=== PATIENT | female | born 1955 | race Caucasian/White ===

== ENCOUNTER 2020-06-27 09:33 | Outpatient (REF) | payer OTHER, SELFPAY ==
--- NOTE | ~2020-06-27 | MM_ITS ---
EXAMINATION: MM SCREENING DIGITAL BREAST TOMOSYNTHESIS, BILATERAL CLINICAL INFORMATION: Screening. Asymptomatic. The lifetime risk of breast cancer based on the Tyrer-Cuzick Model is 5%. COMPARISON: Mammography: 11/14/2018, 10/14/2017, 09/14/2016 TECHNIQUE: Digital breast tomosynthesis is performed in both the craniocaudal and mediolateral oblique views along with computer-aided detection (CAD). Synthesized 2D images are generated from the tomosynthesis. FINDINGS: There are scattered areas of fibroglandular density (ACR BI-RADS breast composition Category b). There are no significant masses, abnormal calcifications, or other abnormalities. Parenchymal pattern is similar to prior studies. No developing density. Again, there are scattered bilateral benign predominantly round and coarse calcifications. No significant changes. MM/MM tomosynthesis screening BI IMPRESSION: No mammographic evidence of malignancy. ASSESSMENT: BI-RADS 2: Benign RECOMMENDATION: Routine annual mammography screening. This patient's information was entered into a reminder system with a target due date for their next mammogram.
== END 2020-06-27 09:34 | disposition home or self-care (01) ==
LOC: HO.MAMMO 09:33
PROVIDERS: PCP Internal Medicine; Visit Provider Internal Medicine
DX: Z12.31 Encounter for screening mammogram for malignant neoplasm of breast (principal)
CPT/HCPCS: 77063; 77067

== ENCOUNTER 2020-09-22 15:12 | Outpatient (REF) | payer OTHER, SELFPAY ==
[2020-09-22 16:34] LABS: Thyroid Stimulating Hormone 2.59 uIU/mL (0.32-4.0)
== END 2020-09-22 15:13 | disposition home or self-care (01) ==
LOC: HO.LAB 15:12
PROVIDERS: PCP Internal Medicine; Visit Provider Internal Medicine
DX: E03.9 Hypothyroidism, unspecified (principal)
CPT/HCPCS: 36415; 84443

== ENCOUNTER 2021-07-24 09:56 | Outpatient (REF) | payer OTHER, SELFPAY ==
--- NOTE | ~2021-07-24 | MM_ITS ---
EXAMINATION: MM SCREENING DIGITAL BREAST TOMOSYNTHESIS, BILATERAL CLINICAL INFORMATION: Screening. Asymptomatic. The lifetime risk of breast cancer based on the Tyrer-Cuzick Model is 4.1%. COMPARISON: Mammography: June 27, 2020 and studies dating back to May 09, 2012 TECHNIQUE: Digital breast tomosynthesis is performed in both the craniocaudal and mediolateral oblique views along with computer-aided detection (CAD). Synthesized 2D images are generated from the tomosynthesis. FINDINGS: There are scattered areas of fibroglandular density (ACR BI-RADS breast composition Category b). There are no significant masses, abnormal calcifications, or other abnormalities. MM/MM tomosynthesis screening BI IMPRESSION: There are no significant changes from prior study. ASSESSMENT: BI-RADS 1: Negative RECOMMENDATION: Routine annual mammography screening. This patient's information was entered into a reminder system with a target due date for their next mammogram.
== END 2021-07-24 09:57 | disposition home or self-care (01) ==
LOC: HO.MAMMO 09:56
PROVIDERS: PCP Internal Medicine; Visit Provider Internal Medicine
DX: Z12.31 Encounter for screening mammogram for malignant neoplasm of breast (principal)
CPT/HCPCS: 77063; 77067

== ENCOUNTER 2021-09-18 08:01 | Outpatient (REF) | payer OTHER, SELFPAY ==
[2021-09-18 08:15] LABS: MANUAL DIFF FLAG NO
[2021-09-18 08:49] LABS: Basophils Percent Auto 0.8 % (0-2); Eosinophils Absolute Auto 0.2 X10*3/uL (0.0-0.4); Eosinophils Percent Auto 4.7 % (0-4); Hematocrit 38.9 % (37.0-47.0); Hemoglobin 13.7 g/dl (12.0-16.0); Imm Gran Abs Auto 0.03 X10*3/uL (0.00-0.03); Imm Gran Pct Auto 0.6 % (0.0-0.4); Lymphocytes Absolute Auto 1.8 X10*3/uL (1.2-4.9); Lymphocytes Percent Auto 34.5 % (20-40); Mean Corpuscular HGB Conc 35.2 g/dl (31.0-35.0); Mean Corpuscular Hemoglobin 32.5 pg (27.0-33.0); Mean Corpuscular Volume 92.4 fL (80.0-98.0); Monocytes Absolute Auto 0.6 X10*3/uL (0.1-1.2); Neutrophils Absolute Auto 2.5 x10*3/uL (2.0-8.3); Neutrophils Percent Auto 48.4 % (45-73); Platelet Count 289 X10*3/uL (160-400); Red Blood Count 4.21 X10*6/uL (4.20-5.50); Red Cell Distribution Width 12.6 % (11.0-16.0); White Blood Count 5.2 X10*3/uL (4.8-10.8)
[2021-09-18 09:34] LABS: Alanine Aminotransferase 20 U/L (0-31); Alkaline Phosphatase 56 U/L (39-117); Anion Gap 11 (12-20); Aspartate Amino Transferase 20 U/L (5-31); Bilirubin Total 0.8 mg/dL (0.0-1.0); Blood Urea Nitrogen 20 mg/dL (9-16); Calcium 9.3 mg/dL (8.4-10.2); Carbon Dioxide 32 mmol/L (22-29); Chloride 103 mmol/L (96-108); Cholesterol 236 mg/dL; Estimated Glomerular Filt Rate > 60; Glucose Fasting 101 mg/dL (60-99); HDL Cholesterol 43 mg/dL; LDL Cholesterol Calculated 127 mg/dl; Potassium 3.3 mmol/L (3.3-5.1); Sodium 143 mmol/L (135-145); Total Protein 6.5 g/dL (6.5-8.0); Triglycerides 331 mg/dL
[2021-09-18 09:44] LABS: Thyroid Stimulating Hormone 3.07 uIU/mL (0.32-4.0)
== END 2021-09-18 08:02 | disposition home or self-care (01) ==
LOC: HO.LAB 08:01
PROVIDERS: PCP Internal Medicine; Visit Provider Internal Medicine
DX: Z00.00 Encounter for general adult medical examination without abnormal findings (principal)
CPT/HCPCS: 36415; 80053; 80061; 84443; 85025

== ENCOUNTER 2022-07-30 09:48 | Outpatient (REF) | payer OTHER, SELFPAY ==
--- NOTE | ~2022-07-30 | MM_ITS ---
EXAMINATION: MM SCREENING DIGITAL BREAST TOMOSYNTHESIS, BILATERAL CLINICAL INFORMATION: Screening. Asymptomatic. The lifetime risk of breast cancer based on the Tyrer-Cuzick Model is 4%. COMPARISON: Mammography: 07/24/2021, 06/27/2020, 11/14/2018, 10/14/2017 TECHNIQUE: Digital breast tomosynthesis is performed in both the craniocaudal and mediolateral oblique views along with computer-aided detection (CAD). Synthesized 2D images are generated from the tomosynthesis. FINDINGS: There are scattered areas of fibroglandular density (ACR BI-RADS breast composition Category b). There are no significant masses, abnormal calcifications, or other abnormalities. Parenchymal pattern is similar to prior studies. There is no developing density or architectural abnormality. The axilla and skin contours are unremarkable. No significant changes. MM/MM tomosynthesis screening BI IMPRESSION: No mammographic evidence of malignancy. ASSESSMENT: BI-RADS 1: Negative RECOMMENDATION: Routine annual mammography screening. This patient's information was entered into a reminder system with a target due date for their next mammogram.
== END 2022-07-30 09:49 | disposition home or self-care (01) ==
LOC: HO.MAMMO 09:48
PROVIDERS: PCP Internal Medicine; Visit Provider Internal Medicine
DX: Z12.31 Encounter for screening mammogram for malignant neoplasm of breast (principal)
CPT/HCPCS: 77063; 77067

== ENCOUNTER 2022-09-24 08:25 | Outpatient (REF) | payer OTHER, SELFPAY ==
[2022-09-24 09:41] LABS: Cholesterol 231 mg/dL; HDL Cholesterol 40 mg/dL; Triglycerides 411 mg/dL
== END 2022-09-24 08:26 | disposition home or self-care (01) ==
LOC: HO.LAB 08:25
PROVIDERS: PCP Internal Medicine; Visit Provider Internal Medicine
DX: E03.9 Hypothyroidism, unspecified (principal); E78.5 Hyperlipidemia, unspecified
CPT/HCPCS: 36415; 80061; 84443

== ENCOUNTER 2023-02-06 06:13 | Day surgery (SDC) | payer OTHER, SELFPAY ==
--- NOTE | 2023-02-03 08:50 | HO.ANESPROP2 ---
Documented by User: Raisa Caruso NP 02/03/23 08:50 HPI - Anesthesia Eval Consult details Narrative: 67yo F for Colonoscopy PMFSH Active Problems Active Problems: All Active Problems (Updated 03/29/22 @ 14:07 by Michael Valadez MD) Physical exam (Acute) Hypothyroidism (Acute) Hypertension (Acute) Past Medical History Medical History Hypothyroidism Hypertension Family History Family History Father Melanoma Mother Alive and well Paternal Grandmother Uterine cancer Sister Pheochromocytoma Surgical History Surgical History Hx of colonoscopy History of carpal tunnel release History of spinal surgery Social History Social History Housing: House Alcohol intake: current Alcohol intake frequency: a few times a month Patient Tobacco Use Status: Former Tobacco user Tobacco use type: Cigarette e-Cigarette/Vaping Use: Never Used Second Hand Smoke Exposure: No Have you been hit, kicked, punched, or otherwise hurt by someone within the past year? If so, by whom?: No Are you DNR?: No Advance Directives: No Advance Directives Information Provided: Yes Recently lost weight without trying: No Eating poorly because of decreased appetite: No Nutrition Risks: No Nutritional Risk Patient : No service: No Current occupational status: employed Cognitive needs: No Hearing needs: No Vision needs: Yes Meds Allergies Allergy/AdvReac Type Severity Reaction Status Date / Time No Known Allergies Allergy Mild N/A Verified 09/28/22 14:18 Home Medications Medication Instructions Recorded Confirmed Last Taken Type aspirin 81 mg capsule,delayed 81 mg PO DAILY 02/03/23 02/03/23 Unknown History release calcium carbonate 500 mg-vitamin 1 tab PO DAILY 02/03/23 02/03/23 Unknown History D3 10 mcg (400 unit) tablet (Calcium 500 + D) [id number] 8 mg-folic 400 1 tab PO DAILY 02/03/23 02/03/23 Unknown History mcg-K 50 mcg-lutein 300 mcg tablet (Multivitamin Women 50 Plus) Exam Exam Date and Time: February 03, 2023 0850 Assessment and Plan Assessment Anesthesia Assessment: Chart Reviewed Documented by User: Brandy Fuentes MD 02/06/23 07:31 PMF Active Problems Active Problems: All Active Problems (Updated 02/06/23 @ 07:20 by Brandy Fuentes MD) Physical exam (Acute) Hypothyroidism (Acute) Hypertension (Acute) Past Medical History Medical History Hypothyroidism Hypertension Family History Family History Father Melanoma Mother Alive and well Paternal Grandmother Uterine cancer Sister Pheochromocytoma Family history of problems with anesthesia: No Surgical History Surgical History Hx of colonoscopy History of carpal tunnel release History of spinal surgery History of Problems with Anesthesia: No Social History Social History Housing: House Alcohol intake: current Alcohol intake frequency: a few times a month Patient Tobacco Use Status: Former Tobacco user Tobacco use type: Cigarette e-Cigarette/Vaping Use: Never Used Second Hand Smoke Exposure: No Have you been hit, kicked, punched, or otherwise hurt by someone within the past year? If so, by whom?: No Are you DNR?: No Advance Directives: No Advance Directives Information Provided: Yes Recently lost weight without trying: No Eating poorly because of decreased appetite: No Nutrition Risks: No Nutritional Risk Patient : No service: No Current occupational status: employed Cognitive needs: No Hearing needs: No Vision needs: Yes Meds Allergies Allergy/AdvReac Type Severity Reaction Status Date / Time No Known Allergies Allergy Mild N/A Verified 09/28/22 14:18 Home Medications Medication Instructions Recorded Confirmed Last Taken Type aspirin 81 mg capsule,delayed 81 mg PO DAILY 02/03/23 02/03/23 Unknown History release calcium carbonate 500 mg-vitamin 1 tab PO DAILY 02/03/23 02/03/23 Unknown History D3 10 mcg (400 unit) tablet (Calcium 500 + D) [id number] 8 mg-folic 400 1 tab PO DAILY 02/03/23 02/03/23 Unknown History mcg-K 50 mcg-lutein 300 mcg tablet (Multivitamin Women 50 Plus) Exam Height,Weight and Vital Signs: Height 5 ft 3 in Weight 66.678 kg Vital Signs Temp Pulse Resp BP Pulse Ox O2 Del Method 02/06/23 07:02 97.6 F 104 H 18 157/82 H 94 Room Air Airway Mallampati Class: II TM Dist: >3cm Neck ROM: Full Loose/Missing/Broken Teeth: Yes (Missing 2 teeth bottom right and left. Denies broken or loose teeth) Heart: RRR Lungs: CTAB Assessment and Plan Assessment Anesthesia Assessment: Anesthesia Plan Discussed Final Anesthetic Review Family History of Problems with Anesthesia: No History of Problems with Anesthesia: No NPO: Yes ASA Class: II Final Preanesthetic Review: No Changes in Pt Med Stat, Meds/Allgs Chart Reviewed, Consent Obtained/Reviewed and Anes Risks/Benef Reviewed Patient Risk: Low Procedure Risk: Low Assessment/Block/Sedation in SS: Assess/Block/Sedation-SS Anesthetic Plan Anesthetic Plan: MAC: Disposition: Standard PACU
[2023-02-06 07:02] VITALS: BP 157/82; PULSE 104; RESP 18; TEMP 36.4; O2SAT 94; BMI 26.0
[2023-02-06] MEDS: Lactated Ringers 1,000 ML 100 ML IVCONT (07:10)
[2023-02-06 08:31] VITALS: BP 112/64; PULSE 83; RESP 16; TEMP 36.6; O2SAT 94
--- NOTE | 2023-02-06 08:38 | PM.OP ---
Brief Operative Note Date of Service: 02/06/23 Pre-op diagnosis: Screening Post-op diagnosis: other (Mass on ICV) Procedure: Colonoscopy to the cecum with biopsies Surgeon: Tom Roberts Anesthesia: MAC Was an Union Organizer used for this Procedure?: No Estimated blood loss (mL): 2.0 Pathology: other (A. Mass on ICV) Condition: stable Disposition: PACU
[2023-02-06 08:46] VITALS: BP 111/63; PULSE 82; RESP 18; TEMP 36.1; O2SAT 96
--- NOTE | 2023-02-06 09:21 | OP_ITS ---
DATE OF SERVICE: 02/06/2023 SURGEON: Tom Roberts MD INDICATIONS: Patient presents for evaluation of colorectal cancer screening. Full consent has been obtained from her for this, including risks of bleeding and perforation. PREOPERATIVE DIAGNOSIS: Colorectal cancer screening. POSTOPERATIVE DIAGNOSIS: Colorectal cancer screening, ulcerated polypoid mass on ileocecal valve, diverticulosis, and internal hemorrhoids. PROCEDURE PERFORMED: Colonoscopy to the cecum with biopsies. ESTIMATED BLOOD LOSS: COMPLICATIONS: ANESTHESIA: Monitored anesthesia care. ASSISTANTS: SPECIMENS: DESCRIPTION OF PROCEDURE: The patient was placed in the left lateral decubitus position. The digital rectal exam revealed no abnormalities. The Olympus video pediatric colonoscope was entered into the rectum and advanced easily to the cecum. Once in the cecum, I did identify a normal-appearing cecal pouch with appendiceal orifice. The entire cecum was well visualized and appeared normal. There was transillumination of light deep in the right lower quadrant. The ileocecal valve had a definitive abnormality on the portion of the valve closest to the ascending colon. There was an ulcerated polypoid portion of the valve, which was quite friable, but relatively soft. Multiple biopsies were obtained from it. I was not able to achieve a free cannulation of the terminal ileum, but I was able to visualize portions of the ileum that did look normal. After obtaining multiple biopsies from the suspicious area of the ileocecal valve, the scope was then slowly withdrawn, assessing all mucosal surfaces carefully. Preparation was excellent. I did not visualize any sign of polyps, colitis, nor angiodysplasia. There was a mild amount of sigmoid diverticulosis. In the rectum, scope was retroflexed, visualizing internal hemorrhoids, but no other pathology. The rectal mucosa appeared normal. Scope was straightened and withdrawn from the patient. She tolerated the procedure well and was returned to recovery area in stable condition. IMPRESSION: 1. Suspicious ulcerated polypoid lesion on ileocecal valve, status post biopsy. 2. Diverticulosis. 3. Internal hemorrhoids. PLAN: The results of the biopsies will be checked and further plans to be made accordingly. Obviously, this if is a neoplasm she will need a surgical referral and CT scan. I do not think this represents isolated inflammatory bowel disease as she has no symptoms in that regard. If this is cancer, she would then need a followup colonoscopy 1 year after surgery. This has been discussed with her . She was advised not to use any aspirin and NSAIDs terminal gauger until the issue is settled with this mass and if she needs surgery. MD ABHAY Dukes/BROOKS / [phone] MTDD
== END 2023-02-06 09:14 | disposition home or self-care (01) ==
PROVIDERS: PCP Internal Medicine; Visit Provider Internal Medicine
PROC: 0DJD8ZZ Inspection of Lower Intestinal Tract, Via Natural or Artificial Opening Endoscopic (ICD-10-PCS; CPT 45378; principal; 2023-02-06 07:30)
DX: Z12.11 Encounter for screening for malignant neoplasm of colon (principal); C7A.021 Malignant carcinoid tumor of the cecum; K57.30 Diverticulosis of large intestine without perforation or abscess without bleeding; K64.8 Other hemorrhoids; I10 Essential (primary) hypertension; E06.3 Autoimmune thyroiditis; Z79.82 Long term (current) use of aspirin; Z79.899 Other long term (current) drug therapy; Z98.1 Arthrodesis status; Z87.891 Personal history of nicotine dependence
CPT/HCPCS: 45380; 88305; 88341; 88342; 88360

== ENCOUNTER 2023-02-08 15:52 | Outpatient (AMB) | payer OTHER, SELFPAY ==
--- NOTE | 2023-02-08 15:53 | A.OFFVIS_ITS ---
Intake Vital Signs 02/08/23 15:58 Height 5 ft 3 in Weight 147 lb BMI 26.0 BP 164/85 H Blood Pressure Location Lt brachial Position Sitting Pulse 103 H Intake Visit Reasons: Suspicious ulcerated polypoid lesion Intake Note: This patient presents for an assessment for suspicious ulcerated polypoid lesion. Patient c/o; reports no problems with bowel movements or rectal bleeding. Patient Placement Coordinator Required: No Accompanied by: Other Relationship Allergies No Known Allergies Allergy (Mild, Verified 02/08/23 15:57) N/A Medication List - Last Reconciled 02/08/23 by Mg Ahmadi MD aspirin 81 mg PO DAILY calcium carbonate-vitamin D3 500 mg-10 mcg (400 unit) (Calcium 500 + D) 1 tab PO DAILY hydrochlorothiazide 25 mg PO DAILY levothyroxine 75 mcg PO DAILY jlnuqevw-ail-iujr-FA-vit K-lut 8 mg iron-400 mcg-50 mcg (Multivitamin Women 50 Plus) 1 tab PO DAILY HPI Suspicious ulcerated polypoid lesion HPI Details 67-year-old female referred for a lesion in the ileocecal valve. She had undergone a screening colonoscopy with Dr. Roberts last 02/06/2023. She was noted to have an ulcerated polypoid mass adjacent to the ileocecal valve towards the cecum side and this was biopsied. Path report had shown a neuroendocrine tumor. She was therefore referred to me. She otherwise denies any GI complaints. She states that she has been up-to-date with her colonoscopies. She denies any history of flushing, diarrhea, bronchospasms or tachycardia. [facility] Medical History (Updated 02/08/23 @ 15:59 by Mg Ahmadi MD) Neuroendocrine neoplasm of gastrointestinal tract Hypothyroidism Hypertension Surgical History Hx of colonoscopy History of carpal tunnel release History of spinal surgery Family History Father Melanoma Mother Alive and well Paternal Grandmother Uterine cancer Sister Pheochromocytoma Social History Housing: House Alcohol intake: current Alcohol intake frequency: a few times a month Patient Tobacco Use Status: Former Tobacco user Tobacco use type: Cigarette e-Cigarette/Vaping Use: Never Used Second Hand Smoke Exposure: No service: No Current occupational status: employed Cognitive needs: No Hearing needs: No Vision needs: Yes Review of Systems Const Denies chills and Denies fever(s) Card Denies chest pain, Denies dyspnea and Denies dyspnea on exertion Resp Denies cough, Denies dyspnea and Denies dyspnea on exertion GI Denies hematochezia and Denies change in bowel habits Denies hematuria Musc Denies back pain and Denies limited range of motion Neuro Denies focal weakness and Denies convulsions Psych Denies depression and Denies mood swings Physical Exam Vital Signs: Last Vital Signs Pulse 103 H 02/08/23 15:58 BP 164/85 H 02/08/23 15:58 BMI result Body Mass Index 26.0 Const General: comfortable and no acute distress Orientation/consciousness: patient oriented x3 Neck Neck: Yes no lymphadenopathy Resp Auscultation: clear to auscultation bilaterally Cardio Rhythm: regular rhythm GI Palpation (GI): Soft to palpation, nontender and no guarding Neuro General: patient oriented x3 Assessment & Plan Assessment & Plan (1) Neuroendocrine neoplasm of gastrointestinal tract: Code(s): D3A.8 - Other benign neuroendocrine tumors Plan: Her colonoscopy last February 06 showed this polypoid, ulcerated lesion in the ileocecal valve. Biopsies of these had shown a well-differentiated neuroendocrine tumor, grade 1-2. As per NCCN guidelines, she will require bowel resection with evaluation of the lymph nodes. I explained the technique of hand assisted laparoscopic right colon resection. Reviewed the risks including but not limited to bleeding, infections, injury to bowel and other organs inside the abdomen, blood clots, pneumonia, staple line leak, possible need for stoma, as well as the benefits and alternatives. She wants to proceed. Part of the workup, we will order for a CAT scan of the abdomen and pelvis. We will also have her evaluated by the oncologist prior to the surgical resection. I also explained to her what to expect postoperatively. Orders: Orders Blood Urea Nitrogen 02/08/23 D3A.8 - Other benign neuroendocrine tumors Creatinine 02/08/23 D3A.8 - Other benign neuroendocrine tumors Referrals Hematology & Oncology Referral D3A.8 - Other benign neuroendocrine tumors Coding Level of Care Code New Pt Level 4 (38925) Diagnoses Neuroendocrine neoplasm of gastrointestinal tract D3A.8
[2023-02-08 15:58] VITALS: BP 164/85; PULSE 103; BMI 26.0
== END 2023-02-08 16:19 | disposition home or self-care (01) ==
PROVIDERS: PCP Internal Medicine; Referring Provider Internal Medicine; Visit Provider Surgery
DX: D3A.8 Other benign neuroendocrine tumors (principal)
CPT/HCPCS: 99204

== ENCOUNTER 2023-02-08 15:52 | Outpatient (REF) | payer OTHER, SELFPAY ==
[2023-02-08 18:30] LABS: Blood Urea Nitrogen 18 mg/dL (9-16); Estimated Glomerular Filt Rate > 60
== END 2023-02-08 15:53 | disposition home or self-care (01) ==
LOC: HO.LAB 15:52
PROVIDERS: PCP Internal Medicine; Referring Provider Internal Medicine; Visit Provider Surgery
DX: D3A.8 Other benign neuroendocrine tumors (principal)
CPT/HCPCS: 36415; 82565; 84520

== ENCOUNTER 2023-02-20 11:14 | Outpatient (REF) | payer OTHER, SELFPAY ==
--- NOTE | ~2023-02-20 | CT_ITS ---
EXAMINATION: CT ANGIOGRAM ABDOMEN AND PELVIS CLINICAL INFORMATION: Other benign neuroendocrine tumors. COMPARISON: CT abdomen and pelvis 05/31/2019. TECHNIQUE: Multiple axial images were obtained through the abdomen and pelvis following the administration of 80 mL of Omnipaque 350 intravenous contrast. 3D POSTPROCESSIN-D MIP images were processed from the initial data set by the dairy technologist on the technologist workstation under concurrent physician supervision. This CT examination was performed using dose optimization techniques as appropriate, variously including the following: *Automated exposure control *Adjustment of mA and/or kV according to patient size (this includes techniques or standardized protocols for targeted exams where dose is matched to indication/reason for exam; i.e. extremities or head) *Use of iterative reconstruction technique DLP: 229 mGy-cm FINDINGS: The lower thoracic aorta is normal in caliber. The abdominal aorta is normal in caliber. There is mild diffuse aortoiliac atherosclerosis without hemodynamically significant stenosis. The celiac artery is patent. The common hepatic and splenic arteries are patent. Hepatic arterial anatomy appears classic. The superior mesenteric artery is patent. The inferior mesenteric artery is patent. Single right renal artery with minimal ostial disease. Single left renal artery with minimal ostial disease. Nephrograms are symmetric. The liver is normal in size. Question mild hepatic steatosis. No discrete arterial enhancing liver lesion. Tiny hypodensities in segment 2 measures simple fluid density consistent with cysts. No follow-up imaging is recommended. No intrahepatic or extrahepatic biliary ductal dilatation. The gallbladder is unremarkable. The pancreatic duct measures 3 mm in diameter. No focal parenchymal atrophy. No discrete arterial enhancing lesion in the pancreas. No adrenal mass. Symmetric nephrograms. Tiny bilateral cortical hypodensities are too small to characterize but most likely cysts and no follow-up imaging is recommended. No nephrolithiasis or hydronephrosis. There are small peripelvic cysts bilaterally for which no imaging follow-up is recommended. The urinary bladder is unremarkable. The uterus and ovaries are unremarkable. No pelvic mass. 2.0 x 1.2 x 1.7 cm vague area of hyperenhancement at the ileocecal valve. Small bowel and large bowel are normal in caliber. Mildly prominent 7 mm node in the ileocolic mesentery. The appendix appears normal. Mild sigmoid diverticulosis. Small fat-containing inguinal hernia on the left, appears indirect type No lymphadenopathy. Lumbar fusion L4-L5. Degenerative disc disease at L5-S1. CT/CT angio abdomen pelvis IMPRESSION: Mild aortoiliac atherosclerosis. No aortic aneurysm. Celiac, SMA, MELITA are widely patent. Hepatic vascular anatomy appears classic. 2.0 x 1.2 x 1.7 cm vague area of hyperenhancement at the ileocecal valve may reflect the reported benign neuroendocrine tumor. There is a mildly prominent lymph node in the ileocolic mesentery measuring 7 mm. Recommend correlation with clinical history and colonoscopy. No discrete pancreatic lesion. Fleischner guidelines were followed.
[2023-02-20] MEDS: iohexoL 350 MG/ML 100 ML INFUS..BTL 80 ML IV (13:04)
== END 2023-02-20 11:15 | disposition home or self-care (01) ==
LOC: HO.CT 11:14
PROVIDERS: PCP Internal Medicine; Visit Provider Surgery
DX: D3A.8 Other benign neuroendocrine tumors (principal)
CPT/HCPCS: 74174; Q9967

== ENCOUNTER 2023-03-02 07:20 | Inpatient (IN) | payer OTHER, SELFPAY ==
--- NOTE | 2023-02-28 | ECG_ITS ---
Test Reason : pre op Blood Pressure : / mmHG Vent. Rate : 087 BPM Atrial Rate : 087 BPM P-R Int : 214 ms QRS Dur : 084 ms QT Int : 388 ms P-R-T Axes : 045 021 026 degrees QTc Int : 466 ms Sinus rhythm with 1st degree A-V block Otherwise normal ECG When compared with ECG of 05-APR-2012 11:53, [place] interval has increased Referred By: Raisa Caruso Electronically Signed By:SATISH OAKLEY MD
[2023-02-28 12:23] VITALS: BP 145/83; PULSE 88; RESP 16; O2SAT 96; BMI 26.4
--- NOTE | 2023-02-28 12:32 | P.CONAN_ITS ---
Documented by User: Raisa Caruso NP 03/01/23 09:34 HPI - Anesthesia Eval Consult details Narrative: 67yo F for Right Colon Resection Laparoscopic,poss open s/p colo 02/07/23 with TIVA No recent illness No CP/SOB with > 4mets GERD. Rare. Controlled with prn TUMS Hypothyroid. TSH WNL 09/2022 PMFSH Active Problems Active Problems: All Active Problems (Updated 02/28/23 @ 12:13 by Mily Hines RN) Physical exam (Acute) Neuroendocrine neoplasm of gastrointestinal tract (Acute) Hypothyroidism (Acute) Hypertension (Acute) Past Medical History Medical History (Updated 02/28/23 @ 12:13 by Mily Hines RN) GERD (gastroesophageal reflux disease) Restless leg Leslie's disease Vitiligo Neuroendocrine neoplasm of gastrointestinal tract Hypothyroidism Hypertension Family History Family History Father Melanoma Mother Alive and well Paternal Grandmother Uterine cancer Sister Pheochromocytoma Family history of problems with anesthesia: No Surgical History Surgical History (Updated 02/17/23 @ 11:04 by Nisha Mejia MD) Hx of colonoscopy History of carpal tunnel release History of spinal surgery History of Problems with Anesthesia: No Social History Social History (Updated 02/17/23 @ 11:01 by Cheryl De Los Santos) Household Members: Spouse Housing: House Are you a primary acute care nurse practitioner to a significant other at home: No Do you presently have visiting nurse or other home services: No Alcohol intake: current Alcohol intake frequency: a few times a month Patient Tobacco Use Status: Former Tobacco user Tobacco use type: Cigarette e-Cigarette/Vaping Use: Never Used Second Hand Smoke Exposure: No service: No Current occupational status: employed Cognitive needs: No Hearing needs: No Vision needs: Yes Meds Allergies Allergy/AdvReac Type Severity Reaction Status Date / Time No Known Allergies Allergy Mild N/A Verified 02/17/23 11:01 Home Medications Medication Instructions Recorded Confirmed Last Taken Type calcium carbonate 500 mg-vitamin 1 tab PO DAILY 02/03/23 02/28/23 03/01/23 History D3 10 mcg (400 unit) tablet (Calcium 500 + D) [id number] 8 mg-folic 400 1 tab PO DAILY 02/03/23 02/28/23 03/01/23 History mcg-K 50 mcg-lutein 300 mcg tablet (Multivitamin Women 50 Plus) levothyroxine 75 mcg tablet 75 mcg PO DAILY@0600 03/02/23 03/02/23 03/02/23 History Exam Exam Date and Time: February 28, 2023 1232 Height,Weight and Vital Signs: Height 5 ft 3 in Weight 67.585 kg Last Vital Signs Pulse 88 02/28/23 12:23 Resp 16 02/28/23 12:23 BP 145/83 H 02/28/23 12:23 Pulse Ox 96 02/28/23 12:23 O2 Del Method Room Air 02/28/23 12:23 Pertinent Lab Results Pertinent Lab Results: Laboratory Tests 09/24/22 08:31 TSH 3.10 Lab Results 02/28/23 02/28/23 Range/Units 13:17 13:25 WBC 5.5 (4.8-10.8) X10*3/uL RBC 4.24 (4.20-5.50) X10*6/uL Hgb 13.8 (12.0-16.0) g/dl Hct 38.5 (37.0-47.0) % MCV 90.8 (80.0-98.0) fL MCH 32.5 (27.0-33.0) pg MCHC 35.8 H (31.0-35.0) g/dl RDW 12.4 (11.0-16.0) % Plt Count 287 (160-400) X10*3/uL MPV 9.9 (9.4-12.3) fL Absolute Nucleated RBC 0.000 (0.0-0.012) X10*3/uL Nucleated RBC % (auto) 0.0 (0.0-0.2) /100WBC Sodium 143 (135-145) mmol/L Potassium 3.0 L (3.3-5.1) mmol/L Chloride 100 (96-108) mmol/L Carbon Dioxide 31 H (22-29) mmol/L Anion Gap 15 (12-20) BUN 16 (9-16) mg/dL Creatinine 0.82 (0.5-1.4) mg/dL Estim Creat Clear Calc 62.2 Estimated GFR > 60 Random Glucose 87 (60-115) mg/dL Calcium 10.5 H D (8.4-10.2) mg/dL Blood Type O Positive Antibody Screen NEGATIVE Narrative Narrative: EKG 02/2023 Vent. Rate : 087 BPM Atrial Rate : 087 BPM P-R Int : 214 ms QRS Dur : 084 ms QT Int : 388 ms P-R-T Axes : 045 021 026 degrees QTc Int : 466 ms Sinus rhythm with 1st degree A-V block Otherwise normal ECG When compared with ECG of 05-APR-2012 11:53, WV interval has increased Airway Mallampati Class: II TM Dist: >3cm Neck ROM: Full Loose/Missing/Broken Teeth: Yes (Missing 2 teeth bottom right and left. Denies broken or loose teeth) Heart: RRR Lungs: CTAB Assessment and Plan Assessment Anesthesia Assessment: Anesthesia Plan Discussed and PAT Visit Final Anesthetic Review Family History of Problems with Anesthesia: No History of Problems with Anesthesia: No Documented by User: Kyle Rosas MD 03/02/23 08:26 [facility] Past Medical History Medical History (Updated 02/28/23 @ 12:13 by Mily Hines RN) GERD (gastroesophageal reflux disease) Restless leg Leslie's disease Vitiligo Neuroendocrine neoplasm of gastrointestinal tract Hypothyroidism Hypertension Family History Family History Father Melanoma Mother Alive and well Paternal Grandmother Uterine cancer Sister Pheochromocytoma Surgical History Surgical History (Updated 02/17/23 @ 11:04 by Nisha Mejia MD) Hx of colonoscopy History of carpal tunnel release History of spinal surgery Social History Social History (Updated 02/17/23 @ 11:01 by Cheryl De Los Santos) Household Members: Spouse Housing: House Are you a primary acute care nurse practitioner to a significant other at home: No Do you presently have visiting nurse or other home services: No Alcohol intake: current Alcohol intake frequency: a few times a month Patient Tobacco Use Status: Former Tobacco user Tobacco use type: Cigarette e-Cigarette/Vaping Use: Never Used Second Hand Smoke Exposure: No service: No Current occupational status: employed Cognitive needs: No Hearing needs: No Vision needs: Yes Meds Allergies Allergy/AdvReac Type Severity Reaction Status Date / Time No Known Allergies Allergy Mild N/A Verified 02/17/23 11:01 Home Medications Medication Instructions Recorded Confirmed Last Taken Type calcium carbonate 500 mg-vitamin 1 tab PO DAILY 02/03/23 02/28/23 03/01/23 History D3 10 mcg (400 unit) tablet (Calcium 500 + D) wcgrtcnv-bdpf-kodh 8 mg-folic 400 1 tab PO DAILY 02/03/23 02/28/23 03/01/23 History mcg-K 50 mcg-lutein 300 mcg tablet (Multivitamin Women 50 Plus) levothyroxine 75 mcg tablet 75 mcg PO DAILY@0600 03/02/23 03/02/23 03/02/23 History Assessment and Plan Assessment Anesthesia Assessment: Chart Reviewed Final Anesthetic Review NPO: Yes ASA Class: III Final Preanesthetic Review: No Changes in Pt Med Stat, Meds/Allgs Chart Reviewed, Consent Obtained/Reviewed and Anes Risks/Benef Reviewed Patient Risk: Intermediate Procedure Risk: Intermediate Anesthetic Plan Anesthetic Plan: GA (will give potassium intraop.) and Agree w/ Assess. and Plan Disposition: Standard PACU
[2023-02-28 13:59] LABS: Hematocrit 38.5 % (37.0-47.0); Hemoglobin 13.8 g/dl (12.0-16.0); Mean Corpuscular HGB Conc 35.8 g/dl (31.0-35.0); Mean Corpuscular Hemoglobin 32.5 pg (27.0-33.0); Mean Corpuscular Volume 90.8 fL (80.0-98.0); Mean Platelet Volume 9.9 fL (9.4-12.3); Platelet Count 287 X10*3/uL (160-400); Red Blood Count 4.24 X10*6/uL (4.20-5.50); Red Cell Distribution Width 12.4 % (11.0-16.0); White Blood Count 5.5 X10*3/uL (4.8-10.8)
[2023-02-28 14:52] LABS: Anion Gap 15 (12-20); Blood Urea Nitrogen 16 mg/dL (9-16); Calcium 10.5 mg/dL (8.4-10.2); Carbon Dioxide 31 mmol/L (22-29); Chloride 100 mmol/L (96-108); Creatinine Clr Calc Pharmacy 62.2; Estimated Glomerular Filt Rate > 60; Glucose Random 87 mg/dL (60-115); Sodium 143 mmol/L (135-145)
[2023-03-02] VITALS (18 sets, daily range): BP systolic 104–151; BP diastolic 57–83; PULSE 84–108; RESP 6–18; TEMP 36.2–37.1; O2SAT 93–99; BMI 28.1
[2023-03-02 06:32] LABS: Potassium 3.2 mmol/L (3.3-5.1)
--- NOTE | 2023-03-02 07:22 | MHC.SHP ---
Pre-Procedural Eval Section A Date of Service: 03/02/23 The patient is an INPATIENT: No Changes since office visit: Yes Cold of Flu in the past 2 weeks, Yes New Medical Problems, Yes Changes in Medication and Yes Patient answered all questions The History & Physical has been completed within 30 days and I have reviewed it.: Yes Section B Chief Complaint: Other benign neuroendocrine tumors Allergies: Allergies Allergy/AdvReac Type Severity Reaction Status Date / Time No Known Allergies Allergy Mild N/A Verified 02/17/23 11:01 Plan I have reviewed the history and physical and performed a pertinent physical examination on my patient. No changes have occurred unless specified. Time Spent With Patient Time: Total time managing care of this patient today ____ minutes.
--- OUTSIDE RECORDS SUMMARY | 2023-03-02 07:28 | XMS_ITS | Patient Health Record ---
Author Name Unknown Organization [facility] Address [address] [place] [address] Care Team Providers Care Aerial Applicator Pilot Name Role Phone Michael Valadez MD Primary Care Provider Tom Llamas [phone] ALLERGIES No Known Allergies RESULTS Component Value Reference Range Notes Pathology (Not yet reviewed by provider) Interpretation: Performing Lab:[facility], [address] [place] [id number] Notes/Report: REASON FOR REFERRAL No Information MEDICATIONS Medication SIG (Take, Route, Frequency, Duration) Notes Start Date End Date Status One A Day Women 50 Plus - as directed Orally Active Calcium + D 500-1000-40 MG-UNT-MCG as directed Orally Active Aspirin 81 81 MG 1 tablet Orally Once a day for 30 day(s) Active hydroCHLOROthiazide 25 MG 1 tablet in th e morning Orally Once a day for 30 day(s) Active Levothyroxine Sodium 75 MCG 1 tablet in the morning on an empty stomach Orally Once a day for 30 day(s) Active IMMUNIZATIONS Vaccine Route Administration Date Status Comme nts Influenza Unknown 02/22/2022 Administered SOCIAL HISTORY Tobacco Use: Social History Observation Description Date Details (start date - stop date) Never Smoker NA - NA Sex Assigned At : Social History Observation Description Sex Assigned At Unknown Tobacco Use/Smoking Question Answer Notes Patient is a nonsmoker Alcohol Screen Question Answer Notes Did you have a drink contain ing alcohol in the past year? Yes How often did you have a dri nk containing alcohol in the past year? 2 to 4 times a month (2 points) How many drinks did you have on a typical day when you were drinking in the past year? 1 or 2 drinks (0 point) How often did you have 6 or more drinks on one occasion in the past year? Never (0 point) Points 2 Interpretation Negative PROBLEMS Problem Type ICD Code Onset Dates Problem Status W/U Status Risk SNOMED Code Notes Problem Colon cancer screening (Z12.11) Active confirmed 042822098 Problem Preprocedural examination (Z01.818) Active confirmed 546070094009740 Problem Diverticulosis of large intestine without perforation or abscess without bleeding (K57.30) Active confirmed Diverticul ar disease of colon (065541596) Encounters Encounter Location Date Provider Diagnosis [facility] Outpatient [address] [place] [id number] 11/28/2022 Tom Roberts [facility] Outpatient [address] [place] [phone] 02/06/2023 Tom Roberts Encounter for screen ing colonoscopy Z12.11 ; Other specified diseases of intestine K63.89 ; Diverticulosis of large intestine without perforation or abscess without bleeding K57.30 and Other hemorrhoids K64.8 [facility] [address] [place] [phone] 08/24/2022 Tom Roberts [facility] [address] [place] [phone] 09/07/2022 Tom Roberts Colon cancer screeni ng Z12.11 and Preprocedural examination Z01.818 [facility] [address] [place] [phone] 09/07/2022 Tom Roberts [facility] [address] [place] [phone] 02/01/2023 Tom Roberts [facility] [address] [phone] 02/07/2023 Tom Roberts ASSESSMENTS Encounter Date Diagnosis Assessment Notes Treatment Notes Treatment Clinical Notes 02/06/2023 Encounter for screening colonoscopy (ICD-10 - Z12.11) 02/06/2023 Other specified diseases of intestine (ICD-10 - K63.89) 09/07/2022 Colon cancer screening (ICD-10 - Z12.11) Stop aspirin for 1 week before the colonoscopy Do not take the Hydrochlorothiaizde the day before nor on the day of the colonoscopy 09/07/2022 Preprocedural examination (ICD-10 - Z01.818) 02/06/2023 Diverticulosis of large intestine without perforation or abscess without bleeding (ICD-10 - K57.30) 02/06/2023 Other hemorrhoids (ICD-10 - K64.8) PLAN OF TREATMENT Pending Test Test Name Order Date Pathology 02/06/2023 Future Test Test Name Order Date COLONOSCOPY 09/07/2022 Insurance Providers Payer Name Payer Address Payer Phone Subscriber Number Group Number Insured Name Patient Relationship to Insured Coverage Start Date Coverage End Date [facility] [address] [place] [address] [phone] [id number] GIOVANNI SILVEIRA Self - patient is the insured MEDICAL (GENERAL) HISTORY Medical History History ICD Code HTN Leslie's Negative colonoscopy with Dr. Galdino goodman her early 50's Denies CT,DM,CVA,Lung disease,renal dise ase Surgical History Surgery Date(Month/Year) L4-L5 fusion 2011 Right carpal tunnel 2006
--- NOTE | 2023-03-02 07:32 | PHA.MEDREC ---
Pharmacy Consult ? Medication Reconciliation Pharmacy has completed the medication reconciliation. Reviewed med rec done by nursing
--- NOTE | 2023-03-02 09:22 | P.OP_ITS ---
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 Biopsies had shown and neuroendocrine tumor. She understood the technique of hand assisted laparoscopic right colon resection and was aware of the risks, benefits, and alternatives She was brought to the operating room. He was placed supine under general anesthesia via endotracheal tube. A Amaral catheter had been inserted. The abdomen was prepped and draped in the usual sterile fashion. A surgical time- out was done. The patient received Cefotan 2 g IV preoperatively I made a short incision in the midline at the level of the umbilicus using blade 15. This was carried down through the full-thickness of the skin subcutaneous fat down to the fascia. The fascia was incised. The peritoneum was entered. We positioned the Manpreet wound protractor and we attached the GelPort along with an insufflating port. We insufflated to a pressure of 15 minutes hg. With laparoscopic visualization using a 10 mm 30 degree scope through the GelPort, we inserted a 5/12 minutes port epigastric area and a 5 mm port in the left upper quadrant. I moved the camera towards the epigastric port. The patient was placed in [id number] position. I inserted my left hand through the GelPort. I reflected bowel loops away from the right side. This allowed me to realize the cecum easily. I followed the cecum was colon. I reflected the right colon was the left side to expose the white line of Toldt. I divided the white line and told using the LigaSure starting from the cecum all the way to the hepatic flexure. I proceeded to continue to divide the hepatocolic ligaments using the LigaSure the way to the midtransverse colon. I continue to separate the right colon from the retroperitoneum with the LigaSure as well as with blunt dissection and carefully divided the rest of the thin fibrous adhesions in the retroperitoneum. Continued to mobilize the colon along with the mesentery until I was able to clearly visualize the duodenum. This marked the medial limit of our dissection. I proceeded to continue to divide more of the hepatocolic ligaments and some gastrocolic ligaments to allow good mobilization of the entire right colon. I then proceeded divide some peritoneal attachments along the under the terminal ileum. It appeared that we had good mobilization at this point of the entire right colon to allow our resection as well as anastomosis. I desufflated. I brought out the entire right colon starting from the distal ileum all the way to the transverse colon through the small incision. I chose my point of dissection in the terminal ileum about 15 cm from the ileocecal valve. Created a mesenteric window and transected this using a JASON 60 mm sta pler. I then divided the mesentery of the right colon using the LigaSure, making sure that we were including adequate lymphatic basin. I continue with dissection until I reached the pedicle. I carefully dissected the pedicle to define this. I applied clamp on the ileocolic pedicle in a high ligation fashion. I divided this pedicle and applied multiple 2-0 ties. I then proceeded to use my point of transection in the mid transverse colon. I created a mesenteric window and divided this with a JASON 60 mm stapler. I created division of the rest of the attached mesentery, making sure that we had included the relevant basin. We sent the specimen for immediate gross exam with the pathologist I observed for hemostasis. I then proceeded to align the ileal stump and the transverse colon stump in preparation for a [id number] anastomosis. I opened up the apices base staple line to enter the lumen. I positioned each arm of the a 60 mm stapler in the anti mesenteric side of each lumen. I made sure that there was no bowel loops or mesentery caught between the carl. I then fired the stapler to create our [id number] anastomosis. I completed the anastomosis by closing the enterotomy with a TA 60 mm stapler. I examined all staple lines in this appeared to be intact. The anastomosis was patent when felt between the thumb and index finger. I placed Polysorb 3-0 stitch in a seromuscular fashion at the crotch of the staple line. There was no tension along the somewhat excited. The anastomosis appeared intact and well vascularized. I then positioned the anastomosed bowel back into the peritoneal cavity. I lateralized this. I reinserted the GelPort. We with laparoscopic visualization, I proceeded to position the omentum to overlie the area of the mass most this. I examined the entire peritoneal cavity laparoscopically. There was no evidence of any bowel injury or any other pathology. There was note of good hemostasis. There was no sign of any bleeding. Once hemostasis was confirmed, I proceeded to then desufflated the port sites and removed the GelPort as well as the Manpreet wound retractor. I left the PEG gastric port in place. I closed the fascia of the midline incision with a running Maxon 1 stitch. I examined the a closure laparoscopically and this appeared to be intact out any bowel or omentum caught by the sutures. I therefore removed the remaining port. I closed all skin incisions with subcuticular running Polysorb 4-0 sutures. All incisions were infiltrated with Marcaine 0.5% for postop analgesia. Dressings were applied. The procedure was completed. The patient tolerated the procedure well. There were no immediate complications. Initial and final counts of sponges and instruments were correct. Estimated blood loss about 25 cc . The patient was extubated without difficulty and transferred to the recovery room with stable vital signs. The pathologist had called towards the end and stated that the lesion was seen in the ileocecal valve and the margins were negative. Colon Resection Tumor location: Right colon and Hepatic flexure Extent of lymphovascular resection Right colon (cecum and ascending colon): from terminal ileum to hepatic flexure Hepatic flexure: from terminal ileum to hepatic flexure General Surg. - Synoptic Notes Colon Resection Tumor location: Right colon and Hepatic flexure Extent of Lymphovascular Resection: Right colon (cecum and ascending colon): from terminal ileum to hepatic flexure Hepatic flexure: from terminal ileum to hepatic flexure
[2023-03-02] MEDS: Lactated Ringers 1,000 ML 100 ML IVCONT ×2 (13:07→22:43)
[2023-03-02] MEDS: Acetaminophen 1,000 MG/100 ML PIGGYBACK 400 MG IV ×3 (13:07→22:43)
--- NOTE | 2023-03-02 15:33 | PM.EVENT ---
Event Note Date of Service: 03/02/23 Event Note: Seen postop in the room Underwent right colon resection earlier today Seems to have adequate pain control Stable vital signs Abdomen soft Dressings dry Amaral in place Good urine output, clear Continue pain management Incentive spirometry Await return of GI function in the room as well Time Spent With Patient Time: Total time managing care of this patient today ____ minutes.
[2023-03-02] MEDS: Morphine Sulfate 2 MG/ML CARTRIDGE 4 MG IVPUSH (17:29)
[2023-03-03] MEDS: Morphine Sulfate 2 MG/ML CARTRIDGE 4 MG IVPUSH (01:13)
[2023-03-03 03:40] VITALS: BP 135/66; PULSE 86; RESP 14; TEMP 36.1; O2SAT 96
[2023-03-03] MEDS: oxyCODONE HCl Immed Release 5 MG TABLET PO (05:19)
[2023-03-03] MEDS: Levothyroxine Sodium 75 MCG TABLET PO (05:19)
[2023-03-03] MEDS: Acetaminophen 1,000 MG/100 ML PIGGYBACK 400 MG IV ×2 (05:20→13:47)
[2023-03-03 05:52] LABS: MANUAL DIFF FLAG NO
[2023-03-03 06:01] LABS: Basophils Percent Auto 0.3 % (0-2); Eosinophils Absolute Auto 0.2 X10*3/uL (0.0-0.4); Eosinophils Percent Auto 2.7 % (0-4); Hematocrit 30.7 % (37.0-47.0); Hemoglobin 10.7 g/dl (12.0-16.0); Imm Gran Abs Auto 0.03 X10*3/uL (0.00-0.03); Imm Gran Pct Auto 0.5 % (0.0-0.4); Lymphocytes Absolute Auto 1.3 X10*3/uL (1.2-4.9); Lymphocytes Percent Auto 21.3 % (20-40); Mean Corpuscular HGB Conc 34.9 g/dl (31.0-35.0); Mean Corpuscular Hemoglobin 32.9 pg (27.0-33.0); Mean Corpuscular Volume 94.5 fL (80.0-98.0); Monocytes Absolute Auto 0.6 X10*3/uL (0.1-1.2); Monocytes Percent Auto 9.1 % (2-11); Neutrophils Absolute Auto 4.1 x10*3/uL (2.0-8.3); Neutrophils Percent Auto 66.1 % (45-73); Platelet Count 207 X10*3/uL (160-400); Red Blood Count 3.25 X10*6/uL (4.20-5.50); White Blood Count 6.3 X10*3/uL (4.8-10.8)
[2023-03-03 06:20] LABS: Anion Gap 12 (12-20); Blood Urea Nitrogen 12 mg/dL (9-16); Calcium 8.5 mg/dL (8.4-10.2); Carbon Dioxide 32 mmol/L (22-29); Chloride 102 mmol/L (96-108); Creatinine Clr Calc Pharmacy 65.7; Estimated Glomerular Filt Rate > 60; Glucose Random 96 mg/dL (60-115); Potassium 3.2 mmol/L (3.3-5.1); Sodium 143 mmol/L (135-145)
[2023-03-03 07:20] VITALS: BP 125/62; PULSE 84; RESP 18; TEMP 36.7; O2SAT 92
--- NOTE | 2023-03-03 08:23 | P.PNGS_ITS ---
Subjective Subjective Date of Service: 03/03/23 <Saira Nuñez PA-C - Last Filed: 03/03/23 08:29> 03/03/23 <Mg Ahmadi MD - Last Filed: 03/03/23 09:51> Interval history: Feels ok this morning, sore. Comfortable with pain meds. Tolerating clear liquids, denies flatus. Has not been OOB yet. <Saira Nuñez PA-C - Last Filed: 03/03/23 08:29> Physical Exam 2 Vital Signs: Vital Signs: Last Vital Signs Temp 98.0 F 03/03/23 07:20 Pulse 84 03/03/23 07:20 Resp 18 03/03/23 07:20 BP 125/62 03/03/23 07:20 Pulse Ox 92 03/03/23 07:20 O2 Del Method Nasal Cannula 03/03/23 07:20 O2 Flow Rate 2.5 03/03/23 07:20 BMI result Body Mass Index 28.1 <Saira Nuñez PA-C - Last Filed: 03/03/23 08:29> Const: General: comfortable, no acute distress and alert <Saira Nuñez PA-C - Last Filed: 03/03/23 08:29> Orientation/consciousness: patient oriented x3 <ALDO Cristina Last Filed: 03/03/23 08:29> Resp: Effort & Inspection: normal respiratory effort <Saira Nuñez PA-C - Last Filed: 03/03/23 08:29> GI: Inspection: No distended and Yes incision (dressings intact) <Saira Nuñez PA-C - Last Filed: 03/03/23 08:29> Palpation (GI): Soft to palpation, Tenderness to palpation present (GI) (incisional), no guarding and not rigid <ALDO Cristina Last Filed: 03/03/23 08:29> Percussion: Yes normal to percussion <ALDO Cristina Last Filed: 03/03/23 08:29> : Other: vincent in place <ALDO Cristina Last Filed: 03/03/23 08:29> Skin: General skin exam: no rashes or lesions noted <Saira Nuñez PA-C - Last Filed: 03/03/23 08:29> Neuro: General: patient oriented x3 <Saira Nuñez PA-C - Last Filed: 03/03/23 08:29> Objective Data Active Medications Al Hydroxide/Mg Hydroxide (Magnesium Hydrox/Alum Hydrox 30 Ml Oral.Susp) 30 ml PO Q4H PRN PRN Reason: Heartburn/Nausea Heparin Sodium (Porcine) (Heparin Sodium,Porcine 5,000 Unit/Ml Vial) 5,000 unit SUBCUT Q8H [facility] Hydrochlorothiazide (Hydrochlorothiazide 25 Mg Tablet) 25 mg PO DAILY [facility]; Protocol Lactated Ringer's (Lr) 1,000 mls @ 100 mls/hr IVCONT .Q10H [facility] Last Admin: 03/02/23 22:43 Dose: 100 mls/hr Documented By: SATISH Acetaminophen (Ofirmev) 1,000 mg in 100 mls @ 400 mls/hr IV Q6H [facility] Last Infusion: 03/03/23 05:39 Dose: Infused Documented By: SATISH Levothyroxine Sodium (Levothyroxine Sodium 75 Mcg Tablet) 75 mcg PO DAILY@0600 [facility] Last Admin: 03/03/23 05:19 Dose: 75 mcg Documented By: SATISH Melatonin (Melatonin 3 Mg Tablet) 6 mg PO BEDTIME PRN PRN Reason: Insomnia Morphine Sulfate (Morphine Sulfate 2 Mg/Ml Cartridge) 4 mg IVPUSH Q4H PRN; Protocol PRN Reason: Pain, Severe (Pain Scale 7-10) Last Admin: 03/03/23 01:13 Dose: 4 mg Documented By: SATISH Ondansetron HCl (Ondansetron Hcl 4 Mg/2 Ml Vial) 4 mg IVPUSH Q8H PRN PRN Reason: Nausea and Vomiting Oxycodone HCl (Oxycodone Hcl Immed Release 5 Mg Tablet) 5 mg PO Q4H PRN PRN Reason: Pain, Moderate(Pain Scale 4-6) Last Admin: 03/03/23 05:19 Dose: 5 mg Documented By: SATISH Oxycodone HCl (Oxycodone Hcl Immed Release 5 Mg Tablet) 10 mg PO Q4H PRN PRN Reason: Pain, Severe (Pain Scale 7-10) Sodium Chloride (0.9 % Sodium Chloride Flush 3 Ml Syringe) [facility] Last Admin: 03/02/23 19:59 Dose: Not Given Documented By: SATISH Non-Admin Reason: IV Running <Saira Nuñez PA-C - Last Filed: 03/03/23 08:29> Labs CBC & Chem 7: 03/03/23 05:11 03/03/23 05:11 <Saira Nuñez PA-C - Last Filed: 03/03/23 08:29> Labs: Laboratory Results - last 24 hr 03/03/23 05:11 MCV 94.5 MCH 32.9 MCHC 34.9 RDW 13.0 Plt Count 207 D MPV 10.0 Immature Gran % (Auto) 0.5 H Neut % (Auto) 66.1 Lymph % (Auto) 21.3 [place] % (Auto) 9.1 Eos % (Auto) 2.7 Baso % (Auto) 0.3 Lymph # (Auto) 1.3 [place] # (Auto) 0.6 Eos # (Auto) 0.2 Baso # (Auto) 0.0 Abs Immat Gran (auto) 0.03 Absolute Neuts (auto) 4.1 Absolute Nucleated RBC 0.000 Nucleated RBC % (auto) 0.0 Anion Gap 12 Estim Creat Clear Calc 65.7 Estimated GFR > 60 Random Glucose 96 Calcium 8.5 D <Saira Nuñez PA-C - Last Filed: 03/03/23 08:29> Procedures Date of Service Date of Service: 03/03/23 <Saira Nuñez PA-C - Last Filed: 03/03/23 08:29> 03/03/23 <Mg Ahmadi MD - Last Filed: 03/03/23 09:51> Progress Note: A&P Assessment and plan (1) 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 Doing well post op. Abd benign with intact dressings, appropriate post op tenderness. Dc vincent. Continue clear liquids for now until some evidence of return of GI function. Encourage OOB/ambulation and IS use. Await pathology. <Saira Nuñez PA-C - Last Filed: 03/03/23 08:29> Time Spent With Patient Time: Total time managing care of this patient today ____ minutes. <Saira Nuñez PA-C - Last Filed: 03/03/23 08:29> Quality Stroke Does the patient have a stroke diagnosis?: No <Saira Nuñez PA-C - Last Filed: 03/03/23 08:29> VTE Prior VTE?: No <Saira Nuñez PA-C - Last Filed: 03/03/23 08:29> VTE Risk Level:: Surgical - high <Saira Nuñez PA-C - Last Filed: 03/03/23 08:29> VTE Device Contraindication: N/A - Device Ordered <Saira Nuñez PA-C - Last Filed: 03/03/23 08:29> VTE Drug Contraindication: N/A - Med Ordered <Saira Nuñez PA-C - Last Filed: 03/03/23 08:29>
[2023-03-03] MEDS: oxyCODONE HCl Immed Release 5 MG TABLET 10 MG PO (09:12)
[2023-03-03] MEDS: Lactated Ringers 1,000 ML 100 ML IVCONT (09:13)
[2023-03-03] MEDS: Potassium Chloride Packet 20 MEQ PACKET 40 MEQ PO ×3 (09:13→18:25)
[2023-03-03] MEDS: hydroCHLOROthiazide 25 MG TABLET PO (09:13)
[2023-03-03] MEDS: Heparin Sodium,Porcine 5,000 UNIT/ML VIAL 5000 UNIT SUBCUT ×2 (09:13→18:25)
--- NOTE | 2023-03-03 13:55 | HO.POSTANES ---
Post Anesthesia Evaluation Post Anesthesia Evaluation Date of Service: 03/03/23 Vital Signs: Vital Signs Temp Pulse Resp BP Pulse Ox O2 Del Method O2 Flow Rate 03/03/23 07:20 98.0 F 84 18 125/62 92 Nasal Cannula 2.5 03/03/23 03:40 97 F 86 14 135/66 96 Nasal Cannula 2 Anesthesia: General Endotracheal-GETA Mental Status: Awake Pain Control: Satisfactory Nausea/Vomiting: None Hydration: Adequate Anesthesia-Related Issues: No Anes. Related Issues
--- NOTE | 2023-03-03 14:40 | PM.EVENT ---
Event Note Date of Service: 03/03/23 Event Note: seen on afternoon rounds says she is doing well denies flatus good pain control ambulated toleating clears abd soft incisions clean and dry await return of GI function family at bedside Time Spent With Patient Time: Total time managing care of this patient today ____ minutes.
[2023-03-03] MEDS: KCl 20 mEq in 5% Dex/0.9% Sod 20 MEQ/1,000 ML IV.SOLN 80 MEQ IVCONT (15:34)
[2023-03-03 16:00] VITALS: BP 155/70; PULSE 94; RESP 18; TEMP 36.6; O2SAT 92
--- NOTE | 2023-03-03 16:12 | PC.NURSE ---
Amaral cath removed at 0930. All DTV's complete.
--- NOTE | 2023-03-03 16:22 | MHC.CM.PN ---
PT REPORTS SHE LIVES WITH HER SHE IS INDEPENDENT WITH CARE AND WORKS SHE HAS NO DME AND NO SERVICES PT SAYS SHE HAS A HCP NAMING HER , COPY REQUESTED PCP: NICHELLE SESAY DCP: HOME NO SERVICES VIA PRIVATE TRANSPORT
--- NOTE | 2023-03-03 18:46 | PC.NURSE ---
pt lost IV access, multiple RNs attempted to place but were unsuccessful. informed, PO tylenol ordered to replace IV tylenol until IV access it obtained. informed of cont IV fluids
[2023-03-03 19:34] VITALS: BP 153/69; PULSE 90; RESP 18; TEMP 36.5; O2SAT 97
[2023-03-03] MEDS: Acetaminophen 325 MG TABLET 975 MG PO (19:57)
[2023-03-03] MEDS: 0.9 % Sodium Chloride Flush 3 ML SYRINGE IVFLUSH (22:24)
[2023-03-04] MEDS: Acetaminophen 1,000 MG/100 ML PIGGYBACK 400 MG IV ×2 (00:39→06:33)
[2023-03-04] MEDS: Heparin Sodium,Porcine 5,000 UNIT/ML VIAL 5000 UNIT SUBCUT ×3 (00:40→17:56)
[2023-03-04 03:01] VITALS: BP 129/70; PULSE 85; RESP 17; TEMP 36.4; O2SAT 93
[2023-03-04] MEDS: Levothyroxine Sodium 75 MCG TABLET PO (06:23)
[2023-03-04] MEDS: KCl 20 mEq in 5% Dex/0.9% Sod 20 MEQ/1,000 ML IV.SOLN 80 MEQ IVCONT ×2 (06:47→19:23)
[2023-03-04 08:00] VITALS: BP 145/68; PULSE 83; RESP 18; TEMP 36.1; O2SAT 96
--- NOTE | 2023-03-04 08:15 | PM.PNGS ---
Subjective Subjective Date of Service: 03/04/23 Patient reports: no new complaints, still having pain and no bowel movement Interval history: Coverage for Dr. Ahmadi Chart reviewed. Patient underwent hand assisted right hemicolectomy for neuroendocrine tumor 03/02/2023. Hemoglobin yesterday had drifted down to 10.7 from 13.8; BUYN also driftd suggesting possible dilution. Stat CBCD & BMP ordered at 0941 today are pending The patient denies any flatus or bowel movement and reports some bloating that she is not sure is worse than yesterday but she denies any nausea or vomiting. She is tolerating liquids. Physical Exam Vital Signs: Vital Signs: Last Vital Signs Temp 97.5 F 03/04/23 03:01 Pulse 85 03/04/23 03:01 Resp 17 03/04/23 03:01 BP 129/70 03/04/23 03:01 Pulse Ox 93 03/04/23 03:01 O2 Del Method Nasal Cannula 03/04/23 03:01 O2 Flow Rate 2 03/04/23 03:01 BMI result Body Mass Index 28.1 On exam she is nontoxic She is still on nasal cannula She is having no respiratory difficulty Abdomen is distended with some tympany but no peritoneal sign Objective Data Active Medications Acetaminophen (Acetaminophen 325 Mg Tablet) 975 mg PO Q6H PRN PRN Reason: Pain or Temp Last Admin: 03/03/23 19:57 Dose: 975 mg Documented By: KATELYNN Al Hydroxide/Mg Hydroxide (Magnesium Hydrox/Alum Hydrox 30 Ml Oral.Susp) 30 ml PO Q4H PRN PRN Reason: Heartburn/Nausea Heparin Sodium (Porcine) (Heparin Sodium,Porcine 5,000 Unit/Ml Vial) 5,000 unit SUBCUT Q8H [facility] Last Admin: 03/04/23 00:40 Dose: 5,000 unit Documented By: KATELYNN Hydrochlorothiazide (Hydrochlorothiazide 25 Mg Tablet) 25 mg PO DAILY [facility]; Protocol Last Admin: 03/03/23 09:13 Dose: 25 mg Documented By: AVTAR Acetaminophen (Ofirmev) 1,000 mg in 100 mls @ 400 mls/hr IV Q6H [facility] Last Infusion: 03/04/23 06:48 Dose: Infused Documented By: KATELYNN Potassium Chloride/Dextrose/Sod Cl (Kcl 20 Meq In 5% Dex/0.9% Sod) 20 meq in 1,000 mls @ 80 mls/hr IVCONT .[id number] [facility] Last Admin: 03/04/23 06:47 Dose: 80 mls/hr Documented By: KATELYNN Levothyroxine Sodium (Levothyroxine Sodium 75 Mcg Tablet) 75 mcg PO DAILY@0600 [facility] Last Admin: 03/04/23 06:23 Dose: 75 mcg Documented By: KATELYNN Melatonin (Melatonin 3 Mg Tablet) 6 mg PO BEDTIME PRN PRN Reason: Insomnia Morphine Sulfate (Morphine Sulfate 2 Mg/Ml Cartridge) 3 mg IVPUSH Q4H PRN; Protocol PRN Reason: Pain, Severe (Pain Scale 7-10) Ondansetron HCl (Ondansetron Hcl 4 Mg/2 Ml Vial) 4 mg IVPUSH Q8H PRN PRN Reason: Nausea and Vomiting Oxycodone HCl (Oxycodone Hcl Immed Release 5 Mg Tablet) 5 mg PO Q4H PRN PRN Reason: Pain, Moderate(Pain Scale 4-6) Last Admin: 03/03/23 05:19 Dose: 5 mg Documented By: SATISH Oxycodone HCl (Oxycodone Hcl Immed Release 5 Mg Tablet) 10 mg PO Q4H PRN PRN Reason: Pain, Severe (Pain Scale 7-10) Last Admin: 03/03/23 09:12 Dose: 10 mg Documented By: AVTAR Sodium Chloride (0.9 % Sodium Chloride Flush 3 Ml Syringe) 3 ml IVFLUSH [facility] Last Admin: 03/03/23 22:24 Dose: 3 ml Documented By: KATELYNN Labs 03/03/23 05:11 03/03/23 05:11 Procedures Date of Service Date of Service: 03/04/23 Progress Note: A&P Assessment and plan (1) S/P right colectomy: Status: Acute (2) Neuroendocrine neoplasm of gastrointestinal tract: Status: Acute (3) Hypertension: Status: Acute Plan Check stat CBC and BMP as ordered regarding the hemoglobin. I suspect this is dilutional but it was a significant drop. Patient denies any ongoing abdominal pain or worsening pain to suggest bleeding clinically and her pulse is running in the mid 80s. Await bowel function. Patient advised to go slowly with clears until she begins having flatus. She will contact the nurse if she becomes nauseated or vomits. Time Spent With Patient Time: Total time managing care of this patient today ____ minutes. Quality Stroke Does the patient have a stroke diagnosis?: No VTE Prior VTE?: No VTE Risk Level:: Surgical - high VTE Device Contraindication: N/A - Device Ordered VTE Drug Contraindication: N/A - Med Ordered
[2023-03-04 09:50] LABS: MANUAL DIFF FLAG NO
[2023-03-04 09:53] LABS: Basophils Percent Auto 0.5 % (0-2); Eosinophils Absolute Auto 0.3 X10*3/uL (0.0-0.4); Eosinophils Percent Auto 4.7 % (0-4); Hematocrit 31.5 % (37.0-47.0); Hemoglobin 10.8 g/dl (12.0-16.0); Imm Gran Abs Auto 0.03 X10*3/uL (0.00-0.03); Imm Gran Pct Auto 0.5 % (0.0-0.4); Lymphocytes Absolute Auto 1.2 X10*3/uL (1.2-4.9); Lymphocytes Percent Auto 17.9 % (20-40); Mean Corpuscular HGB Conc 34.3 g/dl (31.0-35.0); Mean Corpuscular Hemoglobin 32.8 pg (27.0-33.0); Mean Corpuscular Volume 95.7 fL (80.0-98.0); Mean Platelet Volume 9.3 fL (9.4-12.3); Monocytes Absolute Auto 0.5 X10*3/uL (0.1-1.2); Monocytes Percent Auto 8.1 % (2-11); Neutrophils Absolute Auto 4.5 x10*3/uL (2.0-8.3); Neutrophils Percent Auto 68.3 % (45-73); Platelet Count 218 X10*3/uL (160-400); Red Blood Count 3.29 X10*6/uL (4.20-5.50); Red Cell Distribution Width 12.9 % (11.0-16.0); White Blood Count 6.6 X10*3/uL (4.8-10.8)
[2023-03-04 10:07] LABS: Anion Gap 12 (12-20); Blood Urea Nitrogen 8 mg/dL (9-16); Calcium 8.6 mg/dL (8.4-10.2); Carbon Dioxide 29 mmol/L (22-29); Chloride 106 mmol/L (96-108); Creatinine Clr Calc Pharmacy 71.1; Estimated Glomerular Filt Rate > 60; Glucose Random 123 mg/dL (60-115); Sodium 143 mmol/L (135-145)
[2023-03-04] MEDS: hydroCHLOROthiazide 25 MG TABLET PO (10:36)
[2023-03-04 12:49] VITALS: PULSE 92; O2SAT 96
[2023-03-04 15:31] VITALS: BP 176/81; PULSE 82; RESP 18; O2SAT 95
[2023-03-04 19:22] VITALS: BP 164/76; PULSE 95; RESP 18; TEMP 36.2; O2SAT 96
[2023-03-05 00:58] VITALS: BP 156/82; PULSE 91; RESP 18; TEMP 36.5; O2SAT 94
[2023-03-05] MEDS: Acetaminophen 1,000 MG/100 ML PIGGYBACK 400 MG IV (06:08)
[2023-03-05] MEDS: Levothyroxine Sodium 75 MCG TABLET PO (06:11)
[2023-03-05] MEDS: KCl 20 mEq in 5% Dex/0.9% Sod 20 MEQ/1,000 ML IV.SOLN 80 MEQ IVCONT (06:34)
[2023-03-05 07:36] VITALS: BP 135/69; PULSE 82; RESP 16; TEMP 36.7; O2SAT 93
--- NOTE | 2023-03-05 08:07 | PM.PNGS ---
Subjective Subjective Date of Service: 03/05/23 Patient reports: no new complaints, feels better, still having pain and flatus Interval history: Coverage for Dr. Ahmadi Chart reviewed. Patient underwent hand assisted right hemicolectomy for neuroendocrine tumor 03/02/2023. Hemoglobin yesterday had drifted down to 10.7 from 13.8; BUYN also driftd suggesting possible dilution. Stat CBCD & BMP ordered at 0941 today are stable & suggestive of dilution The patient report flatus but denies bowel movement. She reports some bloating may be improving vs yesterday but she denies any nausea or vomiting. She is tolerating liquids. Physical Exam Vital Signs: Vital Signs: Last Vital Signs Temp 98.0 F 03/05/23 07:36 Pulse 82 03/05/23 07:36 Resp 16 03/05/23 07:36 BP 135/69 03/05/23 07:36 Pulse Ox 93 03/05/23 07:36 O2 Del Method Room Air 03/05/23 07:36 O2 Flow Rate 2 03/04/23 08:00 BMI result Body Mass Index 28.1 Nontoxic She is anicteric She is having no respiratory difficulty Abdominal dressings are clean, dry and intact with no significant drainage. Patient was reassured that the abdominal ecchymosis is normal and will resolve. There is no redness or evidence of cellulitis/infection Objective Data Active Medications Acetaminophen (Acetaminophen 325 Mg Tablet) 975 mg PO Q6H PRN PRN Reason: Pain or Temp Last Admin: 03/03/23 19:57 Dose: 975 mg Documented By: KATELYNN Al Hydroxide/Mg Hydroxide (Magnesium Hydrox/Alum Hydrox 30 Ml Oral.Susp) 30 ml PO Q4H PRN PRN Reason: Heartburn/Nausea Heparin Sodium (Porcine) (Heparin Sodium,Porcine 5,000 Unit/Ml Vial) 5,000 unit SUBCUT Q8H [facility] Last Admin: 03/05/23 00:44 Dose: Not Given Documented By: KATELYNN Non-Admin Reason: pt refused, pt ambulates Hydrochlorothiazide (Hydrochlorothiazide 25 Mg Tablet) 25 mg PO DAILY [facility]; Protocol Last Admin: 03/04/23 10:36 Dose: 25 mg Documented By: ARNOLD Acetaminophen (Ofirmev) 1,000 mg in 100 mls @ 400 mls/hr IV Q6H [facility] Last Infusion: 03/05/23 06:33 Dose: Infused Documented By: KATELYNN Potassium Chloride/Dextrose/Sod Cl (Kcl 20 Meq In 5% Dex/0.9% Sod) 20 meq in 1,000 mls @ 80 mls/hr IVCONT .[id number] [facility] Last Admin: 03/05/23 06:34 Dose: 80 mls/hr Documented By: KATELYNN Levothyroxine Sodium (Levothyroxine Sodium 75 Mcg Tablet) 75 mcg PO DAILY@0600 [facility] Last Admin: 03/05/23 06:11 Dose: 75 mcg Documented By: KATELYNN Melatonin (Melatonin 3 Mg Tablet) 6 mg PO BEDTIME PRN PRN Reason: Insomnia Morphine Sulfate (Morphine Sulfate 2 Mg/Ml Cartridge) 3 mg IVPUSH Q4H PRN; Protocol PRN Reason: Pain, Severe (Pain Scale 7-10) Ondansetron HCl (Ondansetron Hcl 4 Mg/2 Ml Vial) 4 mg IVPUSH Q8H PRN PRN Reason: Nausea and Vomiting Oxycodone HCl (Oxycodone Hcl Immed Release 5 Mg Tablet) 5 mg PO Q4H PRN PRN Reason: Pain, Moderate(Pain Scale 4-6) Last Admin: 03/03/23 05:19 Dose: 5 mg Documented By: SATISH Oxycodone HCl (Oxycodone Hcl Immed Release 5 Mg Tablet) 10 mg PO Q4H PRN PRN Reason: Pain, Severe (Pain Scale 7-10) Last Admin: 03/03/23 09:12 Dose: 10 mg Documented By: AVTAR Sodium Chloride (0.9 % Sodium Chloride Flush 3 Ml Syringe) 3 ml IVFLUSH QSHIFT [facility] Last Admin: 03/05/23 07:58 Dose: Not Given Documented By: RISHI Non-Admin Reason: IV Running Labs 03/04/23 09:41 03/04/23 09:41 Labs: Laboratory Results - last 24 hr 03/04/23 09:41 MCV 95.7 MCH 32.8 MCHC 34.3 RDW 12.9 Plt Count 218 MPV 9.3 L Immature Gran % (Auto) 0.5 H Neut % (Auto) 68.3 Lymph % (Auto) 17.9 L [place] % (Auto) 8.1 Eos % (Auto) 4.7 H Baso % (Auto) 0.5 Lymph # (Auto) 1.2 [place] # (Auto) 0.5 Eos # (Auto) 0.3 Baso # (Auto) 0.0 Abs Immat Gran (auto) 0.03 Absolute Neuts (auto) 4.5 Absolute Nucleated RBC 0.000 Nucleated RBC % (auto) 0.0 Anion Gap 12 Estim Creat Clear Calc 71.1 Estimated GFR > 60 Random Glucose 123 H Calcium 8.6 Procedures Date of Service Date of Service: 03/05/23 Progress Note: A&P Assessment and plan (1) S/P right colectomy: Status: Acute (2) 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 Time Spent With Patient Time: Total time managing care of this patient today ____ minutes. Quality Stroke Does the patient have a stroke diagnosis?: No VTE Prior VTE?: No VTE Risk Level:: Surgical - high VTE Device Contraindication: N/A - Device Ordered VTE Drug Contraindication: N/A - Med Ordered
[2023-03-05] MEDS: hydroCHLOROthiazide 25 MG TABLET PO (09:15)
[2023-03-05] MEDS: Heparin Sodium,Porcine 5,000 UNIT/ML VIAL 5000 UNIT SUBCUT ×2 (09:15→17:36)
[2023-03-05 15:21] VITALS: BP 148/74; PULSE 83; RESP 16; TEMP 36.3; O2SAT 96
[2023-03-05 19:37] VITALS: BP 142/87; PULSE 90; RESP 18; TEMP 36.4; O2SAT 97
[2023-03-05] MEDS: KCl 20 mEq in 5% Dex/0.9% Sod 20 MEQ/1,000 ML IV.SOLN 50 MEQ IVCONT (22:22)
[2023-03-06 04:00] VITALS: BP 156/74; PULSE 79; RESP 16; TEMP 37.5; O2SAT 92
[2023-03-06] MEDS: Levothyroxine Sodium 75 MCG TABLET PO (06:25)
[2023-03-06 07:02] VITALS: BP 148/72; PULSE 74; RESP 16; TEMP 36.8; O2SAT 93
--- NOTE | 2023-03-06 08:10 | PM.PNGS ---
Subjective Subjective Date of Service: 03/06/23 Interval history: feels well had BMs and flatus tolerating clears Physical Exam Vital Signs: Vital Signs: Last Vital Signs Temp 98.2 F 03/06/23 07:02 Pulse 74 03/06/23 07:02 Resp 16 03/06/23 07:02 BP 148/72 H 03/06/23 07:02 Pulse Ox 93 03/06/23 07:02 O2 Del Method Room Air 03/06/23 07:02 O2 Flow Rate 2 03/04/23 08:00 BMI result Body Mass Index 28.1 Const: General: comfortable and no acute distress Resp: Effort & Inspection: normal respiratory effort Cardio: Rate: regular rate GI: Other: incisions clean and dry Palpation (GI): Soft to palpation, not firm and no guarding Objective Data Active Medications Acetaminophen (Acetaminophen 325 Mg Tablet) 975 mg PO Q6H PRN PRN Reason: Pain or Temp Last Admin: 03/03/23 19:57 Dose: 975 mg Documented By: KATELYNN Al Hydroxide/Mg Hydroxide (Magnesium Hydrox/Alum Hydrox 30 Ml Oral.Susp) 30 ml PO Q4H PRN PRN Reason: Heartburn/Nausea Heparin Sodium (Porcine) (Heparin Sodium,Porcine 5,000 Unit/Ml Vial) 5,000 unit SUBCUT Q8H [facility] Last Admin: 03/06/23 02:12 Dose: Not Given Documented By: KATELYNN Non-Admin Reason: pt refused, pt ambulates frequently Hydrochlorothiazide (Hydrochlorothiazide 25 Mg Tablet) 25 mg PO DAILY [facility]; Protocol Last Admin: 03/05/23 09:15 Dose: 25 mg Documented By: RISHI Potassium Chloride/Dextrose/Sod Cl (Kcl 20 Meq In 5% Dex/0.9% Sod) 20 meq in 1,000 mls @ 50 mls/hr IVCONT .Q20H [facility] Last Admin: 03/05/23 22:22 Dose: 50 mls/hr Documented By: KATELYNN Levothyroxine Sodium (Levothyroxine Sodium 75 Mcg Tablet) 75 mcg PO DAILY@0600 [facility] Last Admin: 03/06/23 06:25 Dose: 75 mcg Documented By: KATELYNN Melatonin (Melatonin 3 Mg Tablet) 6 mg PO BEDTIME PRN PRN Reason: Insomnia Morphine Sulfate (Morphine Sulfate 2 Mg/Ml Cartridge) 3 mg IVPUSH Q4H PRN; Protocol PRN Reason: Pain, Severe (Pain Scale 7-10) Ondansetron HCl (Ondansetron Hcl 4 Mg/2 Ml Vial) 4 mg IVPUSH Q8H PRN PRN Reason: Nausea and Vomiting Oxycodone HCl (Oxycodone Hcl Immed Release 5 Mg Tablet) 5 mg PO Q4H PRN PRN Reason: Pain, Moderate(Pain Scale 4-6) Last Admin: 03/03/23 05:19 Dose: 5 mg Documented By: SATISH Oxycodone HCl (Oxycodone Hcl Immed Release 5 Mg Tablet) 10 mg PO Q4H PRN PRN Reason: Pain, Severe (Pain Scale 7-10) Last Admin: 03/03/23 09:12 Dose: 10 mg Documented By: AVTAR Sodium Chloride (0.9 % Sodium Chloride Flush 3 Ml Syringe) 3 ml IVFLUSH [facility] Last Admin: 03/06/23 00:12 Dose: Not Given Documented By: KATELYNN Non-Admin Reason: IV Running Labs 03/04/23 09:41 03/04/23 09:41 Procedures Date of Service Date of Service: 03/06/23 Progress Note: A&P Assessment and plan (1) S/P right colectomy: Status: Acute Assessment and Plan: doing well diet as tolerated abd remains soft good GI function she feels ready to be discharged will dc home today instructions reinforced path pending Time Spent With Patient Time: Total time managing care of this patient today ____ minutes. Quality Stroke Does the patient have a stroke diagnosis?: No VTE Prior VTE?: No VTE Risk Level:: Surgical - high VTE Device Contraindication: N/A - Device Ordered VTE Drug Contraindication: N/A - Med Ordered
--- NOTE | 2023-03-06 08:21 | MHC.CM.PN ---
PT WILL DC HOME TODAY WITH NO SERVICES FAMILY TO TRANSPORT
[2023-03-06] MEDS: hydroCHLOROthiazide 25 MG TABLET PO (09:43)
--- NOTE | 2023-03-07 08:35 | P.DS_ITS ---
DS: Providers Provider Date of Service: 03/06/23 Date of admission: 03/02/23 07:20 Date of discharge: 03/06/23 Primary care physician: Michael Valadez MD Attending physician on admission: Mg Ahmadi Attending physician on discharge: Mg Ahmadi DS: Diagnosis Discharge Diagnosis (1) S/P right colectomy: Status: Acute DS: Summary Hospital Course Hospital Course: HPI AT ADMISSION: The patient is a 67-year-old female who recently had a colonoscopy and was noted to have a lesion near the ileocecal valve. Biopsies had shown and neuroendocrine tumor. It was recommended to proceed with a hand assisted laparoscopic right colon resection and she now presents for the planned procedure. HOSPITAL COURSE: On 03/02/24, a hand assisted laparoscopic right colon resection was performed by Dr. Ahmadi without immediate complication. The patient tolerated the procedure well. She was admitted following for observation. Her home medications were resumed. She had an uncomplicated recovery course. On POD #1 she was doing well with good pain control and tolerating clear liquids. Her vincent was removed. She was ambulated. She began to pass flatus and she was advanced to full liquid diet. Her pain became adequately controlled on PO analgesics. Her abdomen remained benign with clean incisions. She began to move her bowels. She was advanced to a solid diet. She was reassessed and was tolerating the solid diet without nausea or vomiting and felt ready for discharge. She was discharged to home on 03/06/23 in stable condition. She is to follow up in the office in [address] Mic flores. Status at Discharge Functional status at discharge: independent ambulation Overall status at discharge: patient is progressing back to baseline Time Spent with Patient Time attestation: Total time managing care of this patient today ____ minutes. Discharge coordination time: Less than 30 minutes Quality: Safe Use of Opioids Does Pt have an Active Cancer Diagnosis on the Problem List?: Yes Opioid Measure Date for [facility] Report: 02/05/23 Opioid Measure Time for [facility] Report: 08:46 Quality: Stroke Does the patient have a stroke diagnosis?: No Physical Exam Vital Signs: Vital Signs: Last Vital Signs Temp 98.2 F 03/06/23 07:02 Pulse 74 03/06/23 07:02 Resp 16 03/06/23 07:02 BP 148/72 H 03/06/23 07:02 Pulse Ox 93 03/06/23 07:02 O2 Del Method Room Air 03/06/23 07:02 O2 Flow Rate 2 03/04/23 08:00 BMI result Body Mass Index 28.1 Const: General: comfortable, no acute distress and alert Orientation/consciousness: patient oriented x3 Resp: Effort & Inspection: normal respiratory effort Cardio: Rate: regular rate GI: Inspection: No distended and Yes incision (clean) Palpation (GI): Soft to palpation, no guarding and not rigid Neuro: General: patient oriented x3 DS: Data Data Completed and Pending Pending studies at discharge: Pending at discharge 03/02/23 08:38 Surgical [PTH] Routine Discharge Plan Discharge Anticipated Discharge Date/Time: 03/05/23 10:04 Patient Disposition: Home, Self-Care Discharge Diagnosis: s/p JOSE FRANCISCO right colectomy Referrals: Mg Ahmadi MD [Physician] - 2 Weeks Discharge Medications: New oxycodone-acetaminophen [Percocet] 5-325 mg tablet 1 tab PO Q4-6H PRN (Reason: pain) Qty: 30 0RF Rx Instructions: Partial Fill upon patient request. ibuprofen 600 mg tablet 600 mg PO Q6H PRN (Reason: pain) Qty: 30 0RF Continued hydrochlorothiazide 25 mg tablet 25 mg PO DAILY Qty: 90 8RF calcium carbonate-vitamin D3 [Calcium 500 + D] 500 mg-10 mcg (400 unit) Tablet 1 tab PO DAILY Multivitamin Women 50 Plus 8 mg iron-400 mcg-50 mcg Tablet 1 tab PO DAILY levothyroxine 75 mcg tablet 75 mcg PO DAILY@0600 Discharge Orders: Discharge Order (Routine); Ordered 03/06/23 Ordered By: Mg Ahmadi Diet: Advance to usual diet Activity on Discharge: No heavy lifting Stand Alone Forms: Patient Portal Discharge page Activity Restrictions/Additional Instructions: If the incision area is tender, you may apply an ice pack for short intervals (No more than 20 minutes on, followed by at least 20 minutes off). Do not apply heat. Do not use creams, lotions, or topical antibiotics. These can cause infection or allergic reaction. Ok to shower. You have carl closing your incision and these will be removed approximately 10-14 days after surgery. NO HEAVY LIFTING (>10lbs) or strenuous activity. Follow up in office. ([phone]) Call Your Doctor If: -Your temperature exceeds 101.5? F -You experience excessive pain or swelling -You have an unexpected reaction to medication -You have excessive bleeding -You experience continued vomiting/nausea -Your incision begins to separate -Your incision shows signs of infection such as increased redness, swelling, excessive pain, drainage (light blood or clear fluid is normal) or heat Care Plan Goals: Return to baseline health and resume normal activities following recovery period. Health Concerns: hypertension hypothyroidism neuroendocrine tumor Plan of Treatment: s/p JOSE FRANCISCO right colectomy Assessment: Doing well post op. Discharge Date/Time: 03/06/23 12:45
== END 2023-03-06 12:45 | disposition home or self-care (01) | DRG 680 ==
LOC: HO.SSSA 07:27 → HO.S3 10:43
PROVIDERS: Nurse Practitioner; Physician Assistant Surgical; Surgery; Admitting Provider Surgery; PCP Internal Medicine; Visit Provider Surgery
PROC: 0DTE0ZZ Resection of Large Intestine, Open Approach (ICD-10-PCS; principal; 2023-03-02 07:30)
DX: D3A.8 Other benign neuroendocrine tumors (principal); I10 Essential (primary) hypertension; Z87.891 Personal history of nicotine dependence; Z79.890 Hormone replacement therapy; Z79.899 Other long term (current) drug therapy
CPT/HCPCS: 36415; 80048; 84132; 85025; 85027; 86850; 86900; 86901; 88309; 88329; 88360; 93005; C1758; J0131; J1643; J2270

== ENCOUNTER → 2023-03-02 07:20 | Outpatient (BNV) | payer OTHER, SELFPAY | PROVIDERS: Admitting Provider Surgery; PCP Internal Medicine; Visit Provider Surgery | DX: D3A.021 Benign carcinoid tumor of the cecum (principal) | CPT/HCPCS: 44204; 99024; 99499 ==

== ENCOUNTER 2023-03-16 10:19 | Outpatient (AMB) | payer OTHER, SELFPAY ==
--- NOTE | 2023-03-16 10:22 | A.OFFVIS_ITS ---
Intake Vital Signs 03/16/23 10:32 Weight 142 lb Intake Visit Reasons: S/P Rt. colon resection Intake Note: This patient presents for a post-op assessment status post right colon resection. Patient c/o; reports no complaints at this time. 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 colon resection HPI Details She underwent HALS right colon resection last 03/02/2023 for a neuroendocrine tumor of the right colon. She tolerated procedure well. She was discharge on postop day 4. She says she is doing well at home. She has good oral intake. She denies significant pain. [facility] Medical History GERD (gastroesophageal reflux disease) Restless leg Leslie's disease Vitiligo Neuroendocrine neoplasm of gastrointestinal tract Hypothyroidism Hypertension Surgical History Hx of colonoscopy History of carpal tunnel release History of spinal surgery Family History Father Melanoma Mother Alive and well Paternal Grandmother Uterine cancer Sister Pheochromocytoma Social History Household Members: Spouse Housing: House Are you a primary childcare center administrator to a significant other at home: No Do you presently have visiting nurse or other home services: No Alcohol intake: current Alcohol intake frequency: a few times a month Patient Tobacco Use Status: Former Tobacco user Tobacco use type: Cigarette e-Cigarette/Vaping Use: Never Used Second Hand Smoke Exposure: No service: No Current occupational status: employed Cognitive needs: No Hearing needs: No Vision needs: Yes Review of Systems Const Denies chills and Denies fever(s) Card Denies chest pain and Denies dyspnea Resp Denies dyspnea GI Denies constipation Physical Exam Const General: comfortable and no acute distress Resp Effort & Inspection: normal respiratory effort Cardio Rate: regular rate GI Other: All incisions are healing well, no evidence of infection although there is some erythema on 1 area of the midline incision at the area of the umbilicus Palpation (GI): Soft to palpation, not firm and no guarding Assessment & Plan Assessment & Plan (1) Neuroendocrine neoplasm of gastrointestinal tract: Code(s): D3A.8 - Other benign neuroendocrine tumors Plan: Status post right colon resection. She is doing very well postoperatively. All incisions are well healed. Her path report shows a well-differentiated neuroendocrine tumor, with 3/14 lymph nodes positive. She therefore cyst T3 N1 tumor She has a follow-up with Dr. Cardona to discuss neoadjuvant treatment I advised her to avoid lifting more than 20 lb for at least 3-4 weeks. I will see her in the office next month to see how she is doing before she is cleared to return to work. Coding Level of Care Code Global (90557) Diagnoses Neuroendocrine neoplasm of gastrointestinal tract D3A.8
== END 2023-03-16 10:51 | disposition home or self-care (01) ==
PROVIDERS: PCP Internal Medicine; Visit Provider Surgery
DX: D3A.8 Other benign neuroendocrine tumors (principal)
CPT/HCPCS: 99024

== ENCOUNTER → 2023-03-16 10:19 | Outpatient (BNVA) | payer OTHER, SELFPAY | PROVIDERS: PCP Internal Medicine; Visit Provider Surgery ==

== ENCOUNTER 2023-03-22 10:49 | Outpatient (AMB) | payer OTHER, SELFPAY ==
[2023-03-22 10:52] VITALS: BP 136/76; PULSE 85; O2SAT 98; BMI 25.3
--- NOTE | 2023-03-22 10:52 | A.OFFPC_ITS ---
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 Accompanied by: Self / Same As Patient Allergies No Known Allergies Allergy (Mild, Verified 03/22/23 10:52) N/A Medication List - Last Reconciled 03/22/23 by Michael Valadez MD calcium carbonate-vitamin D3 500 mg-10 mcg (400 unit) (Calcium 500 + D) 1 tab PO DAILY hydrochlorothiazide 25 mg PO DAILY ibuprofen 600 mg PO Q6H PRN levothyroxine 75 mcg PO DAILY@0600 [id number] K-lut 8 mg iron-400 mcg-50 mcg (Multivitamin Women 50 Plus) 1 tab PO DAILY Tobacco use date assessed: 09/28/22 Fall risk assessment: 1 Fall in past year Last assessed Fall Risk: 03/22/23 Dental Screening Dental Screen Date: 03/22/23 Did you have a dental visit in the last 12 months?: Yes Did you have a dental problem in the last 6 months where you did not have access to dental care?: No Was dental information given to patient?: Patient has dentist HPI tcm f/u HPI Details s/p right colecto; htn and hypothyroidism; going to oncologymy for cancer with 3/15 positive nodes PFSH Medical History GERD (gastroesophageal reflux disease) Restless leg Leslie's disease Vitiligo Neuroendocrine neoplasm of gastrointestinal tract Hypothyroidism Hypertension Surgical History Hx of colonoscopy History of carpal tunnel release History of spinal surgery Family History Father Melanoma Mother Alive and well Paternal Grandmother Uterine cancer Sister Pheochromocytoma Social History Household Members: Spouse Housing: House Are you a primary geriatric care manager to a significant other at home: No Do you presently have visiting nurse or other home services: No Alcohol intake: current Alcohol intake frequency: a few times a month Patient Tobacco Use Status: Former Tobacco user Tobacco use type: Cigarette e-Cigarette/Vaping Use: Never Used Second Hand Smoke Exposure: No service: No Current occupational status: employed Cognitive needs: No Hearing needs: No Vision needs: Yes Questionnaire PHQ-9 Over the last 2 weeks, how often have you been bothered by any of the following problems? 1. Little interest or pleasure in doing things: not at all 2. Feeling down, depressed, or hopeless: not at all 3. Trouble falling or staying asleep, or sleeping too much: not at all 4. Feeling tired or having little energy: not at all 5. Poor appetite or overeating: not at all 6. Feeling bad about yourself - or that you are a failure or have let yourself or your family down: not at all 7. Trouble concentrating on things, such as reading the newspaper or watching television: not at all 8. Moving or speaking so slowly that other people could have noticed. Or the opposite - being so fidgety or restless that you have been moving around a lot more than usual: not at all 9. Thoughts that you would be better off or of hurting yourself in some way: not at all Total score: 0 Depression Screening Interpretation: Negative Depression Screening Done: Yes 53463 - PHQ-9 Billing: Yes Source: Developed by Drs. Tom Lehman, Archana Santos, Bhavin Payne and colleagues, with an educational clayton from [employer]. Thrive Questionnaire Date Thrive assessed: 03/03/23 AUDIT C Alcohol Use Questionnaire (AUDIT-C) 1. How often do you have a drink containing alcohol?: 2-4 times a month 2. How many drinks containing alcohol do you have on a typical day when you are drinking?: 1 or 2 Total Score: 2 Score Reviewed/Action Taken: Yes LIGIA-7 AMB Questionnaire LIGIA-7 Date LIGIA - 7 assessed: 09/28/22 Source: Developed by Drs. Tom Lehman, Archana Santos, Bhavin Payne and colleagues, with an educational clayton from [employer]. Review of Systems Const Denies chills, Denies fatigue, Denies headache(s) and Denies weight loss Eyes Denies change in vision, Denies diplopia and Denies eye pain ENT Denies vertigo, Denies dizziness, Denies headache(s) and Denies nasal discharge Card Denies chest pain, Denies rapid heart rate and Denies dyspnea on exertion Resp Denies chest congestion, Denies cough, Denies pain with cough and Denies dyspnea on exertion GI Denies abdominal pain, Denies hematochezia and Denies change in bowel habits Musc Denies myalgias, Denies arthralgias and Denies joint swelling Skin/Breast Denies lesions and Denies unusual bruising Neuro Denies vertigo, Denies dizziness, Denies headache(s) and Denies focal weakness Endo Denies fatigue Physical exam (Primary Care) Vital Signs: Last Vital Signs Pulse 85 03/22/23 10:52 BP 136/76 03/22/23 10:52 Pulse Ox 98 03/22/23 10:52 Oxygen Delivery Method Room Air 03/22/23 10:52 BMI result Body Mass Index 25.3 Tobacco/Smoking Status: Tobacco use Status Tobacco use date assessed 09/28/22 03/22/23 10:53 Patient Tobacco Use Status Former Tobacco user 03/22/23 10:53 Tobacco use type Cigarette 03/22/23 10:53 e-Cigarette/Vaping Use Never Used 03/22/23 10:53 PHQ-9: PHQ-9 Score PHQ-9: Total score 0 03/22/23 11:17 Depression Screening Interpretation: Negative Thrive Assessment: Date of Thrive Assessment Date Thrive assessed 03/03/23 03/22/23 10:53 Const General: cooperative, healthy appearing and no acute distress Orientation/consciousness: oriented to person, oriented to place and oriented to time [facility] Head: Yes normal to inspection, Yes normocephalic and Yes atraumatic Mouth: Normal oral and palatal mucosa present and tongue normal Throat: Yes posterior oropharynx normal and Yes uvula midline Eyes General: appearance normal, both eyes and all related structures Neck Neck: Yes normal visual inspection, Yes full ROM and Yes no lymphadenopathy Thyroid: Thyroid normal Carotids: normal carotid upstroke Chest Chest palpation & inspection: normal inspection of the chest Resp Effort & Inspection: normal respiratory effort and able to speak in complete sentences Auscultation: clear to auscultation bilaterally Cardio Jugular venous distension: no JVD Palpation: normal PMI Rate: regular rate Rhythm: regular rhythm Heart sounds: S1 normal heart sound present and S2 normal heart sound present GI Inspection: Yes normal to inspection Palpation (GI): Soft to palpation and No hepatosplenomegaly present Auscultation: normal bowel sounds General: Yes no CVA tenderness Back/Spine/Pelvis Back: no CVA tenderness Skin General skin exam: no rashes or lesions noted Neuro General: oriented to person, oriented to place and oriented to time Extrem General: Yes normal to inspection and Yes full ROM Office Procedures Flu Questionnaire Does the patient have a severe egg allergy?: No Does the patient have severe life threatening allergies?: No Does the patient have a fever or illness today?: No Has the patient ever had Guillain-[place] Syndrome?: No Has the patient ever had any past reaction to a flu shot?: No Immunizations flu vacc [id number] 6mos up(PF) 60 mcg(15 mcgx4)/0.5 mL IM syringe Performing Provider: Michael Valadez MD Performing Location: [facility] Administered by: ARMAND Marcial on 03/22/23 11:17 Dose Route Admin Location Dispensed Lot Number Expiration Date NDC Burrito Maker 0.5 mL IM Left Deltoid 0.5 mL [id number] 11/05/23 24531-297-44 [employer] VIS Given Date VIS Provided VIS Publication Date 03/22/23 Single Vaccine 20 Eligibility Eligibility Date Funding Source Not [facility] Eligible 03/22/23 Private Assessment and Plan Assessment & Plan (1) Hypertension: Code(s): I10 - Essential (primary) hypertension Plan: stable; same rx (2) Hypothyroidism: Code(s): E03.9 - Hypothyroidism, unspecified Plan: smae rx (3) Colon cancer: Code(s): C18.9 - Malignant neoplasm of colon, unspecified Plan: as per oncology Orders: Orders Influenza [id number] Immunization Today Z23 - Encounter for immunization Coding Level of Care Code Est Pt Level 4 (08855) Diagnoses Hypertension I10 Hypothyroidism E03.9 Colon cancer C18.9
== END 2023-03-22 11:13 | disposition home or self-care (01) ==
PROVIDERS: PCP Internal Medicine; Visit Provider Internal Medicine
DX: I10 Essential (primary) hypertension (principal); E03.9 Hypothyroidism, unspecified; C18.9 Malignant neoplasm of colon, unspecified; Z23 Encounter for immunization
CPT/HCPCS: 90471; 90686; 99214

== ENCOUNTER → 2023-03-24 15:24 | Outpatient (BNV) | payer OTHER, SELFPAY | PROVIDERS: PCP Internal Medicine; Referring Provider Internal Medicine; Visit Provider Internal Medicine | DX: D3A.8 Other benign neuroendocrine tumors (principal) | CPT/HCPCS: 99214 ==

== ENCOUNTER 2023-04-13 09:02 | Outpatient (AMB) | payer OTHER, SELFPAY ==
--- NOTE | 2023-04-13 09:10 | A.OFFVIS_ITS ---
Intake Vital Signs 04/13/23 09:11 Height 5 ft 3 in Weight 146 lb BMI 25.9 BP 140/80 H Blood Pressure Location Lt brachial Position Sitting Intake Visit Reasons: S/P Rt. colon resection, 1 month follow up Intake Note: Pt states, I'm doing fine. No problems, no pain. 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 colon resection, 1 month follow up HPI Details She is here for a postop visit after right colon resection for a neuroendocrine tumor. She continues to do well. She denies any significant complaints. She has good oral intake and good GI functions. [facility] Medical History GERD (gastroesophageal reflux disease) Restless leg Leslie's disease Vitiligo Neuroendocrine neoplasm of gastrointestinal tract Hypothyroidism Hypertension Surgical History Hx of colonoscopy History of carpal tunnel release History of spinal surgery Family History Father Melanoma Mother Alive and well Paternal Grandmother Uterine cancer Sister Pheochromocytoma Social History Household Members: Spouse Housing: House Are you a primary healthcare associate to a significant other at home: No Do you presently have visiting nurse or other home services: No Alcohol intake: current Alcohol intake frequency: a few times a month Patient Tobacco Use Status: Former Tobacco user Tobacco use type: Cigarette e-Cigarette/Vaping Use: Never Used Second Hand Smoke Exposure: No service: No Current occupational status: employed Cognitive needs: No Hearing needs: No Vision needs: Yes Review of Systems Const Denies chills and Denies fever(s) Card Denies chest pain, Denies dyspnea and Denies dyspnea on exertion Resp Denies cough, Denies dyspnea and Denies dyspnea on exertion GI Denies hematochezia and Denies change in bowel habits Denies hematuria Musc Denies back pain and Denies limited range of motion Neuro Denies focal weakness and Denies convulsions Psych Denies depression and Denies mood swings Physical Exam Vital Signs: Last Vital Signs BP 140/80 H 04/13/23 09:11 BMI result Body Mass Index 25.9 Const General: comfortable and no acute distress Resp Effort & Inspection: normal respiratory effort GI Other: Incisions well healed, no hernias Palpation (GI): Soft to palpation, not firm and nontender Assessment & Plan Assessment & Plan (1) Neuroendocrine neoplasm of gastrointestinal tract: Code(s): D3A.8 - Other benign neuroendocrine tumors Plan: Status post right colon resection. She continues to do very well. She has been following Dr. Mejia. No adjuvant treatment is being planned. She will be undergoing surveillance with triphasic CT scan every 6 months. I will see her in the office in 6 months therefore. She is cleared to return to work. Coding Level of Care Code Global (40611) Diagnoses Neuroendocrine neoplasm of gastrointestinal tract D3A.8
[2023-04-13 09:11] VITALS: BP 140/80; BMI 25.9
== END 2023-04-13 09:43 | disposition home or self-care (01) ==
PROVIDERS: PCP Internal Medicine; Visit Provider Surgery
DX: D3A.8 Other benign neuroendocrine tumors (principal)
CPT/HCPCS: 99024

== ENCOUNTER → 2023-04-13 09:02 | Outpatient (BNVA) | payer OTHER, SELFPAY | PROVIDERS: PCP Internal Medicine; Visit Provider Surgery ==

== ENCOUNTER → 2023-06-20 13:20 | Outpatient (BNV) | payer OTHER, SELFPAY | PROVIDERS: PCP Internal Medicine; Visit Provider Internal Medicine | DX: D3A.8 Other benign neuroendocrine tumors (principal) | CPT/HCPCS: 99213; 99214 ==

== ENCOUNTER 2023-06-27 13:38 | Outpatient (AMB) | payer OTHER, SELFPAY ==
[2023-06-27 13:40] VITALS: BP 140/72; PULSE 72; O2SAT 96; BMI 26.2
--- NOTE | 2023-06-27 13:40 | A.OFFPC_ITS ---
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 Shaping Machine Operator: Not Required per policy Accompanied by: Self / Same As Patient Allergies No Known Allergies Allergy (Mild, Verified 06/27/23 13:41) N/A Medication List - Last Reconciled 06/28/23 by Michael Valadez MD calcium carbonate-vitamin D3 500 mg-10 mcg (400 unit) (Calcium 500 + D) 1 tab PO DAILY hydrochlorothiazide 25 mg PO DAILY ibuprofen 600 mg PO Q6H PRN levothyroxine 75 mcg PO DAILY@0600 qcznuteg-yxi-lzlx-FA-vit K-lut 8 mg iron-400 mcg-50 mcg (Multivitamin Women 50 Plus) 1 tab PO DAILY Tobacco use date assessed: 06/27/23 Fall risk assessment: No Falls in past year Last assessed Fall Risk: 06/27/23 Dental Screening Dental Screen Date: 06/27/23 Did you have a dental visit in the last 12 months?: Yes Did you have a dental problem in the last 6 months where you did not have access to dental care?: No Was dental information given to patient?: Patient has dentist HPI Annual PE -3mth f/u HPI Details HTN hypothyroidism and colon cancer; sees oncology; feels well [facility] Medical History (Updated 06/28/23 @ 08:35 by Michael Valadez MD) Colon cancer GERD (gastroesophageal reflux disease) Restless leg Leslie's disease Vitiligo Neuroendocrine neoplasm of gastrointestinal tract Hypothyroidism Hypertension Surgical History Hx of colonoscopy History of carpal tunnel release History of spinal surgery Family History Father Melanoma Mother Alive and well Paternal Grandmother Uterine cancer Sister Pheochromocytoma Social History Household Members: Spouse Housing: House Are you a primary healthcare administrative assistant to a significant other at home: No Do you presently have visiting nurse or other home services: No Alcohol intake: current Alcohol intake frequency: a few times a month Patient Tobacco Use Status: Former Tobacco user Tobacco use type: Cigarette e-Cigarette/Vaping Use: Never Used Second Hand Smoke Exposure: No service: No Current occupational status: employed Cognitive needs: No Hearing needs: No Vision needs: Yes Questionnaire PHQ-9 Over the last 2 weeks, how often have you been bothered by any of the following problems? 1. Little interest or pleasure in doing things: not at all 2. Feeling down, depressed, or hopeless: not at all 3. Trouble falling or staying asleep, or sleeping too much: not at all 4. Feeling tired or having little energy: not at all 5. Poor appetite or overeating: not at all 6. Feeling bad about yourself - or that you are a failure or have let yourself or your family down: not at all 7. Trouble concentrating on things, such as reading the newspaper or watching television: not at all 8. Moving or speaking so slowly that other people could have noticed. Or the opposite - being so fidgety or restless that you have been moving around a lot more than usual: not at all 9. Thoughts that you would be better off or of hurting yourself in some way: not at all Total score: 0 Depression Screening Interpretation: Negative Depression Screening Done: Yes 81392 - PHQ-9 Billing: Yes Source: Developed by Drs. Tom Lehman, Archana Santos, Bhavin Payne and colleagues, with an educational clayton from [employer]. Thrive Questionnaire Date Thrive assessed: 06/27/23 I am a: Patient What is your living situation today?: I have a steady place to live Within the past 12 months, did the food you bought not last and you didn't have the money to get more?: Never true Within the past 12 months, did you worry whether your food would run out before you got money to buy more?: Never true Do you have trouble paying for medicines?: No Do you have trouble getting transportation to medical appointments?: No Do you have trouble paying your heating and electricity bill?: No Do you have trouble taking care of your child, family member or friend?: No Do you have trouble with day-to-day activities such as bathing, preparing meals, shopping, managing finances, etc.?: No Are you currently unemployed and looking for a job?: No Are you interested in more education?: No Please select the resources that you would like help with: None THRIVE Score: 0 AUDIT C Alcohol Use Questionnaire (AUDIT-C) 1. How often do you have a drink containing alcohol?: 2-4 times a month 2. How many drinks containing alcohol do you have on a typical day when you are drinking?: 1 or 2 Total Score: 2 Score Reviewed/Action Taken: Yes LIGIA-7 AMB Questionnaire LIGAI-7 Date LIGIA - 7 assessed: 06/27/23 Feeling nervous, anxious, or on edge: 0 = Not at all Not being able to stop or control worryin = Not at all Worrying too much about different things: 0 = Not at all Trouble relaxin = Not at all Being so restless that it is hard to sit still: 0 = Not at all Becoming easily annoyed or irritable: 0 = Not at all Feeling afraid as if something awful might happen: 0 = Not at all Total LIGIA-7 score (0-4 normal; 5-9 mild; 10-14 moderate; 15-21 severe): 0 Source: Developed by Drs. Tom Lehman, Archana Santos, Bhavin Payne and colleagues, with an educational clayton from [employer]. LIGIA-7 Assessment Billing LIGIA-7 Assessment Tool: LIGIA-7 Assessment 61347 Review of Systems Const Denies chills, Denies fatigue, Denies headache(s) and Denies weight loss Eyes Denies change in vision, Denies diplopia and Denies eye pain ENT Denies vertigo, Denies dizziness, Denies headache(s) and Denies nasal discharge Card Denies chest pain, Denies rapid heart rate and Denies dyspnea on exertion Resp Denies chest congestion, Denies cough, Denies pain with cough and Denies dyspnea on exertion GI Denies abdominal pain, Denies hematochezia and Denies change in bowel habits Musc Denies myalgias, Denies arthralgias and Denies joint swelling Skin/Breast Denies lesions and Denies unusual bruising Neuro Denies vertigo, Denies dizziness, Denies headache(s) and Denies focal weakness Endo Denies fatigue Physical exam (Primary Care) Vital Signs: Last Vital Signs Pulse 72 02/20/24 13:40 BP 140/72 H 06/27/23 13:40 Pulse Ox 96 06/27/23 13:40 Oxygen Delivery Method Room Air 06/27/23 13:40 BMI result Body Mass Index 26.2 Tobacco/Smoking Status: Tobacco use Status Tobacco use date assessed 06/27/23 06/27/23 13:42 Patient Tobacco Use Status Former Tobacco user 06/27/23 13:42 Tobacco use type Cigarette 06/27/23 13:42 e-Cigarette/Vaping Use Never Used 06/27/23 13:42 PHQ-9: PHQ-9 Score PHQ-9: Total score 0 06/27/23 13:42 Depression Screening Interpretation: Negative Thrive Assessment: Date of Thrive Assessment Date Thrive assessed 06/27/23 06/27/23 13:42 Const General: cooperative, healthy appearing and no acute distress Orientation/consciousness: oriented to person, oriented to place and oriented to time HENMT Head: Yes normal to inspection, Yes normocephalic and Yes atraumatic Mouth: Normal oral and palatal mucosa present and tongue normal Throat: Yes posterior oropharynx normal and Yes uvula midline Eyes General: appearance normal, both eyes and all related structures Neck Neck: Yes normal visual inspection, Yes full ROM and Yes no lymphadenopathy Thyroid: Thyroid normal Carotids: normal carotid upstroke Chest Chest palpation & inspection: normal inspection of the chest Resp Effort & Inspection: normal respiratory effort and able to speak in complete sentences Auscultation: clear to auscultation bilaterally Cardio Jugular venous distension: no JVD Palpation: normal PMI Rate: regular rate Rhythm: regular rhythm Heart sounds: S1 normal heart sound present and S2 normal heart sound present GI Inspection: Yes normal to inspection Palpation (GI): Soft to palpation and No hepatosplenomegaly present Auscultation: normal bowel sounds General: Yes no CVA tenderness Back/Spine/Pelvis Back: no CVA tenderness Skin General skin exam: no rashes or lesions noted Neuro General: oriented to person, oriented to place and oriented to time Extrem General: Yes normal to inspection and Yes full ROM Assessment and Plan Assessment & Plan (1) Physical exam: Code(s): Z00.00 - Encounter for general adult medical examination without abnormal findings Plan: stable (2) Hypothyroidism: Code(s): E03.9 - Hypothyroidism, unspecified Plan: stable; same rx (3) Hypertension: Code(s): I10 - Essential (primary) hypertension Plan: stable; same rx (4) Colon cancer: Code(s): C18.9 - Malignant neoplasm of colon, unspecified Plan: stable as per onc Orders: Orders Thyroid Stimulating Hormone 06/27/23 E03.9 - Hypothyroidism, unspecified Coding Level of Care Code Est Pt Prev Care >65y(80427) Diagnoses Physical exam Z00.00 Hypothyroidism E03.9 Hypertension I10 Colon cancer C18.9 Additional Codes LIGIA-7 Assessment Billing - LIGIA-7 Assessment Tool: LIGIA-7 Assessment 06445 ([id number])
== END 2023-06-27 14:00 | disposition home or self-care (01) ==
PROVIDERS: PCP Internal Medicine; Visit Provider Internal Medicine
DX: Z00.00 Encounter for general adult medical examination without abnormal findings (principal); E03.9 Hypothyroidism, unspecified; I10 Essential (primary) hypertension; C18.9 Malignant neoplasm of colon, unspecified
CPT/HCPCS: 99397

== ENCOUNTER 2023-06-27 14:03 | Outpatient (REF) | payer OTHER, SELFPAY ==
[2023-06-27 15:18] LABS: Thyroid Stimulating Hormone 2.44 uIU/mL (0.32-4.0)
== END 2023-06-27 14:04 | disposition home or self-care (01) ==
LOC: HO.LAB 14:03
PROVIDERS: Visit Provider Internal Medicine
DX: E03.9 Hypothyroidism, unspecified (principal)
CPT/HCPCS: 36415; 84443

== ENCOUNTER 2023-07-21 15:15 | Outpatient (REF) | payer OTHER, SELFPAY ==
[2023-07-21 18:32] LABS: Blood Urea Nitrogen 19 mg/dL (9-16); Estimated Glomerular Filt Rate > 60
== END 2023-07-21 15:16 | disposition home or self-care (01) ==
LOC: HO.LAB 15:15
PROVIDERS: Visit Provider Internal Medicine
DX: C18.9 Malignant neoplasm of colon, unspecified (principal)
CPT/HCPCS: 36415; 82565; 84520

== ENCOUNTER 2023-08-01 15:32 | Outpatient (REF) | payer OTHER, SELFPAY ==
--- NOTE | ~2023-08-01 | CT_ITS ---
EXAMINATION: CT ABDOMEN AND PELVIS WITH CONTRAST CLINICAL INFORMATION: Surveillance for neuroendocrine tumor COMPARISON: 02/20/2023 TECHNIQUE: Multidetector volumetric images were obtained from the superior aspect of the liver through the pubic symphysis following administration 85 mL of Omnipaque 350 intravenous contrast. Sagittal and coronal reformatted images were obtained on the technologist's workstation. Oral contrast: No This CT examination was performed using dose optimization techniques as appropriate, variously including the following: *Automated exposure control *Adjustment of mA and/or kV according to patient size (this includes techniques or standardized protocols for targeted exams where dose is matched to indication/reason for exam; i.e. extremities or head) *Use of iterative reconstruction technique DLP: 330 mGy-cm FINDINGS: LUNG BASES: Unremarkable. ABDOMINAL AND PELVIC WALL: Unremarkable. LIVER AND BILIARY TREE: Subcentimeter hepatic hypoattenuating lesions in the left hepatic lobe are unchanged. GALLBLADDER: Gallbladder is unremarkable. PANCREAS: Unremarkable. SPLEEN: Unremarkable. ADRENAL GLANDS: Unremarkable. KIDNEYS AND URETERS: Unremarkable. GASTROINTESTINAL TRACT: Postoperative changes related to right hemicolectomy. VASCULAR: Unremarkable. LYMPH NODES/PERITONEUM: No lymphadenopathy. FREE FLUID: None. BLADDER: Unremarkable. PELVIC VISCERA: Unremarkable. OSSEOUS STRUCTURES: Posterior spinal fusion hardware. CT/CT abdomen pelvis w IV con IMPRESSION: No CT findings of abdominopelvic metastatic disease.
[2023-08-01] MEDS: iohexoL 350 MG/ML 100 ML INFUS..BTL IV (15:53)
== END 2023-08-01 15:33 | disposition home or self-care (01) ==
LOC: HO.CT 15:32
PROVIDERS: PCP Internal Medicine; Visit Provider Internal Medicine
DX: D3A.8 Other benign neuroendocrine tumors (principal)
CPT/HCPCS: 74177; Q9967

== ENCOUNTER 2023-08-05 09:39 | Outpatient (REF) | payer OTHER, SELFPAY ==
--- NOTE | ~2023-08-05 | MM_ITS ---
EXAMINATION: MM SCREENING DIGITAL BREAST TOMOSYNTHESIS, BILATERAL CLINICAL INFORMATION: Screening. Asymptomatic. COMPARISON: Mammography: This study is compared with prior exams dating back to 2019. TECHNIQUE: Digital breast tomosynthesis is performed in both the craniocaudal and mediolateral oblique views along with computer-aided detection (CAD). Synthesized 2D images are generated from the tomosynthesis. FINDINGS: There are scattered areas of fibroglandular density (ACR BI-RADS breast composition Category b). There are no significant masses, abnormal calcifications, or other abnormalities. There are bilateral benign calcifications. MM/MM tomosynthesis screening BI IMPRESSION: No mammographic evidence of malignancy. ASSESSMENT: BI-RADS BI-RADS 2 - Benign Findings RECOMMENDATION: Routine annual mammography screening. 1 year F/U This examination should not preclude the clinical evaluation of a suspicious palpable abnormality. This patient's information was entered into a reminder system with a target due date for their next mammogram.
== END 2023-08-05 09:40 | disposition home or self-care (01) ==
LOC: HO.MAMMO 09:39
PROVIDERS: PCP Internal Medicine; Visit Provider Internal Medicine
DX: Z12.31 Encounter for screening mammogram for malignant neoplasm of breast (principal)
CPT/HCPCS: 77063; 77067

== ENCOUNTER → 2023-08-05 10:00 | Outpatient (BNV) | payer OTHER, SELFPAY | PROVIDERS: PCP Internal Medicine; Visit Provider Radiology Diagnostic Radiology | DX: Z12.31 Encounter for screening mammogram for malignant neoplasm of breast (principal) | CPT/HCPCS: 77063; 77067 ==

== ENCOUNTER 2023-10-16 15:12 | Outpatient (AMB) | payer OTHER, SELFPAY ==
[2023-10-16 15:17] VITALS: BMI 26.9
--- NOTE | 2023-10-16 15:17 | A.OFFVIS_ITS ---
Vital Signs 10/16/23 15:17 Height 5 ft 3 in Weight 152 lb BMI 26.9 Intake Visit Reasons: 6 mo f/u Intake Note: This patient presents for a six month follow-up status post colon resection. Patient c/o; reports no breast complaints at this time. 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 She had undergone right colon resection last February, She says he feels well overall. She denies any GI complaints. She denies any abdominal pain. She had a surveillance CT scan last July, and this did not reveal any suggestion of a recurrent disease or metastatic disease. [facility] Medical History Colon cancer GERD (gastroesophageal reflux disease) Restless leg Leslie's disease Vitiligo Neuroendocrine neoplasm of gastrointestinal tract Hypothyroidism Hypertension Surgical History Hx of colonoscopy History of carpal tunnel release History of spinal surgery Family History Father Melanoma Mother Alive and well Paternal Grandmother Uterine cancer Sister Pheochromocytoma Social History Household Members: Spouse Housing: House Are you a primary child care development specialist to a significant other at home: No Do you presently have visiting nurse or other home services: No Alcohol intake: current Alcohol intake frequency: a few times a month Patient Tobacco Use Status: Former Tobacco user Tobacco use type: Cigarette e-Cigarette/Vaping Use: Never Used Second Hand Smoke Exposure: No service: No Current occupational status: employed Cognitive needs: No Hearing needs: No Vision needs: Yes Review of Systems Const Denies chills and Denies fever(s) Card Denies chest pain, Denies dyspnea and Denies dyspnea on exertion Resp Denies cough, Denies dyspnea and Denies dyspnea on exertion GI Denies hematochezia and Denies change in bowel habits Denies hematuria Musc Denies back pain and Denies limited range of motion Neuro Denies focal weakness and Denies convulsions Psych Denies depression and Denies mood swings Physical Exam Vital Signs: BMI result Body Mass Index 26.9 Const General: comfortable and no acute distress Orientation/consciousness: patient oriented x3 Neck Neck: Yes no lymphadenopathy Resp Auscultation: clear to auscultation bilaterally Cardio Rhythm: regular rhythm GI Palpation (GI): Soft to palpation, nontender and no guarding Neuro General: patient oriented x3 Assessment & Plan Assessment & Plan (1) Neuroendocrine neoplasm of gastrointestinal tract: Code(s): D3A.8 - Other benign neuroendocrine tumors Category: Medical Plan: Status post right colon resection in February,. She had a T3 N1 neuroendocrine tumor. Current exam is unremarkable. She denies any significant GI complaints She is to have surveillance with imaging every 6 months for now. She she may have an MRI of the abdomen pelvis in February 2024 because she just had a CT scan last July 2022 to minimize radiation exposure. I explained the plan to her. I will see her again in the office in about 6 months. She seems to be doing well overall. She is to regularly to follow-up with Dr. Mejia of Oncology as well. Coding Level of Care Code Est Pt Level 3 (30506) Diagnoses Neuroendocrine neoplasm of gastrointestinal tract D3A.8
== END 2023-10-16 15:35 | disposition home or self-care (01) ==
PROVIDERS: PCP Internal Medicine; Visit Provider Surgery
DX: D3A.8 Other benign neuroendocrine tumors (principal)
CPT/HCPCS: 99213

== ENCOUNTER → 2023-10-16 15:12 | Outpatient (BNVA) | payer OTHER, SELFPAY | PROVIDERS: PCP Internal Medicine; Visit Provider Surgery ==

== ENCOUNTER 2023-12-26 14:04 | Outpatient (AMB) | payer BC, SELFPAY ==
[2023-12-26 14:13] VITALS: BP 142/72; PULSE 77; O2SAT 94; BMI 26.9
--- NOTE | 2023-12-26 14:13 | MHC.PC.OV ---
Vital Signs 12/26/23 14:13 Height 5 ft 3 in Weight 152 lb BMI 26.9 BP 142/72 H Blood Pressure Location Lt brachial Position Sitting Pulse 77 Pulse Source Pulse Oximeter Pulse Oximetry (%) 94 Oxygen Delivery Method Room Air Intake Visit Reasons: 6mth f/u Sweetbread Trimmer Required: No Accompanied by: Self / Same As Patient Allergies No Known Allergies Allergy (Mild, Verified 12/26/23 14:13) N/A Tobacco use date assessed: 06/27/23 Fall risk assessment: No Falls in past year Last assessed Fall Risk: 12/26/23 Dental Screening Dental Screen Date: 06/27/23 Did you have a dental visit in the last 12 months?: Yes Did you have a dental problem in the last 6 months where you did not have access to dental care?: No Was dental information given to patient?: Patient has dentist HPI 6mth f/u HPI Details HTN on Rx; compliant and doing well PFSH Medical History Colon cancer GERD (gastroesophageal reflux disease) Restless leg Leslie's disease Vitiligo Neuroendocrine neoplasm of gastrointestinal tract Hypothyroidism Hypertension Surgical History Hx of colonoscopy History of carpal tunnel release History of spinal surgery Family History Father Melanoma Mother Alive and well Paternal Grandmother Uterine cancer Sister Pheochromocytoma Social History Household Members: Spouse Housing: House Are you a primary pharmacy care coordinator to a significant other at home: No Do you presently have visiting nurse or other home services: No Alcohol intake: current Alcohol intake frequency: a few times a month Patient Tobacco Use Status: Former Tobacco user Tobacco use type: Cigarette e-Cigarette/Vaping Use: Never Used Second Hand Smoke Exposure: No service: No Current occupational status: employed Cognitive needs: No Hearing needs: No Vision needs: Yes Questionnaire PHQ-9 Over the last 2 weeks, how often have you been bothered by any of the following problems? 1. Little interest or pleasure in doing things: not at all 2. Feeling down, depressed, or hopeless: not at all 3. Trouble falling or staying asleep, or sleeping too much: not at all 4. Feeling tired or having little energy: not at all 5. Poor appetite or overeating: not at all 6. Feeling bad about yourself - or that you are a failure or have let yourself or your family down: not at all 7. Trouble concentrating on things, such as reading the newspaper or watching television: not at all 8. Moving or speaking so slowly that other people could have noticed. Or the opposite - being so fidgety or restless that you have been moving around a lot more than usual: not at all 9. Thoughts that you would be better off or of hurting yourself in some way: not at all Total score: 0 Depression Screening Interpretation: Negative Depression Screening Done: Yes 54678 - PHQ-9 Billing: Yes Source: Developed by Drs. Tom Lehman, Archana Santos, Bhavin Payne and colleagues, with an educational clayton from [employer]. Thrive Questionnaire Date Thrive assessed: 06/27/23 AUDIT C Alcohol Use Questionnaire (AUDIT-C) 1. How often do you have a drink containing alcohol?: 2-4 times a month 2. How many drinks containing alcohol do you have on a typical day when you are drinking?: 1 or 2 Total Score: 2 Score Reviewed/Action Taken: Yes LIGIA-7 AMB Questionnaire LIGIA-7 Date LIGIA - 7 assessed: 06/27/23 Source: Developed by Drs. Tom Lehman, Archana Santos, Bhavin Payne and colleagues, with an educational clayton from [employer]. Review of Systems Const Denies chills, Denies headache(s) and Denies weight loss ENT Denies headache(s) Card Denies chest pain, Denies syncope, Denies irregular heart rhythm and Denies dyspnea Resp Denies chest congestion, Denies cough and Denies dyspnea GI Denies abdominal pain, Denies change in stool character, Denies nausea and Denies vomiting Musc Denies deformity and Denies joint swelling Neuro Denies syncope and Denies headache(s) Physical exam (Primary Care) Vital Signs: Last Vital Signs Pulse 77 12/26/23 14:13 BP 142/72 H 12/26/23 14:13 Pulse Ox 94 12/26/23 14:13 Oxygen Delivery Method Room Air 12/26/23 14:13 BMI result Body Mass Index 26.9 Tobacco/Smoking Status: Tobacco use Status Tobacco use date assessed 06/27/23 12/26/23 14:16 Patient Tobacco Use Status Former Tobacco user 12/26/23 14:16 Tobacco use type Cigarette 12/26/23 14:16 e-Cigarette/Vaping Use Never Used 12/26/23 14:16 PHQ-9: PHQ-9 Score PHQ-9: Total score 0 12/26/23 14:16 Depression Screening Interpretation: Negative Thrive Assessment: Date of Thrive Assessment Date Thrive assessed 06/27/23 12/26/23 14:16 Const General: cooperative, comfortable, no acute distress and alert Neck Neck: Yes no lymphadenopathy Thyroid: Thyroid normal Resp Effort & Inspection: normal respiratory effort Auscultation: clear to auscultation bilaterally Percussion: percussion normal Cardio Jugular venous distension: no JVD Palpation: normal PMI Rate: regular rate Rhythm: regular rhythm Heart sounds: S1 normal heart sound present and S2 normal heart sound present GI Inspection: Yes normal to inspection Palpation (GI): No hepatosplenomegaly present Skin General skin exam: no rashes or lesions noted Extrem General: Yes no clubbing, cyanosis or edema Assessment and Plan Assessment & Plan (1) Hypertension: Code(s): I10 - Essential (primary) hypertension Plan: stable; same rx Orders: Orders Thyroid Stimulating Hormone 12/26/23 Z13.29 - Encounter for screening for other suspected endocrine disorder Comprehensive [place]. Panel Fast 12/26/23 Z13.9 - Encounter for screening, unspecified Medications: Refilled hydrochlorothiazide 25 mg PO DAILY 90 tabs 8RF Coding Level of Care Code Est Pt Level 3 (86035) Diagnoses Hypertension I10
== END 2023-12-26 14:33 | disposition home or self-care (01) ==
PROVIDERS: PCP Internal Medicine; Visit Provider Internal Medicine
DX: I10 Essential (primary) hypertension (principal)
CPT/HCPCS: 99213

== ENCOUNTER 2024-01-06 08:46 | Outpatient (REF) | payer BC, SELFPAY ==
[2024-01-06 10:20] LABS: Alanine Aminotransferase 17 U/L (0-31); Alkaline Phosphatase 66 U/L (39-117); Anion Gap 14 (12-20); Aspartate Amino Transferase 18 U/L (5-31); Bilirubin Total 0.7 mg/dL (0.0-1.0); Blood Urea Nitrogen 17 mg/dL (9-16); Calcium 10.1 mg/dL (8.4-10.2); Carbon Dioxide 32 mmol/L (22-29); Chloride 103 mmol/L (96-108); Estimated Glomerular Filt Rate > 60; Glucose Fasting 102 mg/dL (60-99); Potassium 3.3 mmol/L (3.3-5.1); Sodium 146 mmol/L (135-145)
[2024-01-06 10:28] LABS: Thyroid Stimulating Hormone 1.84 uIU/mL (0.32-4.0)
== END 2024-01-06 08:47 | disposition home or self-care (01) ==
LOC: HO.LAB 08:46
PROVIDERS: PCP Internal Medicine; Visit Provider Internal Medicine
DX: Z13.29 Encounter for screening for other suspected endocrine disorder (principal); Z13.9 Encounter for screening, unspecified
CPT/HCPCS: 36415; 80053; 84443

== ENCOUNTER 2024-04-18 15:10 | Outpatient (AMB) | payer BC, SELFPAY ==
--- OUTSIDE RECORDS SUMMARY | 2024-04-18 15:12 | XMS_ITS ---
Author Organization [facility] Address [address] [place] [address] Care Team Providers Care Rail Switch Operator Name Role Phone Michael Valadez MD Primary Care Provider Tom Llamas Unavailable [phone] Encounters Encounter Location Date Provider Diagnosis [facility] [address] [place] [address] 03/05/2023 Tom Roberts PLAN OF TREATMENT No Information
--- OUTSIDE RECORDS SUMMARY | 2024-04-18 15:13 | XMS_ITS ---
Author Organization [facility] Address [address] [place] [address] Care Team Providers Care Help Desk Administrator Name Role Phone Michael Valadez MD Primary Care Provider Tom Llamas Unavailable [phone] REASON FOR VISIT screening PROBLEMS Problem Type ICD Code Onset Dates Problem Status W/U Status Risk SNOMED Code Notes Problem Diverticulosis of large intestine without perforation or abscess without bleeding (K57.30) Active confirmed Diverticul ar disease of colon ([id number]) Encounters Encounter Location Date Provider Diagnosis [facility] Outpatient [address], [place] [id number] 02/06/2023 Tom Roberts Encounter for scre ening colonoscopy Z12.11 ; Other specified diseases of intestine K63.89 ; Diverticulosis of large intestine without perforation or abscess without bleeding K57.30 and Other hemorrhoids K64.8 ASSESSMENTS Encounter Date Diagnosis Assessment Notes Treatment Notes Treatment Clinical Notes 02/06/2023 Encounter for screening colonoscopy (ICD-10 - Z12.11) 02/06/2023 Other specified diseases of intestine (ICD-10 - K63.89) 02/06/2023 Diverticulosis of large intestine without perforation or abscess without bleeding (ICD-10 - K57.30) 02/06/2023 Other hemorrhoids (ICD-10 - K64.8) PLAN OF TREATMENT Next Appt Details Follow Up: prn, Reason:
--- OUTSIDE RECORDS SUMMARY | 2024-04-18 15:13 | XMS_ITS | Patient Health Record ---
Author Organization [facility] Address [address] [place] [address] Care Team Providers Care Surgical Dental Assistant Name Role Phone Michael Valadez MD Primary Care Provider Tom Llamas [phone] ALLERGIES No Known Allergies REASON FOR REFERRAL No Information MEDICATIONS Medication [...] Problem Colon cancer screening (Z12.11) Active confirmed [id number] Problem Preprocedural examination (Z01.818) Active confirmed [id number] Problem Diverticulosis of large intestine without perforation or abscess without bleeding (K57.30) Active confirmed Diverticul ar disease of colon (306665041) PLAN OF TREATMENT Pending Test Test Name Order Date Pathology 02/06/2023 Future Test Test Name Order Date COLONOSCOPY 09/07/2022 Insurance Providers Payer Name Payer Address Payer Phone Subscriber Number Group Number Insured Name Patient Relationship to Insured Coverage Start Date Coverage End Date [facility] [address] [place] [phone] [id number] GIOVANNI SILVEIRA Self - patient is the insured MEDICAL (GENERAL) HISTORY Medical History History ICD Code HTN Leslie's Negative colonoscopy with Dr. Galdino goodman her early 50's Denies [place],DM,CVA,Lung disease,renal dise ase Surgical History Surgery Date(Month/Year) L4-L5 fusion 2011 Right carpal tunnel 2006
--- OUTSIDE RECORDS SUMMARY | 2024-04-18 15:13 | XMS_ITS ---
Author Organization [facility] Address [address] [place] [address] Care Team Providers Care Magician Helper Name Role Phone Michael Valadez MD Primary Care Provider Unavaila Tom Arriaga Unavailable [phone] REASON FOR VISIT Needs [facility] referrals Encounters Encounter Location Date Provider Diagnosis [facility] [address] [place] [address] 02/07/2023 Tom Roberts PLAN OF TREATMENT No Information
--- NOTE | 2024-04-18 15:18 | A.OFFVIS_ITS ---
Intake Visit Reasons: 6 month follow-up s/p colon resection Intake Note: Patient here for 6m laparoscopic right colon resection. Reports surgical site healed well. Patient c/o: normal BM. Denies diarrhea, constipation. Casting Repairer Required: No Accompanied by: Self / Same As Patient Allergies No Known Allergies Allergy (Mild, Verified 04/18/24 15:25) N/A Medication List - Last Reconciled 04/18/24 by Mg Ahmadi MD calcium carbonate-vitamin D3 500 mg-10 mcg (400 unit) (Calcium 500 + D) 1 tab PO DAILY hydrochlorothiazide 25 mg PO DAILY levothyroxine 75 mcg PO DAILY@0600 kdlasjgz-sfo-ocyf-FA-vit K-lut 8 mg iron-400 mcg-50 mcg (Multivitamin Women 50 Plus) 1 tab PO DAILY HPI HPI 6 month follow-up s/p colon resection: Details: She is here for follow-up for her history of a neuroendocrine tumor, T3 N1. This was in the ileocecal valve. She had right colon resection last 02/24/2023 She had a CAT scan done last 07/26/2023 and this was unremarkable. She denies any GI complaints. She feels well overall. She denies any diarrhea or wheezing or flushing. [facility] Medical History (Updated 04/18/24 @ 15:43 by Mg Ahmadi MD) History of well differentiated neuroendocrine tumor of colon Colon cancer GERD (gastroesophageal reflux disease) Restless leg Leslie's disease Vitiligo Neuroendocrine neoplasm of gastrointestinal tract Hypothyroidism Hypertension Surgical History Hx of colonoscopy History of carpal tunnel release History of spinal surgery Family History Father Melanoma Mother Alive and well Paternal Grandmother Uterine cancer Sister Pheochromocytoma Social History Household Members: Spouse Housing: House Are you a primary child care attendant school to a significant other at home: No Do you presently have visiting nurse or other home services: No Alcohol intake: current Alcohol intake frequency: a few times a month Patient Tobacco Use Status: Former Tobacco user Tobacco use type: Cigarette e-Cigarette/Vaping Use: Never Used Second Hand Smoke Exposure: No service: No Current occupational status: employed Cognitive needs: No Hearing needs: No Vision needs: Yes Review of Systems Const Denies chills and Denies fever(s) Card Denies chest pain, Denies dyspnea and Denies dyspnea on exertion Resp Denies cough, Denies dyspnea and Denies dyspnea on exertion GI Denies hematochezia and Denies change in bowel habits Denies hematuria Musc Denies back pain and Denies limited range of motion Neuro Denies focal weakness and Denies convulsions Psych Denies depression and Denies mood swings Physical Exam Const General: comfortable and no acute distress Orientation/consciousness: patient oriented x3 Neck Neck: Yes no lymphadenopathy Resp Auscultation: clear to auscultation bilaterally Cardio Rhythm: regular rhythm GI Palpation (GI): Soft to palpation, nontender and no guarding Neuro General: patient oriented x3 Assessment & Plan Assessment & Plan (1) History of well differentiated neuroendocrine tumor of colon: Code(s): Z85.038 - Personal history of other malignant neoplasm of large intestine Category: Medical Plan: She had right colon resection last year for a neuroendocrine tumor of the ileocecal valve, T3 N1. She is doing very well overall. She denies any GI complaints I will order for a an MRI of the abdomen and pelvis as part of surveillance. Her CT scan done last July, was unremarkable. She has also continues to follow up with Dr. Mejia of Oncology. I will call her about the MRI findings. As part of surveillance, she should have a CT scan as well sometime middle of next year. Coding Level of Care Code Est Pt Level 3 (12009) Diagnoses History of well differentiated neuroendocrine tumor of colon Z85.038
== END 2024-04-18 15:47 | disposition home or self-care (01) ==
PROVIDERS: PCP Internal Medicine; Visit Provider Surgery
DX: Z85.038 Personal history of other malignant neoplasm of large intestine (principal)
CPT/HCPCS: 99213

== ENCOUNTER → 2024-04-18 15:10 | Outpatient (BNVA) | payer BC, SELFPAY | PROVIDERS: PCP Internal Medicine; Visit Provider Surgery ==

== ENCOUNTER 2024-05-20 15:28 | Outpatient (REF) | payer BC, SELFPAY ==
--- NOTE | ~2024-05-20 | MR_ITS ---
EXAMINATION: MRI Abdomen without and with contrast HISTORY: Z85.038 - Personal history of other malignant neoplasm of large intestine COMPARISON: Correlation is made with a CT of the abdomen and pelvis with contrast dated 08/01/2023. TECHNIQUE: Axial in and out of phase T1-weighted gradient echo, axial diffusion weighted, and axial and coronal haste T2 with fat saturation images were obtained through the abdomen and pelvis. Subsequently, fat suppressed axial and coronal T1-weighted images were obtained after the intravenous administration of 7 mL Gadavist. FINDINGS: There is no significant signal loss within the liver on opposed phase imaging to suggest steatosis. There are 2 subcentimeter cysts in the left lobe and an additional subcentimeter cyst adjacent to the gallbladder. No enhancing liver mass is identified. There is no intra or extrahepatic biliary ductal dilatation. The hepatic and portal veins are patent. The gallbladder, spleen, pancreas, adrenals, and right kidney are unremarkable. There is a 10 mm cyst in the interpolar region of the left kidney. No retroperitoneal lymphadenopathy or ascites is identified in the abdomen or pelvis. The urinary bladder is partially collapsed. The uterus is unremarkable. No bowel abnormality is identified. The patient is status post posterior fusion of L4 and L5 with pedicle screws. MR/MR abdomen wo/w con IMPRESSION: No evidence of metastatic disease in the abdomen or pelvis. Electronically signed by: Tom Garcia MD 05/22/2024 09:15 AM [facility]
[2024-05-20] MEDS: gadobutroL 7.5 ML VIAL IVPUSH (16:39)
--- OUTSIDE RECORDS SUMMARY | 2024-05-20 19:29 | XMS_ITS ---
Author Organization [facility] Address [address] [place] [address] Care Team Providers Care Customer Service Coordinator Name Role Phone Michael Valadez MD Primary Care Provider Tom Llamas Unavailable [phone] Encounters Encounter Location Date Provider Diagnosis [facility] [address] [place] [address] 03/05/2023 Tom Roberts PLAN OF TREATMENT No Information
--- OUTSIDE RECORDS SUMMARY | 2024-05-20 19:29 | XMS_ITS ---
Author Organization [facility] Address [address] [place] [address] Care Team Providers Care Educational Aide Name Role Phone Michael Valadez MD Primary Care Provider Unavaila Tom Arriaga Unavailable [phone] REASON FOR VISIT Needs [facility] referrals Encounters Encounter Location Date Provider Diagnosis [facility] [address] [place] [address] 02/07/2023 Tom Roberts PLAN OF TREATMENT No Information
--- OUTSIDE RECORDS SUMMARY | 2024-05-20 19:29 | XMS_ITS ---
Author Organization [facility] Address [address] [place] [address] Care Team Providers Care Table Saw Operator Name Role Phone Michael Valadez MD Primary Care Provider Tom Llamas Unavailable [phone] REASON FOR VISIT screening PROBLEMS Problem Type ICD Code Onset Dates Problem Status W/U Status Risk SNOMED Code Notes Problem Diverticulosis of large intestine without perforation or abscess without bleeding (K57.30) Active confirmed Diverticul ar disease of colon (145888369) Encounters Encounter Location Date Provider Diagnosis [facility] [place] [address] [place], [place] [id number] 02/06/2023 Tom Roberts Encounter for scre ening [...]
--- OUTSIDE RECORDS SUMMARY | 2024-05-20 19:29 | XMS_ITS | Patient Health Record ---
Author Organization [facility] Address [address] [place] [address] Care Team Providers Care Payroll Professional Name Role Phone Michael Valadez MD Primary Care Provider Tom Llamas [phone] ALLERGIES No Known Allergies REASON FOR REFERRAL [...] Problem Colon cancer screening (Z12.11) Active confirmed 600050158 Problem Preprocedural examination (Z01.818) Active confirmed [id number] Problem Diverticulosis of large intestine without perforation or abscess without bleeding (K57.30) Active confirmed Diverticul ar disease of colon (040413419) PLAN OF TREATMENT Pending Test Test Name Order Date Pathology 02/06/2023 Future Test Test Name Order Date COLONOSCOPY 09/07/2022 Insurance Providers Payer Name Payer Address Payer Phone Subscriber Number Group Number Insured Name Patient Relationship to Insured Coverage Start Date Coverage End Date [facility] [address] [place] [address] [phone] [id number] GIOVANNI SILVEIRA Self - patient is the insured MEDICAL (GENERAL) HISTORY Medical History History ICD Code HTN Leslie's Negative colonoscopy with Dr. Galdino goodman her early 50's Denies [place],DM,CVA,Lung disease,renal dise ase Surgical History Surgery Date(Month/Year) L4-L5 fusion 2011 Right carpal tunnel 2006
== END 2024-05-20 15:29 | disposition home or self-care (01) ==
LOC: HO.MRI 15:28
PROVIDERS: PCP Internal Medicine; Visit Provider Surgery
DX: Z85.038 Personal history of other malignant neoplasm of large intestine (principal)
CPT/HCPCS: 74183; A9585

== ENCOUNTER → 2024-05-20 15:28 | Outpatient (BNV) | payer BC, SELFPAY | PROVIDERS: PCP Internal Medicine; Visit Provider Radiology Diagnostic Radiology | DX: Z85.038 Personal history of other malignant neoplasm of large intestine (principal) | CPT/HCPCS: 74183 ==

== ENCOUNTER 2024-05-27 14:15 | Outpatient (AMB) | payer BC, SELFPAY ==
--- NOTE | 2024-05-27 14:22 | A.OFFVIS_ITS ---
Vital Signs 05/27/24 14:34 Height 5 ft 3 in Weight 154 lb BMI 27.3 Intake Visit Reasons: s/p MRI 05/20/24 Intake Note: This patient presents for MRI results. Pt c/o; no concerns. 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 She had right colon resection last 02/24/2023 She had an MRI of the abdomen last week and is here to discuss the findings She denies any complaints. 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 Colon cancer GERD (gastroesophageal reflux disease) Restless leg Leslie's disease Vitiligo Neuroendocrine neoplasm of gastrointestinal tract Hypothyroidism Hypertension Surgical History Hx of colonoscopy History of carpal tunnel release History of spinal surgery Family History Father Melanoma Mother Alive and well Paternal Grandmother Uterine cancer Sister Pheochromocytoma Social History Household Members: Spouse Housing: House Are you a primary care transition mgr to a significant other at home: No Do you presently have visiting nurse or other home services: No Alcohol intake: current Alcohol intake frequency: a few times a month Patient Tobacco Use Status: Former Tobacco user Tobacco use type: Cigarette e-Cigarette/Vaping Use: Never Used Second Hand Smoke Exposure: No service: No Current occupational status: employed Cognitive needs: No Hearing needs: No Vision needs: Yes Review of Systems Const Denies chills and Denies fever(s) Card Denies chest pain, Denies dyspnea and Denies dyspnea on exertion Resp Denies cough, Denies dyspnea and Denies dyspnea on exertion GI Denies hematochezia and Denies change in bowel habits Denies hematuria Musc Denies back pain and Denies limited range of motion Neuro Denies focal weakness and Denies convulsions Psych Denies depression and Denies mood swings Physical Exam Const General: comfortable and no acute distress Resp Effort & Inspection: normal respiratory effort Cardio Rate: regular rate GI Palpation (GI): Soft to palpation, not firm and nontender Assessment & Plan Assessment & Plan (1) 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 She continues to do well I have reviewed her MRI from last week. This does not suggest any recurrent lesion or any metastatic disease She is to undergo a CT scan later this year as well, probably around October. She is also being followed by the oncologist. 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
[2024-05-27 14:34] VITALS: BMI 27.3
== END 2024-05-27 14:37 | disposition home or self-care (01) ==
PROVIDERS: PCP Internal Medicine; Visit Provider Surgery
DX: Z85.068 Personal history of other malignant neoplasm of small intestine (principal)
CPT/HCPCS: 99212

== ENCOUNTER → 2024-05-27 14:15 | Outpatient (BNVA) | payer BC, SELFPAY | PROVIDERS: PCP Internal Medicine; Visit Provider Surgery ==

== ENCOUNTER 2024-06-27 14:04 | Outpatient (AMB) | payer BC, SELFPAY ==
[2024-06-27 14:25] VITALS: BP 126/82; PULSE 88; O2SAT 94; BMI 27.2
--- NOTE | 2024-06-27 14:25 | MHC.PC.OV ---
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 Required: No Accompanied by: Self / Same As Patient Allergies No Known Allergies Allergy (Mild, Verified 06/27/24 14:25) N/A Medication List - Last Reconciled 06/27/24 by Michael Valadez MD calcium carbonate-vitamin D3 500 mg-10 mcg (400 unit) (Calcium 500 + D) 1 tab PO DAILY hydrochlorothiazide 25 mg PO DAILY levothyroxine 75 mcg PO DAILY@0600 uabctvpf-xxw-rjsl-FA-vit K-lut 8 mg iron-400 mcg-50 mcg (Multivitamin Women 50 Plus) 1 tab PO DAILY Tobacco use date assessed: 06/27/23 Fall risk assessment: No Falls in past year Last assessed Fall Risk: 06/27/24 Dental Screening Dental Screen Date: 06/27/24 Did you have a dental visit in the last 12 months?: Yes Did you have a dental problem in the last 6 months where you did not have access to dental care?: No Was dental information given to patient?: Patient has dentist HPI 6mth f/u HPI Details HTN and hypothyroidism; doing well and compliant [facility] Medical History 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 Colon cancer GERD (gastroesophageal reflux disease) Restless leg Leslie's disease Vitiligo Neuroendocrine neoplasm of gastrointestinal tract Hypothyroidism Hypertension Surgical History Hx of colonoscopy History of carpal tunnel release History of spinal surgery Family History Father Melanoma Mother Alive and well Paternal Grandmother Uterine cancer Sister Pheochromocytoma Social History Household Members: Spouse Housing: House Are you a primary home care music therapist to a significant other at home: No Do you presently have visiting nurse or other home services: No Alcohol intake: current Alcohol intake frequency: a few times a month Patient Tobacco Use Status: Former Tobacco user Tobacco use type: Cigarette e-Cigarette/Vaping Use: Never Used Second Hand Smoke Exposure: No service: No Current occupational status: employed Cognitive needs: No Hearing needs: No Vision needs: Yes Questionnaire PHQ-9 Over the last 2 weeks, how often have you been bothered by any of the following problems? 1. Little interest or pleasure in doing things: not at all 2. Feeling down, depressed, or hopeless: not at all 3. Trouble falling or staying asleep, or sleeping too much: not at all 4. Feeling tired or having little energy: not at all 5. Poor appetite or overeating: not at all 6. Feeling bad about yourself - or that you are a failure or have let yourself or your family down: not at all 7. Trouble concentrating on things, such as reading the newspaper or watching television: not at all 8. Moving or speaking so slowly that other people could have noticed. Or the opposite - being so fidgety or restless that you have been moving around a lot more than usual: not at all 9. Thoughts that you would be better off or of hurting yourself in some way: not at all Total score: 0 Depression Screening Interpretation: Negative Depression Screening Done: Yes 70830 - PHQ-9 Billing: Yes Source: Developed by Drs. Tom Lehman, Archana Santos, Bhavin Payne and colleagues, with an educational clayton from [employer]. Thrive Questionnaire Date Thrive assessed: 06/27/24 I am a: Patient What is your living situation today?: I have a steady place to live Within the past 12 months, did the food you bought not last and you didn't have the money to get more?: Never true Within the past 12 months, did you worry whether your food would run out before you got money to buy more?: Never true Do you have trouble paying for medicines?: No Do you have trouble getting transportation to medical appointments?: No Do you have trouble paying your heating and electricity bill?: No Do you have trouble taking care of your child, family member or friend?: No Do you have trouble with day-to-day activities such as bathing, preparing meals, shopping, managing finances, etc.?: No Are you currently unemployed and looking for a job?: No Are you interested in more education?: No Please select the resources that you would like help with: None Currently or been in a relationship where the following occur: No concerns reported THRIVE Score: 0 AUDIT C Alcohol Use Questionnaire (AUDIT-C) 1. How often do you have a drink containing alcohol?: Monthly or less 2. How many drinks containing alcohol do you have on a typical day when you are drinking?: 1 or 2 3. How often do you have six or more drinks on one occasion?: Never Total Score: 1 LIGIA-7 AMB Questionnaire LIGIA-7 Date LIGIA - 7 assessed: 06/27/24 Feeling nervous, anxious, or on edge: 0 = Not at all Not being able to stop or control worryin = Not at all Worrying too much about different things: 0 = Not at all Trouble relaxin = Not at all Being so restless that it is hard to sit still: 0 = Not at all Becoming easily annoyed or irritable: 0 = Not at all Feeling afraid as if something awful might happen: 0 = Not at all Total LIGIA-7 score (0-4 normal; 5-9 mild; 10-14 moderate; 15-21 severe): 0 Source: Developed by Drs. Tom Lehman, Archana Santos, Bhavin Payne and colleagues, with an educational clayton from [employer]. Review of Systems Const Denies chills, Denies headache(s) and Denies weight loss ENT Denies headache(s) Card Denies chest pain, Denies syncope, Denies irregular heart rhythm and Denies dyspnea Resp Denies chest congestion, Denies cough and Denies dyspnea GI Denies abdominal pain, Denies change in stool character, Denies nausea and Denies vomiting Musc Denies deformity and Denies joint swelling Neuro Denies syncope and Denies headache(s) Physical exam (Primary Care) Vital Signs: Last Vital Signs Pulse 88 06/27/24 14:25 BP 126/82 06/27/24 14:25 Pulse Ox 94 06/27/24 14:25 Oxygen Delivery Method Room Air 06/27/24 14:25 BMI result Body Mass Index 27.2 Tobacco/Smoking Status: Tobacco use Status Tobacco use date assessed 06/27/23 06/27/24 14:29 Patient Tobacco Use Status Former Tobacco user 06/27/24 14:29 Tobacco use type Cigarette 06/27/24 14:29 e-Cigarette/Vaping Use Never Used 06/27/24 14:29 PHQ-9: PHQ-9 Score PHQ-9: Total score 0 06/27/24 14:29 Depression Screening Interpretation: Negative Thrive Assessment: Date of Thrive Assessment Date Thrive assessed 06/27/24 06/27/24 14:29 Currently or been in a relationship where the following occur: No concerns reported Const General: cooperative, comfortable, no acute distress and alert Neck Neck: Yes no lymphadenopathy Thyroid: Thyroid normal Resp Effort & Inspection: normal respiratory effort Auscultation: clear to auscultation bilaterally Percussion: percussion normal Cardio Jugular venous distension: no JVD Palpation: normal PMI Rate: regular rate Rhythm: regular rhythm Heart sounds: S1 normal heart sound present and S2 normal heart sound present GI Inspection: Yes normal to inspection Palpation (GI): No hepatosplenomegaly present Skin General skin exam: no rashes or lesions noted Extrem General: Yes no clubbing, cyanosis or edema Coding Level of Care Code Est Pt Level 3 (21583) Diagnoses Hypertension I10 Hypothyroidism E03.9 Additional Codes PHQ-9 - 69082 - PHQ-9 Billing: Yes ([id number]) Assessment & Plan Assessment & Plan (1) Hypertension: Code(s): I10 - Essential (primary) hypertension Category: Medical Plan: stable; same rx (2) Hypothyroidism: Code(s): E03.9 - Hypothyroidism, unspecified Category: Medical Plan: stablle; same rx Medications: Refilled hydrochlorothiazide 25 mg PO DAILY 90 tabs 0RF levothyroxine 75 mcg PO DAILY@0600 90 tabs 0RF
--- OUTSIDE RECORDS SUMMARY | 2024-06-27 15:07 | XMS_ITS ---
Author Organization [facility] Address [address] [place] [address] Care Team Providers Care Die Try Out Worker Name Role Phone Michael Valadez MD Primary Care Provider Tom Llamas Unavailable [phone] Encounters Encounter Location Date Provider Diagnosis [facility] [address] [place] [address] 03/05/2023 Tom Roberts PLAN OF TREATMENT No Information
--- OUTSIDE RECORDS SUMMARY | 2024-06-27 15:07 | XMS_ITS ---
Author Organization [facility] Address [address] [place] [address] Care Team Providers Care Drafting Instructor Name Role Phone Michael Valadez MD Primary Care Provider Tom Llamas Unavailable [phone] REASON FOR VISIT screening PROBLEMS Problem Type ICD Code Onset Dates Problem Status W/U Status Risk SNOMED Code Notes Problem Diverticulosis of large intestine without perforation or abscess without bleeding (K57.30) Active confirmed Diverticul ar disease of colon (511204127) Encounters Encounter Location Date Provider Diagnosis [facility] [place] Outpatient [address] [place], [place] [phone] 02/06/2023 Tom Roberts Encounter for scre ening [...]
--- OUTSIDE RECORDS SUMMARY | 2024-06-27 15:08 | XMS_ITS | Patient Health Record ---
Author Organization [facility] Address [address] [place] [address] Care Team Providers Care Supervisor Scrap Preparation Name Role Phone Michael Valadez MD Primary Care Provider Tom Llamas [phone] ALLERGIES No Known Allergies REASON FOR REFERRAL [...] Problem Colon cancer screening (Z12.11) Active confirmed 364844129 Problem Preprocedural examination (Z01.818) Active confirmed 403980355826499 Problem Diverticulosis of large intestine without perforation or abscess without bleeding (K57.30) Active confirmed Diverticul ar disease of colon (249935948) PLAN OF TREATMENT Pending Test Test Name Order Date Pathology 02/06/2023 Future Test Test Name Order Date COLONOSCOPY 09/07/2022 Insurance Providers Payer Name Payer Address Payer Phone Subscriber Number Group Number Insured Name Patient Relationship to Insured Coverage Start Date Coverage End Date [facility] [address] [place] [phone] [id number] GIOVANNI SILVEIRA Self - patient is the insured MEDICAL (GENERAL) HISTORY Medical History History ICD Code HTN Leslie's Negative colonoscopy with Dr. Galdino goodman her early 50's Denies CA,DM,CVA,Lung disease,renal dise ase Surgical History Surgery Date(Month/Year) L4-L5 fusion 2011 Right carpal tunnel 2006
--- OUTSIDE RECORDS SUMMARY | 2024-06-27 15:08 | XMS_ITS ---
Author Organization [facility] Address [address] [place] [address] Care Team Providers Care Player Manager Name Role Phone Michale Valadez MD Primary Care Provider Unavaila Tom Arriaga Unavailable [phone] REASON FOR VISIT Needs [facility] referrals Encounters Encounter Location Date Provider Diagnosis [facility] [address] [place] [address] 02/07/2023 Tom Roberts PLAN OF TREATMENT No Information
== END 2024-06-27 14:42 | disposition home or self-care (01) ==
PROVIDERS: PCP Internal Medicine; Visit Provider Internal Medicine
DX: I10 Essential (primary) hypertension (principal); E03.9 Hypothyroidism, unspecified

== ENCOUNTER → 2024-06-27 14:04 | Outpatient (BNVA) | payer BC, SELFPAY | PROVIDERS: PCP Internal Medicine; Visit Provider Internal Medicine | DX: I10 Essential (primary) hypertension (principal); E03.9 Hypothyroidism, unspecified | CPT/HCPCS: 96127 ==

== ENCOUNTER 2024-08-10 09:45 | Outpatient (REF) | payer BC, SELFPAY ==
--- OUTSIDE RECORDS SUMMARY | 2024-08-10 09:48 | XMS_ITS ---
Author Organization [facility] Address [address] [place] [address] Care Team Providers Care Purchase Order Checker Name Role Phone Michael Valadez MD Primary Care Provider Tom Llamas [phone] Encounters Encounter Location Date Provider Diagnosis [facility] [address] [place] [address] 03/05/2023 Tom Roberts Plan Of Treatment No Information Progress Notes * GIOVANNI SILVEIRADOB:1955 (67 yo F)Acc No.[id number]:03/05/2023 Patient:?GIOVANNI SILVEIRA :1955???Age:67 Y???Sex:Female Address:[place], [address] * true * Date:? Generated for Oumoui denton/Myrna/eTransmitting on:?08/10/2024 09:48 AM EDT
--- OUTSIDE RECORDS SUMMARY | 2024-08-10 09:48 | XMS_ITS | Patient Health Record ---
Author Organization [facility] Address [address] [place] [address] Care Team Providers Care Commercial Service Technician Name Role Phone Michael Valadez MD Primary Care Provider Tom Llamas [phone] Allergies No Known Allergies Reason For Referral No Information Medications Medication SIG (Take, Route, Frequency, Duration) Notes [...] Once a day for 30 day(s) Active Immunizations Vaccine Route Administration Date Status Comme nts Influenza Unknown 02/22/2022 Administered Social History Tobacco Use: Social History Observation Description Date Details (start date - stop date) Never Smoker NA - NA Tobacco Use/Smoking Question Answer Notes Patient is [...] Never (0 point) Points 2 Interpretation Negative Section Notes: Nonsmoker, no significant al cohol use. Problems Problem Type SNOMED Code ICD Code Onset Dates Problem Status W/U Status Risk Notes Problem 565411921 Colon cancer screening (Z12.11) Active confirmed Problem Diverticular disease of colon (752604586) Diverticulosis of large intestine without perforation or abscess without bleeding (K57.30) Active confirmed Problem 016597953070500 Preprocedural examination (Z01.818) Active confirmed Plan Of Treatment Pending Test Test Name Order Date Pathology 02/06/2023 Future Test Test Name Order Date COLONOSCOPY 09/07/2022 Insurance Providers Payer Name Payer Address Payer Phone Subscriber Number Group Number Insured Name Patient Relationship to Insured Coverage Start Date Coverage End Date [facility] [address] [place] [phone] [id number] GIOVANNI SILVEIRA Self - patient is the insured Medical (General) History Medical History History ICD Code HTN Leslie's Negative colonoscopy with Dr. Galdino goodman her early 50's Denies [place],DM,CVA,Lung disease,renal dise ase Surgical History Surgery Date(Month/Year) L4-L5 fusion 2011 Right carpal tunnel 2006
== END 2024-08-10 09:46 | disposition home or self-care (01) ==
LOC: HO.MAMMO 09:45
PROVIDERS: PCP Internal Medicine; Visit Provider Internal Medicine
DX: Z12.31 Encounter for screening mammogram for malignant neoplasm of breast (principal)
CPT/HCPCS: 77063; 77067

== ENCOUNTER → 2024-08-10 10:00 | Outpatient (BNV) | payer BC, SELFPAY | PROVIDERS: PCP Internal Medicine; Visit Provider Internal Medicine | DX: Z12.31 Encounter for screening mammogram for malignant neoplasm of breast (principal) | CPT/HCPCS: 77063; 77067 ==

== ENCOUNTER 2024-08-18 10:21 | Emergency (ER) | payer BC, SELFPAY ==
--- NOTE | ~2024-08-18 | XR_ITS ---
CLINICAL HISTORY: pain. old inj 4 view right knee Comparison: None Findings: Bones intact. No dislocations. Mild medial compartment joint space narrowing. No joint effusion. No radiopaque foreign body. IMPRESSION: 1. No acute findings. 2. Mild degenerative changes. This document has been electronically signed by: Rosalino Anderson MD on 08/18/2024 10:58:41
[2024-08-18 10:35] VITALS: BP 159/84; PULSE 95; RESP 16; TEMP 36.8; O2SAT 97; BMI 27.1
--- NOTE | 2024-08-18 11:29 | ED.LOWEXIN ---
HPI - Extremity Injury (Lower) General Chief Complaint: Extremity Injury, Lower Stated Complaint: knee inj Time Seen by Provider: 08/18/24 11:05 Source: patient Mode of arrival: ambulatory Limitations: no limitations History of Present Illness ED Provider: Sherry Miller APRN HPI Narrative: This is a 69-year-old female with a history of colon cancer status post resection, hypertension, hypothyroidism who presents to the emergency room with complaints of right-sided knee pain since yesterday. Patient reports that she had a twisting injury of the knee with subsequent pain along the inner aspect of the knee which is worsened with walking up stairs and bending the knee. She reports in February she had an injury of the same knee and which she hit the corner of her knee on a bed frame. This did improve with time. She did not see her primary care or orthopedic. Since her injury yesterday she has taken Advil several times. She has not use any other measures at home. She denies any associated swelling, redness, numbness, tingling, fevers or chills. Related Data Home Medications ?Medication ?Instructions ?Recorded ?Confirmed calcium 500 mg (as 1 tab PO DAILY 02/03/23 06/27/24 carbonate)-vitamin D3 10 mcg (400 unit) tablet (Calcium 500 + D) tubokhnt-ydon-tmgl 8 mg-folic 400 1 tab PO DAILY 02/03/23 06/27/24 mcg-K 50 mcg-lutein 300 mcg tablet (Multivitamin Women 50 Plus) Previous Rx's ?Medication ?Instructions ?Recorded hydrochlorothiazide 25 mg tablet 25 mg PO DAILY #90 tabs 06/27/24 levothyroxine 75 mcg tablet 75 mcg PO DAILY@0600 #90 tabs 06/27/24 Allergies Allergy/AdvReac Type Severity Reaction Status Date / Time No Known Allergies Allergy Mild N/A Verified 08/18/24 10:37 Review of Systems Review of Systems: Yes all other systems are reviewed and are negative Constitutional: Constitutional: Reports no additional constitutional complaints, Denies body ache(s), Denies chills, Denies fever(s), Denies headache(s) and Denies weakness Eyes: Eyes: Reports no additional eye complaints and Denies change in vision ENT: Reports system reviewed and no additional complaints, except as documented, Denies dizziness, Denies headache(s), Denies nasal congestion, Denies nasal discharge and Denies neck pain Cardiovascular: Cardiovascular: Reports no additional cardiovascular complaints, Denies chest pain, Denies leg edema and Denies dyspnea Respiratory: Respiratory: Reports no additional respiratory complaints, Denies cough and Denies dyspnea Gastrointestinal: Gastrointestinal: Reports no additional gastrointestinal complaints, Denies abdominal pain, Denies diarrhea, Denies nausea and Denies vomiting Genitourinary: Genitourinary: Reports no additional female genitourinary complaints and Denies urinary incontinence Musculoskeletal: Musculoskeletal: Reports no additional musculoskeletal complaints, Denies back pain, Reports arthralgias, Denies joint swelling, Denies limited range of motion, Denies neck pain, Denies numbness and Denies tingling Integumentary/Breasts: Skin/Breast: Reports system reviewed and no additional complaints, except as docu and Denies rash Neurologic: Reports system reviewed and no additional complaints, except as documented, Denies Abnormal speech present, Denies dizziness, Denies headache(s), Denies numbness, Denies tingling and Denies weakness PMFSH Past Medical History Attestation statement: The following information was validated with the patient. 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 Colon cancer GERD (gastroesophageal reflux disease) Restless leg Leslie's disease Vitiligo Neuroendocrine neoplasm of gastrointestinal tract Hypothyroidism Hypertension Surgical History Hx of colonoscopy History of carpal tunnel release History of spinal surgery Family History Family History Father Melanoma Mother Alive and well Paternal Grandmother Uterine cancer Sister Pheochromocytoma Social History Social History Household Members: Spouse Housing: House Are you a primary doggy daycare activities director to a significant other at home: No Do you presently have visiting nurse or other home services: No Alcohol intake: current Alcohol intake frequency: a few times a month Patient Tobacco Use Status: Former Tobacco user Tobacco use type: Cigarette e-Cigarette/Vaping Use: Never Used Second Hand Smoke Exposure: No Advance Directives: Yes Advance Directives Information Provided: Yes Advance Directives on File: No service: No Current occupational status: employed Cognitive needs: No Hearing needs: No Vision needs: Yes Physical Exam Vital Signs: Vital Signs: Last Vital Signs Temp 98.3 F 08/18/24 10:35 Pulse 95 08/18/24 10:35 Resp 16 08/18/24 10:35 BP 159/84 H 08/18/24 10:35 Pulse Ox 97 08/18/24 10:35 O2 Del Method Room Air 08/18/24 10:35 BMI result Body Mass Index 27.1 Const: General: cooperative, healthy appearing, comfortable and no acute distress Orientation/consciousness: patient oriented x3 Limitations: no limitations HEENT: Head: Yes normal to inspection Ears: hearing grossly normal bilaterally General nose exam: Normal external nose present Face and sinus: Yes normal facial exam Mouth: Normal oral and palatal mucosa present Throat: Yes posterior oropharynx normal Eyes: General: appearance normal, both eyes and all related structures Pupils: Equal, round and reactive pupils present Neck: Neck: Yes normal visual inspection Chest: Chest palpation & inspection: normal inspection of the chest Resp: Effort & Inspection: normal respiratory effort Auscultation: clear to auscultation bilaterally Cardio: Rate: regular rate Rhythm: regular rhythm Peripheral pulses: Peripheral pulses 2+ throughout GI: Inspection: Yes normal to inspection Palpation (GI): Soft to palpation and nontender Auscultation: normal bowel sounds Back/Spine/Pelvis: Thoracic/Lumbar Spine: thoracic and lumbar spine normal to inspection Skin: General skin exam: no rashes or lesions noted Neuro: General: patient oriented x3, no focal motor deficits and normal sensation to monofilament Cranial nerves: Yes Equal, round and reactive pupils present Cognition (Neuro): normal cognition Speech: No Abnormal speech present Gait exam (Neuro): Normal gait present Motor exam (neuro): 5/5 motor strength present throughout Extrem: Other: There is pain on palpation to the medial aspect of the right knee. There is full flexion and extension of the knee. No ligamental laxity. No pain on palpation elsewhere across the knee. Full active and passive range of motion of the distal extremities. 2+ DP and PT pulses. No calf swelling or pain on palpation. No redness or warmth noted. General: Yes normal to inspection Course Course Course Narrative: 1130-x-ray shows IMPRESSION: 1. No acute findings. 2. Mild degenerative changes. Reviewed findings with patient. Will place patient Aldo wrap. Recommend follow-up with primary care doctor and/or Orthopedics depending on insurance. Reviewed worrisome signs and symptoms of when to return to the emergency room. Comfortable plan for discharge home. Medical Decision Making Medical Decision Making MDM Narrative: This is a 69-year-old female with a history of colon cancer status post resection, hypertension, hypothyroidism who presents to the emergency room with complaints of right-sided knee pain since yesterday. Patient reports that she had a twisting injury of the knee with subsequent pain along the inner aspect of the knee which is worsened with walking up stairs and bending the knee. She reports in February she had an injury of the same knee and which she hit the corner of her knee on a bed frame. This did improve with time. She did not see her primary care or orthopedic. Since her injury yesterday she has taken Advil several times. She has not use any other measures at home. She denies any associated swelling, redness, numbness, tingling, fevers or chills. There is pain on palpation to the medial aspect of the right knee. There is full flexion and extension of the knee. No ligamental laxity. No pain on palpation elsewhere across the knee. Full active and passive range of motion of the distal extremities. 2+ DP and PT pulses. No calf swelling or pain on palpation. No redness or warmth noted. Will obtain x-rays. Differential Diagnosis Differential Diagnoses: The differential diagnosis associated with the presentation includes Sprain, strain, fracture, ligamental injury Low suspicion for vascular injury, complex fracture or dislocation, DVT Admission/Observation Consideration of admission/observation: Escalation of care including admission/observation considered Low suspicion for vascular injury, complex fracture, dislocation or DVT requiring advanced imaging and or urgent orthopedic consultation and or admission Independent Interpretation I performed an independent interpretation of an: Plain X-Ray Interpretation: I independently viewed the x-rays and agree with the radiology report Radiology Impression Discussion of test interpretation with radiology: I have reviewed the radiologist's reading. Radiologist Impression: [address] [address] XRay Report Signed Patient: Aparna Gilmore MR#: [id number] : 1955 Acct:[id number] Age/Sex: 69 / F ADM Date: 08/18/24 Loc: HO.ED Attending Dr: Ordering Physician: Generic ED Physician Date of Service: 08/18/24 Procedure(s): XR knee RT 4V Accession Number(s): [id number] cc: Generic ED Physician; Lynn Schreiber MD~ CLINICAL HISTORY: pain. old inj 4 view right knee Comparison: None Findings: Bones intact. No dislocations. Mild medial compartment joint space narrowing. No joint effusion. No radiopaque foreign body. IMPRESSION: 1. No acute findings. 2. Mild degenerative changes. This document has been electronically signed by: Rosalino Anderson MD on 08/18/2024 10:58:41 Discharge Plan Discharge Clinical Impression: Right knee sprain Patient Disposition: Home, Self-Care Instructions: Knee Sprain (ED), How to Use an Elastic Bandage (ED), R.I.C.E. Treatment (ED) Additional Instructions: Continue either ibuprofen or naproxen for pain Elevate the extremity Use the Aldo wrap for comfort Call your primary care doctor if you need a referral for Orthopedics. Prescriptions: No Action calcium carbonate-vitamin D3 [Calcium 500 + D] 500 mg-10 mcg (400 unit) Tablet 1 tab PO DAILY Multivitamin Women 50 Plus 8 mg iron-400 mcg-50 mcg Tablet 1 tab PO DAILY hydrochlorothiazide 25 mg tablet 25 mg PO DAILY Qty: 90 0RF levothyroxine 75 mcg tablet 75 mcg PO DAILY@0600 Qty: 90 0RF Referrals: [facility] [Provider Group] - 1 week Print Language: Chinese
[2024-08-18 12:15] VITALS: BP 159/84; PULSE 95; RESP 16; TEMP 36.8; O2SAT 97
== END 2024-08-18 12:15 | disposition home or self-care (01) ==
PROVIDERS: Emergency Provider Emergency Medicine; PCP Internal Medicine
DX: S83.91XA Sprain of unspecified site of right knee, initial encounter (principal); X58.XXXA Exposure to other specified factors, initial encounter; Y93.9 Activity, unspecified; Y92.9 Unspecified place or not applicable; Y99.9 Unspecified external cause status; M25.561 Pain in right knee; I10 Essential (primary) hypertension; E03.9 Hypothyroidism, unspecified
CPT/HCPCS: 73564; 99282; 99283

== ENCOUNTER → 2024-08-18 10:40 | Outpatient (BNV) | payer BC, SELFPAY | PROVIDERS: PCP Internal Medicine; Visit Provider Radiology Vascular & Interventional Radiology | DX: M25.561 Pain in right knee (principal) | CPT/HCPCS: 73564 ==

== ENCOUNTER 2024-09-11 08:29 | Outpatient (REF) | payer BC, SELFPAY ==
--- NOTE | ~2024-09-11 | XR_ITS ---
EXAMINATION: XR KNEE 1-2 VIEWS RIGHT HISTORY: M25.569 - Pain in unspecified knee COMPARISON: Comparison is made with the prior examination dated 08/18/2024. FINDINGS: Standing AP views of both knees and an additional sunrise patellar view of the right knee are submitted. Osseous mineralization is normal. There is no fracture or dislocation. The joint spaces are preserved. The soft tissues are unremarkable. XR/XR knee RT 2V IMPRESSION: Unremarkable examination of the right knee. Electronically signed by: Tom Garcia MD 09/11/2024 09:15 AM EDT
== END 2024-09-11 08:30 | disposition home or self-care (01) ==
LOC: HO.HOSX 08:29
PROVIDERS: PCP Internal Medicine; Visit Provider Physician Assistant
DX: M25.561 Pain in right knee (principal); M17.11 Unilateral primary osteoarthritis, right knee
CPT/HCPCS: 73560

== ENCOUNTER 2024-09-11 08:29 | Outpatient (AMB) | payer BC, SELFPAY ==
--- NOTE | 2024-09-11 08:42 | MHC.OFFVIS ---
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 Patient reports Patient reports she had a twisting injury with subsequent pain along the medial aspect of the knee. Her pain is worsened with walking up stairs and bending the knee. She reports back in February she had an injury on same knee, when she hit the corner of her knee on a bed frame. She mentions that today her pain is better today but she is feeling some soreness in the medial aspect of her knee. Patient took Advil with mild relief. 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 She reported an onset in August, attributed to an incident that impaired her ability to walk and necessitated an emergency room visit. Since that episode, the condition has shown improvement. The patient denies any difficulties walking long distances or negotiating stairs. Notably, she reports using an CLARKE bandage effectively until recently to provide knee support during the daytime. She continues to manage symptoms with esak-yqn-ymvljjj anti-inflammatory agents like Advil. 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 Colon cancer GERD (gastroesophageal reflux disease) Restless leg Leslie's disease Vitiligo Neuroendocrine neoplasm of gastrointestinal tract Hypothyroidism Hypertension Surgical History Hx of colonoscopy History of carpal tunnel release History of spinal surgery Family History Father Melanoma Mother Alive and well Paternal Grandmother Uterine cancer Sister Pheochromocytoma Social History Household Members: Spouse Housing: House Are you a primary district manager primary care sales to a significant other at home: No Do you presently have visiting nurse or other home services: No Alcohol intake: current Alcohol intake frequency: a few times a month Patient Tobacco Use Status: Former Tobacco user Tobacco use type: Cigarette e-Cigarette/Vaping Use: Never Used Second Hand Smoke Exposure: No service: No Current occupational status: employed Cognitive needs: No Hearing needs: No Vision needs: Yes Review of Systems Const All systems reviewed & are unremarkable except as noted in HPI and below Physical Exam Vital Signs: BMI result Body Mass Index 27.1 Const General: cooperative and no acute distress Orientation/consciousness: patient oriented x3 Resp Effort & Inspection: normal respiratory effort and able to speak in complete sentences Cardio Peripheral pulses: Peripheral pulses 2+ throughout Neuro General: patient oriented x3 Extrem Other: Right knee skin intact, no erythema or joint effusion. Tenderness along the medial joint line. ROM full with crepitus. Negative steinmans. No ligamentous laxity. NVI. Results Reviewed Results Reviewed: Xrays were obtained in the office today and personally reviewed by me of the right knee show mild medial compartment oa with pf oa Assessment & Plan Assessment & Plan (1) Osteoarthritis of right knee: Code(s): M17.11 - Unilateral primary osteoarthritis, right knee Category: Medical Plan: Management for the right knee osteoarthritis and patellar tracking disorder includes recommendation of activity modification and possible use of a supportive knee brace which she was offered today but declined. The patient may use NSAIDs for symptomatic relief, considering their prior efficacy. We discussed cortisone injections as a future possibility if activity-related flare-ups worsen. She will contact our office if symptoms persist or worse, jessy sanchez. Patient was informed and verbally consented to the use of an ambient scribe for clinic note documentation during this visit. Orders: Orders XR knee RT 2V Today M25.569 - Pain in unspecified knee Coding Level of Care Code New Pt Level 3 (55499) Complex EM visit Add On G2211 Diagnoses Osteoarthritis of right knee M17.11
--- OUTSIDE RECORDS SUMMARY | 2024-09-11 08:44 | XMS_ITS | Patient Health Record ---
Author Organization [facility] Address [address] [place] [address] Care Team Providers Care Assurance Services Manager Health Care Name Role Phone Michael Valadez MD Primary Care Provider Tom Llamas [phone] Allergies No Known Allergies Reason For Referral [...] Problem Status W/U Status Risk Notes Problem 528806173 Colon cancer screening (Z12.11) Active confirmed Problem Diverticular disease of colon (519956878) Diverticulosis of large intestine without perforation or abscess without bleeding (K57.30) Active confirmed Problem 153092458828125 Preprocedural examination (Z01.818) Active confirmed Plan Of Treatment Pending Test Test Name Order Date Pathology 02/06/2023 Future Test Test Name Order Date COLONOSCOPY 09/07/2022 Insurance Providers Payer Name Payer Address Payer Phone Subscriber Number Group Number Insured Name Patient Relationship to Insured Coverage Start Date Coverage End Date [facility] [address] [place] [phone] [id number] GIOVANNI SILVEIRA Self - patient is the insured Medical (General) History Medical History History ICD Code HTN Leslie's Negative colonoscopy with Dr. Galdino goodman her early 50's Denies [place],DM,CVA,Lung disease,renal dise ase Surgical History Surgery Date(Month/Year) L4-L5 fusion 2011 Right carpal tunnel 2006
[2024-09-11 08:48] VITALS: BMI 27.1
== END 2024-09-11 09:08 | disposition home or self-care (01) ==
LOC: HO.HOS 08:29
PROVIDERS: PCP Internal Medicine; Visit Provider Physician Assistant
DX: M17.11 Unilateral primary osteoarthritis, right knee (principal)
CPT/HCPCS: 99203

== ENCOUNTER → 2024-09-11 08:37 | Outpatient (BNV) | payer BC, SELFPAY | PROVIDERS: PCP Internal Medicine; Visit Provider Radiology Diagnostic Radiology | DX: M25.561 Pain in right knee (principal) | CPT/HCPCS: 73560 ==

== ENCOUNTER 2024-10-10 14:23 | Outpatient (REF) | payer BC, SELFPAY ==
[2024-10-15 13:00] LABS: HPV Genotype 16 Negative (Negative); HPV Genotype 18 Negative (Negative); HPV High Risk Negative (Negative)
== END 2024-10-10 14:24 | disposition home or self-care (01) ==
LOC: HO.LNP 14:23
PROVIDERS: PCP Internal Medicine; Visit Provider Advanced Practice Midwife
DX: Z01.419 Encounter for gynecological examination (general) (routine) without abnormal findings (principal)
CPT/HCPCS: 87626; 88175

== ENCOUNTER 2024-10-10 14:23 | Outpatient (AMB) | payer BC, SELFPAY ==
--- NOTE | 2024-10-10 14:43 | A.OFFVIS_ITS ---
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 She is doing well with grey goods marker concerns: History of lichen sclerosus, seen by Dermatology and recommended she stay here for her vulvar lichen treatment. Vaginal dryness, uses [place] jelly. Currently sexually active. STI testing offered; she accepts. Attempting to eat a healthy diet with calcium and vitamin D and stays active with exercise. Last pap smear; 5-6 years ago, negative. Last mammogram; 2024. S/P colon cancer, high surveillance. 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 Colon cancer GERD (gastroesophageal reflux disease) Restless leg Leslie's disease Vitiligo Neuroendocrine neoplasm of gastrointestinal tract Hypothyroidism Hypertension Surgical History History of colon surgery Hx of colonoscopy History of carpal tunnel release History of spinal surgery Family History Father Melanoma Mother Alive and well Paternal Grandmother Uterine cancer Sister Pheochromocytoma Social History Household Members: Spouse Housing: House Are you a primary date night caregiver to a significant other at home: No Do you presently have visiting nurse or other home services: No Alcohol intake: current Alcohol intake frequency: a few times a month Patient Tobacco Use Status: Former Tobacco user Tobacco use type: Cigarette e-Cigarette/Vaping Use: Never Used Second Hand Smoke Exposure: No service: No Current occupational status: employed Cognitive needs: No Hearing needs: No Vision needs: Yes Female Reproductive History Menstrual Menopause type: natural Total pregnancies: 2 Full term: 2 Number of Living Children: 2 Date of last pap smear: 04/22/16 (neg pap and hpv) Date of Mammogram: 08/10/24 (Birad 1) Review of Systems Const All systems reviewed & are unremarkable except as noted in HPI and below Reports as per HPI Eyes Reports no additional complaints ENT Reports no additional complaints Card Reports no additional complaints Resp Reports no additional complaints GI Reports as per HPI and Reports no additional complaints Reports as per HPI Musc Reports no additional complaints Skin/Breast Reports as per HPI Neuro Reports no additional complaints Psych Reports no additional complaints Endo Reports no additional complaints Antelmo/Lymph Reports no additional complaints Aller/Immun Reports no additional complaints Physical Exam Vital Signs: Last Vital Signs BP 128/74 10/10/24 14:44 BMI result Body Mass Index 26.9 Const General: cooperative, healthy appearing, no acute distress, well developed and alert Orientation/consciousness: patient oriented x3 HEENT Head: Yes normal to inspection Eyes General: appearance normal, both eyes and all related structures Neck Neck: Yes normal visual inspection Thyroid: Thyroid normal Chest Chest palpation & inspection: normal inspection of the chest and other (no puckering, dimpling, peau de orange, retraction, discharge, masses) Breast/axilla inspection: normal inspection of the breasts Breast/axilla palpation: normal palpation of the breasts Resp Effort & Inspection: normal respiratory effort GI Inspection: Yes normal to inspection Palpation (GI): Soft to palpation Rectal Exam - Female: deferred Other: External: Hypopigmentation of perineal body, slight thickening, no excoriations or lesions, scattered bilateral labial minora majora hypopigmentation, no lesion General: Yes bladder normal to palpation External Female Exam: normal external appearance and normal appearance of the urethra Speculum Exam - Vagina: normal appearance of the vagina, normal palpation, normal vaginal discharge and vagina atrophic Speculum Exam - Cervix: normal appearance of the cervix and normal palpation Bimanual exam- vagina & uterus: normal bimanual exam, normal palpation, uterine size normal, bladder normal to palpation, normal palpation and non-tender Bimanual Exam- Adnexa, other: no masses Skin General skin exam: no rashes or lesions noted Rashes: no rashes Neuro General: patient oriented x3 Cognition (Neuro): normal cognition Extrem General: Yes normal to inspection Psych Attitude: cooperative Thought process: Normal thought process present Assessment & Plan Assessment & Plan (1) Encounter for well woman exam with routine gynecological exam: Code(s): Z01.419 - Encounter for gynecological examination (general) (routine) without abnormal findings Category: Medical Plan: Discussed: Current recommendations for pap smears per ASCCP guidelines. Breast awareness, periodic self breast exams and yearly mammogram. Maintain a healthy lifestyle, well balanced diet including Calcium 1,200 mg and Vitamin D 600 IU daily, and routine exercise. Contact the office with any postmenopausal bleeding. Patient verbalizes understanding and agrees to the plan of care. She was given opportunity to ask questions and all questions were answered to the best of my ability. RTO in 1 year for annual grey goods marker exam. This note is constructed using voice recognition software. While every effort has been made to ensure accuracy, stripping machine operator errors may have been included. (2) Lichen sclerosus of vulva: Code(s): N90.4 - Leukoplakia of vulva Category: Medical Plan Counseled regarding medication use and tapering. Rx sent to pharmacy. Recommend skin check in 2 months and biopsy if there is any concerns same-day visit. Call the office sooner if she has any other concerns. The patient expressed understanding and agreement with the plan of care. All of her questions and concerns were addressed to the best of my ability. This note is constructed using voice recognition software. While every effort has been made to ensure accuracy, stripping machine operator errors may have been included. Orders: Orders HPV High risk Today Z01.419 - Encounter for gynecological examination (general) (routine) without abnormal findings Pap Smear Today Z01.419 - Encounter for gynecological examination (general) (routine) without abnormal findings Medications: New clobetasol 0.05% apply a thin coat to the area at bedtime x 2 weeks then every other day for 2 weeks, then twice a week 1 appl topical DAILY 45 grams 1RF Coding Level of Care Code New Pt Prev Care >65yr (83113) Diagnoses Encounter for well woman exam with routine gynecological exam Z01.419 Lichen sclerosus of vulva N90.4
[2024-10-10 14:44] VITALS: BP 128/74; BMI 26.9
--- OUTSIDE RECORDS SUMMARY | 2024-10-10 17:00 | XMS_ITS | Patient Health Record ---
Author Organization [facility] Address [address] [place] [address] Care Team Providers Care Side Door Worker Name Role Phone Michael Valadez MD Primary Care Provider Tom Llamas [phone] Allergies No Known Allergies Reason For Referral [...] Problem Status W/U Status Risk Notes Problem [id number] Colon cancer screening (Z12.11) Active confirmed Problem Diverticular disease of colon (349075026) Diverticulosis of large intestine without perforation or abscess without bleeding (K57.30) Active confirmed Problem [id number] Preprocedural examination (Z01.818) Active confirmed Plan Of Treatment Pending Test Test Name Order Date Pathology 02/06/2023 Future Test Test Name Order Date COLONOSCOPY 09/07/2022 Insurance Providers Payer Name Payer Address Payer Phone Subscriber Number Group Number Insured Name Patient Relationship to Insured Coverage Start Date Coverage End Date [facility] [address] [place] [address] [phone] [id number] GIOVANNI SILVEIRA Self - patient is the insured Medical (General) History Medical History History ICD Code HTN Leslie's Negative colonoscopy with Dr. Galdino goodman her early 50's Denies [place],DM,CVA,Lung disease,renal dise ase Surgical History Surgery Date(Month/Year) L4-L5 fusion 2011 Right carpal tunnel 2006
== END 2024-10-10 15:40 | disposition home or self-care (01) ==
LOC: HO.HWS 14:23
PROVIDERS: PCP Internal Medicine; Visit Provider Advanced Practice Midwife
DX: Z01.419 Encounter for gynecological examination (general) (routine) without abnormal findings (principal); N90.4 Leukoplakia of vulva
CPT/HCPCS: 99387; 99459

== ENCOUNTER 2024-11-11 13:50 | Outpatient (REF) | payer BC, SELFPAY ==
--- NOTE | ~2024-11-11 | CT_ITS ---
EXAMINATION: CT ABDOMEN PELVIS WITH IV CONTRAST HISTORY: Z85.038 - Personal history of other malignant neoplasm of large intestine COMPARISON: Comparison is made with the prior examination dated 08/01/2023. TECHNIQUE: CT scan of the abdomen and pelvis was performed following administration of 85 mL Omnipaque 350 using standard departmental protocol. Coronal and sagittal reformatted images were generated and reviewed. Oral contrast material was not administered at the request of the referring physician. This CT exam was performed with one or more of the following dose reduction techniques: automated exposure control, adjustment of the mA and/or kV according to patient size, use of iterative reconstruction technique. DLP: 340 mGy-cm FINDINGS: LOWER CHEST: The visualized lung bases are clear. There is no pleural effusion. CARDIOVASCULATURE: The heart is normal in size. There is no pericardial effusion. LIVER: The liver is normal in size and contour. Again seen are subcentimeter hypodense foci in the left lobe without change which likely represent cysts. The hepatic and portal veins are patent. GALLBLADDER / BILE DUCTS: The gallbladder is unremarkable. There is no intra or extrahepatic biliary ductal dilatation. SPLEEN: The spleen is normal in size. There is a stable subcentimeter hypodensity at the posterior aspect of the spleen. PANCREAS: The pancreas is unremarkable in appearance. ADRENAL GLANDS: Within normal limits. KIDNEYS/RETROPERITONEUM: No renal calculi are identified. There is no hydronephrosis. No renal masses are identified. LYMPH NODES: No abdominal or pelvic lymphadenopathy. VASCULATURE: The abdominal aorta demonstrates atherosclerotic calcification, but is normal in caliber. MESENTERY/PERITONEUM: No free fluid. No masses. There is no free intraperitoneal gas. STOMACH: The stomach is unremarkable. SMALL BOWEL: The small bowel is normal in caliber. COLON: The patient is status post ascending colectomy. There is an area of possible wall thickening involving the proximal transverse colon (series 3, image 35). APPENDIX: The appendix is surgically absent. URINARY BLADDER/PELVIC ORGANS: The urinary bladder is collapsed, limiting evaluation. The uterus is unremarkable. BONES / SOFT TISSUES: The patient is status post posterior fusion of L4 and L5. CT/CT abdomen pelvis w IV con IMPRESSION: Status post ascending colectomy. Possible area of wall thickening in the proximal transverse colon. This could be evaluated with colonoscopy or barium enema. Electronically signed by: oTm Garcia MD 11/11/2024 03:07 PM EDT RP
--- OUTSIDE RECORDS SUMMARY | 2024-11-11 14:16 | XMS_ITS | Patient Health Record ---
Author Organization [facility] Address [address] [place] [address] Care Team Providers Care Computer Methods Analyst Name Role Phone Michael Valadez MD Primary Care Provider Tom Llamas [phone] Allergies No Known Allergies Reason For Referral [...] Problem Status W/U Status Risk Notes Problem [id number] Colon cancer screening (Z12.11) Active confirmed Problem Diverticular disease of colon (265122874) Diverticulosis of large intestine without perforation or abscess without bleeding (K57.30) Active confirmed Problem 436092069525097 Preprocedural examination (Z01.818) Active confirmed Plan Of Treatment Pending Test Test Name Order Date Pathology 02/06/2023 Future Test Test Name Order Date COLONOSCOPY 09/07/2022 Insurance Providers Payer Name Payer Address Payer Phone Subscriber Number Group Number Insured Name Patient Relationship to Insured Coverage Start Date Coverage End Date [facility] [address] [place] [address] [id number] GIOVANNI SILVEIRA Self - patient is the insured Medical (General) History Medical History History ICD Code HTN Leslie's Negative colonoscopy with Dr. Galdino goodman her early 50's Denies [place],DM,CVA,Lung disease,renal dise ase Surgical History Surgery Date(Month/Year) L4-L5 fusion 2011 Right carpal tunnel 2006
[2024-11-11] MEDS: iohexoL 350 MG/ML 100 ML INFUS..BTL IV (14:55)
== END 2024-11-11 13:51 | disposition home or self-care (01) ==
LOC: HO.CT 13:50
PROVIDERS: PCP Internal Medicine; Visit Provider Surgery
DX: Z85.038 Personal history of other malignant neoplasm of large intestine (principal)
CPT/HCPCS: 74177; Q9967

== ENCOUNTER → 2024-11-11 13:54 | Outpatient (BNV) | payer BC, SELFPAY | PROVIDERS: PCP Internal Medicine; Visit Provider Radiology Diagnostic Radiology | DX: Z85.038 Personal history of other malignant neoplasm of large intestine (principal) | CPT/HCPCS: 74177 ==

== ENCOUNTER 2024-11-25 11:30 | Outpatient (AMB) | payer BC, SELFPAY ==
--- NOTE | 2024-11-25 11:40 | MHC.OFFVIS ---
Vital Signs 11/25/24 11:43 Height 5 ft 3 in Weight 155 lb BMI 27.5 BP 156/79 H Blood Pressure Location Rt brachial Position Sitting Pulse 88 Intake Visit Reasons: ct results 11/11/24 Intake Note: Patient here to discuss abdomen pelvis CT done on 11-11-2024. Hx of neuroendocrine tumor/ Rt colon resection 03-02-2023. Prospecting Observer Required: No Accompanied by: Self / Same As Patient Allergies No Known Allergies Allergy (Mild, Verified 11/25/24 11:44) N/A Medication List - Last Reconciled 11/25/24 by Mg Ahmadi MD calcium carbonate-vitamin D3 500 mg-10 mcg (400 unit) (Calcium 500 + D) 1 tab PO DAILY clobetasol 0.05% 1 appl topical DAILY hydrochlorothiazide 25 mg PO DAILY levothyroxine 75 mcg PO DAILY@0600 mometasone 0.1% topical tfgywlpm-oow-rmhi-FA-vit K-lut 8 mg iron-400 mcg-50 mcg (Multivitamin Women 50 Plus) 1 tab PO DAILY HPI HPI ct results 11/11/24: Details: She is here for follow-up for her history of a neuroendocrine tumor, 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 She had undergone right colon resection last February, She continues to feel well overall She denies any GI complaints. She denies any abdominal pain. I had sent her for a surveillance CAT scan and she is here to discuss this. 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 Colon cancer GERD (gastroesophageal reflux disease) Restless leg Leslie's disease Vitiligo Neuroendocrine neoplasm of gastrointestinal tract Hypothyroidism Hypertension Surgical History History of colon surgery Hx of colonoscopy History of carpal tunnel release History of spinal surgery Family History Father Melanoma Mother Alive and well Paternal Grandmother Uterine cancer Sister Pheochromocytoma Social History Household Members: Spouse Housing: House Are you a primary account executive healthcare to a significant other at home: No Do you presently have visiting nurse or other home services: No Alcohol intake: current Alcohol intake frequency: a few times a month Patient Tobacco Use Status: Former Tobacco user Tobacco use type: Cigarette e-Cigarette/Vaping Use: Never Used Second Hand Smoke Exposure: No service: No Current occupational status: employed Cognitive needs: No Hearing needs: No Vision needs: Yes Review of Systems Const Denies chills and Denies fever(s) Card Denies chest pain, Denies dyspnea and Denies dyspnea on exertion Resp Denies cough, Denies dyspnea and Denies dyspnea on exertion GI Denies hematochezia and Denies change in bowel habits Denies hematuria Musc Denies back pain and Denies limited range of motion Neuro Denies focal weakness and Denies convulsions Psych Denies depression and Denies mood swings Physical Exam Vital Signs: Last Vital Signs Pulse 88 11/25/24 11:43 BP 156/79 H 11/25/24 11:43 BMI result Body Mass Index 27.5 Const General: comfortable and no acute distress Resp Effort & Inspection: normal respiratory effort Cardio Rate: regular rate GI Palpation (GI): Soft to palpation, not firm, nontender and no guarding Assessment & Plan Assessment & Plan (1) History of well differentiated neuroendocrine tumor of colon: Code(s): Z85.038 - Personal history of other malignant neoplasm of large intestine Category: Medical Plan: She is doing well overall. I have reviewed her surveillance CAT scan which was done last 11/11/2024. There is no suggestion of any new lesion. There is question of wall thickening in the proximal transverse colon. I explained to her that this unlikely to represent any recurrence Since it has been 2 years since her resection, I told her that may be good for her to have another colonoscopy. I will let Dr. Roberts know about this I will see her again in the office next year. She continues to follow up with Dr. Mejia as well. Coding Level of Care Code Est Pt Level 3 (68506) Diagnoses History of well differentiated neuroendocrine tumor of colon Z85.038
[2024-11-25 11:43] VITALS: BP 156/79; PULSE 88; BMI 27.5
--- OUTSIDE RECORDS SUMMARY | 2024-11-25 12:38 | XMS_ITS | Patient Health Record ---
Author Organization [facility] Address [address] [place] [address] Care Team Providers Care Sheet Taker Name Role Phone Michael Valadez MD Primary Care Provider Tom Llamas [phone] Allergies No Known Allergies Reason For Referral [...] Problem Status W/U Status Risk Notes Problem [id number] Colon cancer screening (Z12.11) Active confirmed Problem Diverticulosis o f large intestine without perforation or abscess without bleeding (K57.30) Active confirmed Problem [id number] Preprocedural examination (Z01.818) Active confirmed Plan Of Treatment Pending Test Test Name Order Date Pathology 02/06/2023 Future Test Test Name Order Date COLONOSCOPY 09/07/2022 Insurance Providers Payer Name Payer Address Payer Phone Subscriber Number Group Number Insured Name Patient Relationship to Insured Coverage Start Date Coverage End Date [facility] [address] [facility] [place] [address] [id number] GIOVANNI SILVEIRA Self - patient is the insured Medical (General) History Medical History History ICD Code HTN Leslie's Negative colonoscopy with Dr. Galdino goodman her early 50's Denies [place],DM,CVA,Lung disease,renal dise ase Surgical History Surgery Date(Month/Year) L4-L5 fusion 2011 Right carpal tunnel 2006
== END 2024-11-25 11:50 | disposition home or self-care (01) ==
LOC: HO.HGS 11:31
PROVIDERS: PCP Internal Medicine; Visit Provider Surgery
DX: Z85.038 Personal history of other malignant neoplasm of large intestine (principal)
CPT/HCPCS: 99213

== ENCOUNTER 2024-12-11 14:54 | Outpatient (AMB) | payer BC, SELFPAY ==
--- NOTE | 2024-12-11 15:05 | A.OFFVIS_ITS ---
Vital Signs 12/11/24 15:06 Height 5 ft 3 in Weight 155 lb BMI 27.5 BP 132/72 Blood Pressure Location Lt brachial Position Sitting Intake Visit Reasons: skin check/? skin biopsy/30 mins Intake Note: here to check skin on vulva and has no complaints of itching or burning Information Interpreted: clinical only (Evelyn) Mechanical Design Engineer Products: Mechanical Design Engineer Products Present Accompanied by: Self / Same As Patient Allergies No Known Allergies Allergy (Mild, Verified 12/11/24 15:08) N/A Medication List - Last Reconciled 12/11/24 by Clary Taveras LPN calcium carbonate-vitamin D3 500 mg-10 mcg (400 unit) (Calcium 500 + D) 1 tab PO DAILY clobetasol 0.05% 1 appl topical DAILY hydrochlorothiazide 25 mg PO DAILY levothyroxine 75 mcg PO DAILY@0600 mometasone 0.1% topical scwhrrkr-kvk-rvyh-FA-vit K-lut 8 mg iron-400 mcg-50 mcg (Multivitamin Women 50 Plus) 1 tab PO DAILY Patient : No HPI Comments Details: Patient is here today for a skin check due to history of lichen sclerosus. Using medication topically twice weekly. She reports her symptoms have resolved. 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 Colon cancer GERD (gastroesophageal reflux disease) Restless leg Leslie's disease Vitiligo Neuroendocrine neoplasm of gastrointestinal tract Hypothyroidism Hypertension Surgical History History of colon surgery Hx of colonoscopy History of carpal tunnel release History of spinal surgery Family History (Updated 12/11/24 @ 16:05 by Clary Taveras LPN) Father Melanoma Mother Urethra cancer Paternal Grandmother Uterine cancer Sister Pheochromocytoma Social History Household Members: Spouse Housing: House Are you a primary managed care director to a significant other at home: No Do you presently have visiting nurse or other home services: No Alcohol intake: current Alcohol intake frequency: a few times a month Patient Tobacco Use Status: Former Tobacco user Tobacco use type: Cigarette e-Cigarette/Vaping Use: Never Used Second Hand Smoke Exposure: No service: No Current occupational status: employed Cognitive needs: No Hearing needs: No Vision needs: Yes Female Reproductive History Menstrual Age of Menarche: 13 Menopause type: natural Physical Exam Vital Signs: Last Vital Signs BP 132/72 12/11/24 15:06 BMI result Body Mass Index 27.5 Other: External inspection only-vulva with areas of hypopigmentation, vitiligo changes, no lesions, no excoriations no fissures. Assessment & Plan Assessment & Plan (1) Lichen sclerosus of vulva: Code(s): N90.4 - Leukoplakia of vulva Category: Medical Plan Reviewed skin care, patient remains asymptomatic with biweekly dosing, overall area of improvement noted. Discuss use of medication and tapering to lower potency corticosteroid. Treat as needed p.r.n.. Call or come in sooner if any concerns, or not receiving relief from medication. Skin check in 4 months. The patient expressed understanding and agreement with the plan of care. All of her questions and concerns were addressed to the best of my ability. This note is constructed using voice recognition software. While every effort has been made to ensure accuracy, can feeder errors may have been included. Medications: New hydrocortisone valerate 0.2% Use at bedtime as directed 1 appl topical BEDTIME PRN 45 grams 1RF itch Coding Level of Care Code Est Pt Level 3 (85167) Diagnoses Lichen sclerosus of vulva N90.4
[2024-12-11 15:06] VITALS: BP 132/72; BMI 27.5
--- OUTSIDE RECORDS SUMMARY | 2024-12-11 15:24 | XMS_ITS | Patient Health Record ---
Author Organization [facility] Address [address] [place] [address] Care Team Providers Care Automatic Teller Machine Servicer Name Role Phone Michael Valadez MD Primary Care Provider Tom Llamas [phone] Allergies No Known Allergies Reason For Referral [...] Problem Status W/U Status Risk Notes Problem 248809943 Colon cancer screening (Z12.11) Active confirmed Problem Diverticular disease of colon (458268905) Diverticulosis of large intestine without perforation or abscess without bleeding (K57.30) Active confirmed Problem [id number] Preprocedural examination (Z01.818) Active confirmed Plan Of Treatment Future Test Test Name Order Date COLONOSCOPY 09/07/2022 Insurance Providers Payer Name Payer Address Payer Phone Subscriber Number Group Number Insured Name Patient Relationship to Insured Coverage Start Date Coverage End Date [facility] [address] [place] [address] [id number] GIOVANNI SILVEIRA Self - patient is the insured Medical (General) History Medical History History ICD Code HTN Leslie's Negative colonoscopy with Dr. Galdino goodman her early 50's Denies [place],DM,CVA,Lung disease,renal dise ase Surgical History Surgery Date(Month/Year) L4-L5 fusion 2011 Right carpal tunnel 2006
== END 2024-12-12 07:52 | disposition home or self-care (01) ==
LOC: HO.HWS 14:55
PROVIDERS: PCP Internal Medicine; Visit Provider Advanced Practice Midwife
DX: N90.4 Leukoplakia of vulva (principal)
CPT/HCPCS: 99213

== ENCOUNTER 2024-12-25 15:14 | Outpatient (AMB) | payer BC, SELFPAY ==
[2024-12-25 15:19] VITALS: BP 120/66; PULSE 77; RESP 18; TEMP 36.3; O2SAT 95; BMI 27.1
--- NOTE | 2024-12-25 15:19 | A.OFFPC_ITS ---
Vital Signs 12/25/24 15:19 Height 5 ft 3 in Weight 153 lb 2 oz BMI 27.1 BP 120/66 Blood Pressure Location Lt brachial Position Sitting Respiration 18 Pulse 77 Pulse Source Pulse Oximeter Temp 97.3 F Temp Source Temporal Artery Scan Pulse Oximetry (%) 95 Oxygen Delivery Method Room Air Intake Visit Reasons: KEV from Dr. Valadez 6mth f/u - see comments Tabulating Clerk Required: No Accompanied by: Self / Same As Patient Allergies No Known Allergies Allergy (Mild, Verified 12/25/24 15:42) N/A Medication List - Last Reconciled 12/25/24 by Lynn Torres MD aspirin 81 mg PO DAILY calcium carbonate-vitamin D3 500 mg-10 mcg (400 unit) (Calcium 500 + D) 1 tab PO DAILY clobetasol 0.05% 1 appl topical DAILY hydrochlorothiazide 25 mg PO DAILY hydrocortisone valerate 0.2% 1 appl topical BEDTIME PRN levothyroxine 75 mcg PO DAILY@0600 mometasone 0.1% topical ajmcvaph-tkk-geib-FA-vit K-lut 8 mg iron-400 mcg-50 mcg (Multivitamin Women 50 Plus) 1 tab PO DAILY Tobacco use date assessed: 12/25/24 Fall risk assessment: No Falls in past year Last assessed Fall Risk: 12/25/24 Dental Screening Dental Screen Date: 12/25/24 Did you have a dental visit in the last 12 months?: Yes Did you have a dental problem in the last 6 months where you did not have access to dental care?: No Was dental information given to patient?: Patient has dentist HPI HPI Comments History of Present Illness Details The patient is a 69-year-old female presenting with a transfer of care from a retired doctor. She has a history of hypertension, which is well controlled with hydrochlorothiazide. Her hypothyroidism was stable a year ago, and a TSH test is planned to reassess her thyroid function. The patient has a history of a neuroendocrine tumor, which is being monitored by general surgery and hematology oncology. Her last colonoscopy was in 2022, and her condition has been stable. 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 Colon cancer GERD (gastroesophageal reflux disease) Restless leg Leslie's disease Vitiligo Neuroendocrine neoplasm of gastrointestinal tract Hypothyroidism Hypertension Surgical History History of colon surgery Hx of colonoscopy History of carpal tunnel release History of spinal surgery Family History Father Melanoma Mother Urethra cancer Paternal Grandmother Uterine cancer Sister Pheochromocytoma Social History (Updated 12/25/24 @ 15:48 by Lynn Torres MD) Household Members: Spouse Housing: House Are you a primary career services representative to a significant other at home: No Do you presently have visiting nurse or other home services: No Alcohol intake: current Alcohol intake frequency: a few times a month Alcohol type: beer and other Patient Tobacco Use Status: Former Tobacco user Tobacco use type: Cigarette e-Cigarette/Vaping Use: Never Used Second Hand Smoke Exposure: No service: No Current occupational status: employed Cognitive needs: No Hearing needs: No Vision needs: Yes Female Reproductive History Menstrual Age of Menarche: 13 Questionnaire PHQ-9 Over the last 2 weeks, how often have you been bothered by any of the following problems? 1. Little interest or pleasure in doing things: not at all 2. Feeling down, depressed, or hopeless: not at all 3. Trouble falling or staying asleep, or sleeping too much: not at all 4. Feeling tired or having little energy: not at all 5. Poor appetite or overeating: not at all 6. Feeling bad about yourself - or that you are a failure or have let yourself or your family down: not at all 7. Trouble concentrating on things, such as reading the newspaper or watching television: not at all 8. Moving or speaking so slowly that other people could have noticed. Or the opposite - being so fidgety or restless that you have been moving around a lot more than usual: not at all 9. Thoughts that you would be better off or of hurting yourself in some way: not at all Total score: 0 Depression Screening Interpretation: Negative Depression Screening Done: Yes 39860 - PHQ-9 Billing: Yes Source: Developed by Drs. Tom Lehman, Archana Santos, Bhavin Payne and colleagues, with an educational clayton from [employer]. Thrive Questionnaire Date Thrive assessed: 12/25/24 I am a: Patient What is your living situation today?: I have a steady place to live Within the past 12 months, did the food you bought not last and you didn't have the money to get more?: Never true Within the past 12 months, did you worry whether your food would run out before you got money to buy more?: Never true Do you have trouble paying for medicines?: No Do you have trouble getting transportation to medical appointments?: No Do you have trouble paying your heating and electricity bill?: No Do you have trouble taking care of your child, family member or friend?: No Do you have trouble with day-to-day activities such as bathing, preparing meals, shopping, managing finances, etc.?: No Are you currently unemployed and looking for a job?: No Are you interested in more education?: No Please select the resources that you would like help with: None Currently or been in a relationship where the following occur: No concerns reported THRIVE Score: 0 AUDIT C Alcohol Use Questionnaire (AUDIT-C) 1. How often do you have a drink containing alcohol?: 2-4 times a month Total Score: 2 LIGIA-7 AMB Questionnaire LIGIA-7 Date LIGIA - 7 assessed: 12/25/24 Feeling nervous, anxious, or on edge: 0 = Not at all Not being able to stop or control worryin = Not at all Worrying too much about different things: 0 = Not at all Trouble relaxin = Not at all Being so restless that it is hard to sit still: 0 = Not at all Becoming easily annoyed or irritable: 0 = Not at all Feeling afraid as if something awful might happen: 0 = Not at all Total LIGIA-7 score (0-4 normal; 5-9 mild; 10-14 moderate; 15-21 severe): 0 Source: Developed by Drs. Tom Lehman, Archana Santos, Bhavin Payne and colleagues, with an educational clayton from [employer]. Review of Systems Const All systems reviewed & are unremarkable except as noted in HPI and below Card Denies chest pain at rest, Denies chest pain with activity, Denies edema, Denies irregular heart rhythm, Denies claudication, Denies dyspnea, Denies dyspnea on exertion, Denies orthopnea, Denies paroxysmal nocturnal dyspnea and Denies slow heart rate Resp Denies cough, Denies dyspnea and Denies dyspnea on exertion Physical exam (Primary Care) Vital Signs: Last Vital Signs Temp 97.3 F 12/25/24 15:19 Pulse 77 12/25/24 15:19 Resp 18 12/25/24 15:19 BP 120/66 12/25/24 15:19 Pulse Ox 95 12/25/24 15:19 Oxygen Delivery Method Room Air 12/25/24 15:19 BMI result Body Mass Index 27.1 Tobacco/Smoking Status: Tobacco use Status Tobacco use date assessed 12/25/24 12/25/24 15:27 Patient Tobacco Use Status Former Tobacco user 12/25/24 15:48 Tobacco use type Cigarette 12/25/24 15:48 e-Cigarette/Vaping Use Never Used 12/25/24 15:48 PHQ-9: PHQ-9 Score PHQ-9: Total score 0 12/25/24 15:44 Depression Screening Interpretation: Negative Thrive Assessment: Date of Thrive Assessment Date Thrive assessed 12/25/24 12/25/24 15:27 Currently or been in a relationship where the following occur: No concerns reported Resp Effort & Inspection: normal respiratory effort Auscultation: clear to auscultation bilaterally Cardio Jugular venous distension: no JVD Rate: regular rate Rhythm: regular rhythm Heart sounds: S1 normal heart sound present and S2 normal heart sound present Extrem General: Yes full ROM Coding Level of Care Code Est Pt Level 4 (67147) Complex EM visit Add On G2211 Diagnoses Hypertension I10 Hypothyroidism E03.9 Lichen sclerosus of vulva N90.4 Neuroendocrine neoplasm of gastrointestinal tract D3A.8 Additional Codes PHQ-9 - 84234 - PHQ-9 Billing: Yes ([id number]) Time Spent (min) 22 Assessment & Plan Assessment & Plan (1) Hypertension: Code(s): I10 - Essential (primary) hypertension Category: Medical (2) Hypothyroidism: Code(s): E03.9 - Hypothyroidism, unspecified Category: Medical (3) Lichen sclerosus of vulva: Code(s): N90.4 - Leukoplakia of vulva Category: Medical (4) Neuroendocrine neoplasm of gastrointestinal tract: Code(s): D3A.8 - Other benign neuroendocrine tumors Category: Medical Plan A TSH test will be ordered to reassess the patient's thyroid function, given th at the last test was a year ago. A DEXA scan will be ordered as the last scan was over two years ago. Orders: Orders XR DEXA axial skeleton Today Z78.0 - Asymptomatic menopausal state Thyroid Stimulating Hormone Today E03.9 - Hypothyroidism, unspecified Thyroid Stimulating Hormone 6 Months E03.9 - Hypothyroidism, unspecified
--- OUTSIDE RECORDS SUMMARY | 2024-12-25 16:08 | XMS_ITS | Patient Health Record ---
Author Organization [facility] Address [address] [place] [address] Care Team Providers Care Coconut Candy Maker Name Role Phone Michael Valadez MD Primary Care Provider Tom Llamas [phone] Allergies No Known Allergies Reason For Referral [...] Problem Status W/U Status Risk Notes Problem 316222327 Colon cancer screening (Z12.11) Active confirmed Problem Diverticular disease of colon (549677772) Diverticulosis of large intestine without perforation or abscess without bleeding (K57.30) Active confirmed Problem [id number] Preprocedural examination (Z01.818) Active confirmed Plan Of Treatment Future Test Test Name Order Date COLONOSCOPY 09/07/2022 Insurance Providers Payer Name Payer Address Payer Phone Subscriber Number Group Number Insured Name Patient Relationship to Insured Coverage Start Date Coverage End Date [facility] [address] [place] [phone] [id number] GIOVANNI SILVEIRA Self - patient is the insured Medical (General) History Medical History History ICD Code HTN Leslie's Negative colonoscopy with Dr. Galdino goodman her early 50's Denies MS,DM,CVA,Lung disease,renal dise ase Surgical History Surgery Date(Month/Year) L4-L5 fusion 2011 Right carpal tunnel 2006
== END 2024-12-25 15:54 | disposition home or self-care (01) ==
PROVIDERS: PCP Internal Medicine; Visit Provider Internal Medicine
DX: I10 Essential (primary) hypertension (principal); E03.9 Hypothyroidism, unspecified; N90.4 Leukoplakia of vulva; D3A.8 Other benign neuroendocrine tumors

== ENCOUNTER 2024-12-25 15:14 | Outpatient (REF) | payer BC, SELFPAY ==
[2024-12-25 16:50] LABS: Blood Urea Nitrogen 22 mg/dL (9-16); Estimated Glomerular Filt Rate 59
[2024-12-25 17:09] LABS: Thyroid Stimulating Hormone 2.93 uIU/mL (0.32-4.0)
== END 2024-12-25 15:15 | disposition home or self-care (01) ==
LOC: HO.LAB 15:14
PROVIDERS: PCP Internal Medicine; Visit Provider Internal Medicine
DX: I10 Essential (primary) hypertension (principal); E03.9 Hypothyroidism, unspecified; D3A.8 Other benign neuroendocrine tumors; N90.4 Leukoplakia of vulva; Z85.038 Personal history of other malignant neoplasm of large intestine
CPT/HCPCS: 36415; 82565; 84443; 84520; 96127

== ENCOUNTER 2025-03-12 14:39 | Outpatient (AMB) | payer BC, SELFPAY ==
--- NOTE | 2025-03-12 14:47 | A.OFFVIS_ITS ---
Intake Visit Reasons: OV-RT knee pain req inj Intake Note: Aparna is a 69 year old female who presents today for a follow up with complaints of right knee pain. At her last visit she was recommended activity modification and suggested supportive knee bracing. Discussed cortisone injections as a future possibility if activity-related flare-ups worsen. Today patient reports that she was seen in January [facility] [place] and was provided with a cortisone injection. She continues to have discomfort at night, as well as twinges. Her pain is better than before however her pain is still there and fluctuates in intensity. Allergies No Known Allergies Allergy (Mild, Verified 03/12/25 14:53) N/A Medication List - Last Reconciled 03/17/25 by Morro Garcia PA-C aspirin 81 mg PO DAILY calcium carbonate-vitamin D3 500 mg-10 mcg (400 unit) (Calcium 500 + D) 1 tab PO DAILY celecoxib (Celebrex) 200 mg PO BID 30 days clobetasol 0.05% 1 appl topical DAILY hydrochlorothiazide 25 mg PO DAILY hydrocortisone valerate 0.2% 1 appl topical BEDTIME PRN levothyroxine 75 mcg PO DAILY@0600 mometasone 0.1% topical ozzqgdze-kgh-okof-FA-vit K-lut 8 mg iron-400 mcg-50 mcg (Multivitamin Women 50 Plus) 1 tab PO DAILY HPI HPI OV-RT knee pain req inj: Details: 69 yo female returns to the office today for f/u right knee pain . She saw me in September of 2024 and in Jan she went to the urgent care and had an injection which was helpful but she continues to have flare ups. She complains of pain with going up and downstairs. She also has discomfort with twisting and bending. Feels the knee is unstable at times. 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 Colon cancer GERD (gastroesophageal reflux disease) Restless leg Leslie's disease Vitiligo Neuroendocrine neoplasm of gastrointestinal tract Hypothyroidism Hypertension Surgical History History of colon surgery Hx of colonoscopy History of carpal tunnel release History of spinal surgery Family History Father Melanoma Mother Urethra cancer Paternal Grandmother Uterine cancer Sister Pheochromocytoma Social History (Updated 12/25/24 @ 15:48 by Lynn Torres MD) Household Members: Spouse Housing: House Are you a primary career and technology education teacher to a significant other at home: No Do you presently have visiting nurse or other home services: No Alcohol intake: current Alcohol intake frequency: a few times a month Alcohol type: beer and other Patient Tobacco Use Status: Former Tobacco user Tobacco use type: Cigarette e-Cigarette/Vaping Use: Never Used Second Hand Smoke Exposure: No service: No Current occupational status: employed Cognitive needs: No Hearing needs: No Vision needs: Yes Female Reproductive History Menstrual Age of Menarche: 13 Review of Systems Const All systems reviewed & are unremarkable except as noted in HPI and below Physical Exam Const General: cooperative and no acute distress Orientation/consciousness: patient oriented x3 Resp Effort & Inspection: normal respiratory effort and able to speak in complete sentences Cardio Peripheral pulses: Peripheral pulses 2+ throughout Neuro General: patient oriented x3 Extrem Other: Right knee skin intact, no erythema or joint effusion. Tenderness along the medial joint line. ROM full with crepitus. Negative steinmans. No ligamentous laxity. NVI. Assessment & Plan Assessment & Plan (1) Osteoarthritis of right knee: Code(s): M17.11 - Unilateral primary osteoarthritis, right knee Category: Medical Plan An MRI of the right knee has been ordered to further evaluate the extent of her arthritis and surrounding structures. This will help determine the next step in her treatment given her continued pain with activities and instability. I also sent a prescription for celebrex to the pharmacy to help with occasional flare- ups. Since she just had an injection in the right knee in January, she would like to repeat the injection in 6 weeks with me and we will have her make an appointment for this as well. Once the MRI is complete I will contact her to discuss the next step in her results. Orders: Orders MR knee RT wo con 03/12/25 M17.11 - Unilateral primary osteoarthritis, right knee Medications: New celecoxib (Celebrex) 200 mg PO BID 60 caps 3RF 30 days Coding Level of Care Code Est Pt Level 3 (03520) Complex EM visit Add On G2211 Diagnoses Osteoarthritis of right knee M17.11
--- OUTSIDE RECORDS SUMMARY | 2025-03-12 17:49 | XMS_ITS | Patient Health Record ---
Author Organization [facility] Address [address] [place] [address] Care Team Providers Care Pattern Stamper Name Role Phone Lynn Schreiber Primary Care Provider Unavailab Tom Baxter Unavailable [phone] Allergies No Known Allergies Reason For Referral Referring Provider First Name Lynn Referring Provider Last Name Margarito Torres Referring Provider Speciality Internal M edicine Referred Organization [facility] Referred Provider Tom Roberts Referred Address [address],[place], [place],[address], Referred Provider Specialty Gastroentero logy Referral Priority Routine Medications Medication SIG (Take, Route, Frequency, Duration) Notes Start Date End Date Status One A Day Women 50 Plus - as directed Orally Active Calcium + D 500-1000-40 MG-UNT-MCG as directed Orally Active Aspirin 81 81 MG 1 tablet Orally Once a day; Duration: 30 day(s) Active hydroCHLOROthiazide 25 MG 1 tablet in th e morning Orally Once a day; Duration: 30 day(s) Active Levothyroxine Sodium 75 MCG 1 tablet in the morning on an empty stomach Orally Once a day; Duration: 30 day(s) Active Immunizations Vaccine Route Administration [...] Problem Status W/U Status Risk Notes Problem Colon cancer screening (830065715) Colon cancer screening (Z12.11) Active confirmed Problem Diverticular disease of colon (597310599) Diverticulosis of large intestine without perforation or abscess without bleeding (K57.30) Active confirmed Problem Preprocedural examination (956356611537099) Preprocedural examination (Z01.818) Active confirmed Plan Of Treatment Future Test Test Name Order Date COLONOSCOPY 09/07/2022 Next Appt Details Provider Name:Tom Roberts , 06/04/2025 02:00:00 PM, [address] [place] [address], [address], [place], [address], Insurance Providers Payer Name Payer Address Payer Phone Subscriber Number Group Number Insured Name Patient Relationship to Insured Coverage Start Date Coverage End Date [facility] [address] [place] [address] [id number] GIOVANNI SILVEIRA Self - patient is the insured Medical (General) History Medical History History ICD Code HTN Leslie's Negative colonoscopy with Dr. Galdino goodman her early 50's Denies [place],DM,CVA,Lung disease,renal dise ase Surgical History Surgery Date(Month/Year) L4-L5 fusion 2011 Right carpal tunnel 2006
--- OUTSIDE RECORDS SUMMARY | 2025-03-12 17:49 | XMS_ITS ---
Author Name Amari Willson Address Unknown Organization [facility] Care Team Providers Care Medical Doctor Nuclear Medicine Name Role Phone Unavailable Primary Care Physician Unavailab le History Of Present Illness This is a 69 year old female who is an established patient who is being seen for an evaluation of skin lesions.Location: body throughoutQuality: asymptomaticDuration: yearsPertinent History: no previous skin cancer and family history of melanoma (Father)Pertinent Negatives: no family history of non- melanoma skin cancerAdditional Visit Reasons: education and counseling about sun exposure, evaluation for suspicious growths, and evaluation of current neviAdditional History: Patient presents for a CSE. No concerns. Medications Medication Generic Name RxNorm Strength Strength Unit Route Dose Dose Form Frequency Date Started Date Ended Status Indication Sig clobetasol 290473 0.05 % Topica l 1 ointm ent bid active hydrocortis one valerate 9378569 0.2 % Topica l 1 cream bid active mometasone mometaso ne 314292 0.1 % Topica l 1 ointm ent bid 04/26/20 23 active Appl y BID to whit e patc hes in the mook leticia a (usi ng hand mirr or) BID x12 week s or unti l lilly r. Use BID on back x 2 week s, then take 1 week annalisa bowling Can repe at afte r off week if not lilly r hydrochloro thiazide 718410 25 mg Oral 1 table t qd active levothyroxi ne 523433 75 mcg Oral 1 table t qd active AFLURIA PF 5948-0243 .5 ML MANI NULL 02/09 15 active AZITHROMYCI N 250 MG TABS NULL 02/10/20 15 active HYDROCHLORO THIAZIDE 25 MG TABS NULL 02/10/20 15 active HYDROCHLORO THIAZIDE 25 MG TABS NULL 02/10/20 15 active Levothyroxi ne Sodium NULL 15 suspend ed LEVOTHYROXI NE SODIUM 75 MCG TABS NULL 09/24 15 active LEVOTHYROXI NE SODIUM 75 MCG TABS NULL 09/24 15 active Protopic NULL 10/07/19 12 active Sulfamethox azole-TMP DS NULL 06/02/19 15 active Triamcinolo ne Acetonide NULL 17 suspend ed Problems Problem Code Type Status Date of Diagnosis Da te of Resolution Family history of malignant neoplasm (situation) 251901248(SN OMED) Diagnosis active 03/10/2025 Lichen sclerosus (disorder) 153980987(SN OMED) Diagnosis active 03/10/2025 Vitiligo (disorder) 46461933(SNO MED) Diagnosis active 03/10/2025 Melanocytic nevus of trunk (disorder) 123213562(SN OMED) Diagnosis active 03/10/2025 Seborrheic keratosis (disorder) 615864538(SN OMED) Diagnosis active 03/10/2025 Disorder of pigmentation (disorder) 490284820(SN OMED) Diagnosis active 03/10/2025 Hemangioma of skin and subcutaneous tissue (disorder) 496960529(SN OMED) Diagnosis active 03/10/2025 Lichen sclerosus (disorder) 896437926(SN OMED) Diagnosis active 02/05/2024 Disorder of skin (disorder) 27550807(SNO MED) Diagnosis active 02/05/2024 Vitiligo (disorder) 73601465(SNO MED) Diagnosis active 02/05/2024 Melanocytic nevus of trunk (disorder) 417985282(SN OMED) Diagnosis active 02/05/2024 Seborrheic keratosis (disorder) 034911746(SN OMED) Diagnosis active 02/05/2024 Hemangioma of skin and subcutaneous tissue (disorder) 537765302(SN OMED) Diagnosis active 02/05/2024 Disorder of pigmentation (disorder) 008687621(SN OMED) Diagnosis active 02/05/2024 Family history of malignant neoplasm (situation) 682261326(SN OMED) Diagnosis active 02/05/2024 Lichen sclerosus (disorder) 856233857(SN OMED) Diagnosis active 07/27/2023 Lichen sclerosus (disorder) 078065849(SN OMED) Diagnosis active 04/26/2023 Inflammatory dermatosis (disorder) 187696966(SN OMED) Diagnosis active 01/31/2023 Vitiligo (disorder) 83335336(SNO MED) Diagnosis active 01/31/2023 Melanocytic nevus of trunk (disorder) 808059910(SN OMED) Diagnosis active 01/31/2023 Disorder of skin (disorder) 07599738(SNO MED) Diagnosis active 01/31/2023 Seborrheic keratosis (disorder) 294105455(SN OMED) Diagnosis active 01/31/2023 Hemangioma of skin and subcutaneous tissue (disorder) 997484832(SN OMED) Diagnosis active 01/31/2023 Disorder of pigmentation (disorder) 006851141(SN OMED) Diagnosis active 01/31/2023 Family history of malignant neoplasm (situation) 034493510(SN OMED) Diagnosis active 01/31/2023 Seborrheic keratosis (disorder) 009605117(SN OMED) Diagnosis active 08/11/2020 Vitiligo (disorder) 47280724(SNO MED) Diagnosis active 08/11/2020 Disorder of skin (disorder) 46774273(SNO MED) Diagnosis active 08/11/2020 Encounter for removal of sutures Z48.02(ICD-1 0) Diagnosis active 02/05/2019 Dermatitis, unspecified L30.9(ICD-10 ) Diagnosis active 02/05/2019 Other specified health status Z78.9(ICD-10 ) Diagnosis active 10/09/2018 Other specified health status Z78.9(ICD-10 ) Diagnosis active 10/09/2018 Melanocytic nevus of trunk (disorder) 770272387(SN OMED) Diagnosis active 10/09/2018 Other specified health status Z78.9(ICD-10 ) Diagnosis active 11/14/2017 Melanocytic nevus of trunk (disorder) 353530292(SN OMED) Diagnosis active 11/14/2017 Melanocytic nevus of trunk (disorder) 229228572(SN OMED) Diagnosis active 11/14/2016 Benign neoplasm of skin of trunk (disorder) 06768543(SNO MED) Diagnosis active 10/07/2015 Vitiligo (disorder) 70914303(SNO MED) Diagnosis active 02/09/2015 Vitiligo (disorder) 49987116(SNO MED) Diagnosis active 12/11/2014 Vitiligo (disorder) 33639538(SNO MED) Diagnosis active 11/21/2014 Disorder of skin pigmentation (disorder) 82393742(SNO MED) Diagnosis active 10/08/2014 Benign neoplasm of scalp and skin of neck (disorder) 471283954(SN OMED) Diagnosis active 06/02/2014 Non-neoplastic nevus (disorder) 694202970(SN OMED) Diagnosis active 09/24/2013 Increased blood pressure (finding) 18674087(SNO MED) Problem active Leslie thyroiditis (disorder) 46358019(SNO MED) Problem active Acne (disorder) 57655875(SNO MED) Problem active History of skin disorder (situation) 281248376(SN OMED) Problem active Results No data Encounters Service provided at [address], [address], [place], [place] [id number]. Office phonenumber is [phone]. Office fax number is [phone]. Encounter Diagnosis Location Date / Time Type Family history of malignant melanoma (Z80.8)Lichen Sclerosus (L90.0)Vitiligo (L80)Benign Appearing Nevi (D22.5)Seborrheic Keratoses (L82.1)Lentigines (L81.4)Castelan Angiomas (D18.01) [facility] 03/10/2025 20:30:[address] [facility] [id number] Reason For Referral No data Family history FATHER Diagnosis Age At Onset Family history of malignant melanoma (si tuation) Procedures Procedure Date Documentation of current medications (pr ocedure) 03/10/2025 12:[address] [facility] Shave biopsy (procedure) 01/31/2023 12:[address] [facility] Cryotherapy of skin lesion with liquid n itrogen (procedure) 08/11/2020 12:[address] [facility] Documentation of past medical history (p rocedure) Documentation of past medical history (p rocedure) Documentation of past medical history (p rocedure) Documentation of past medical history (p rocedure) Documentation of past medical history (p rocedure) Documentation of past medical history (p rocedure) Documentation of past medical history (p rocedure) Documentation of past medica l history (procedure) Colon resection- neuroendocrine 03/02/23.Back surgery fusion - has rods and screws Review Of Systems Provider reviewed on Mar 10, 2025.A focused review of systems was performed including Endocrine, Hematologic / Lymphatic, and Integumentary and was notable for thyroid problems.No Problems With Healing, No Problems With Scarring (hypertrophic Or Keloid), And No Problems With Bleeding. 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 Not examined.CounselingRecords Reviewed:.Prescription Medication Management: Plan - :- Continue topical mometasone ointment prn as previously prescribed- Followed by mate ship- Asymptomatic;.Monitoring3.Vitiligo, Status: StableCounselingPatient Specific Counseling: - - Discussed treatment options- Pt has tried lasers and topical medications without good results- Pt not interested in tx at this timeShe has had vitiligo for many years and it has been progressive. It is quite extensive, but there is not a huge contrast between her normal college skin and the vitiligo patches. She is content for the moment. She does have thyroid disease which is being treated. We did discuss with her the option of phototherapy , but she is not interested in the extent of her treatment is too much for topical therapy. Perhaps in the future, there will be oral MARLENY inhibitor which may be effective.;.4.Benign Appearing NeviCounseling5.Seborrheic KeratosesCounseling6.LentiginesCounseling7.Castelan AngiomasCounseling Plan of Care Future visit for 03/10/2026 - Follow up in 1 year for: Skin Check - 15 minutes Code Detail Instructions [id number] mometasone 0.1 % topical ointmen t Apply BID to white patches in the genitalia (using hand mirror) BID x12 weeks or until clear. Use BID on back x 2 weeks, then take 1 week break. Can repeat after off week if not clear Instructions * I counseled the patient regarding the following:Patients with a family history of melanoma should wear broad spectrum sunscreen and sun protective clothing. They should have routine complete ophthalmologic visits due to rare risk of ocular melanoma.Patients with a family history of melanoma from a 1st degree relative have a higher risk of developing a melanoma compared with the rest of the population. Monthly self-skin checks should be performed to monitor for any moles that change in size, shape or color, itch burn or bleed.Patient notices any new or changing moles. * I counseled the patient regarding the following:Skin care: Lichen Sclerosus can be treated with high potency topical steroids and calcineurin inhibitors.Expectations: Lichen Sclerosus is a progressive inflammatory dermatosis that manifests as atrophic white plaques. Common locations include male and female genitalia. Rarely, Squamous Cell Carcinoma can arise within lesions.Contact office if: lesions fail to improve despite therapy, or if non- healing or painful papules arise within lesions. * I counseled the patient regarding the following:Skin Care: Vitiligo can respond to phototherapy, ambient sun exposure, topical steroids, topical calcineurin inhibitors.Expectations: Vitiligo is an autoimmune process against melanocytes (pigment making cells) resulting in depigmentation or white spots in the skin. Severity and prognosis can vary. Associations include thyroid disease, pernicious anemia, and diabetes.Contact Office if: Vitiligo spreads or fails to improve despite months of treatment. * - Discussed treatment options- Pt has tried lasers and topical medications without good results- Ptnot interested in tx at this timeShe has had vitiligo for many years and it has been progressive. It is quite extensive, but there is not a huge contrast between her normal college skin and the vitiligo patches. She is content for the moment. She does have thyroid disease which is being treated. Wedid discuss with her the option of phototherapy , but she is not interested in the extent of her treatment is too much for topical therapy. Perhaps in the future, there will be oral MARLENY inhibitor which may be effective. * I counseled the patient regarding the following:ABCDEs of MM reviewed, handout provided. Monthly self skin exam with prompt reporting of concerns advised.Expectations: Benign Nevi are pigmented nestsof cells within the skin. No treatment is necessary.Contact Office if: Any moles change in size, shape or color; itch, burn or bleed. * I counseled the patient regarding the following:Counseling: Education and reassurance provided, benign.Expectations: Seborrheic Keratoses are benign warty growths. Patients get more of them as they age. * I counseled the patient regarding the following:Education, sun safety reviewed.Expectations: Lentigines are benign pigmented lesions that occur on sun-exposed and sun-damaged skin. They are easily treatable.I recommended the following: Sunscreen * I counseled the patient regarding the following:Counseling: Education and reassurance provided, benign.Expectations: Castelan Angiomas are benign vascular growths. No treatment is necessary. Social History Code Activity Start Date End Date [id number] (SNOMED) Former smoker Sex female Sexual orientation Unspecified Gender identity Unspecified Vital Signs No data
== END 2025-03-12 15:19 | disposition home or self-care (01) ==
LOC: HO.HOS 14:40
PROVIDERS: PCP Internal Medicine; Visit Provider Physician Assistant
DX: M17.11 Unilateral primary osteoarthritis, right knee (principal)
CPT/HCPCS: 99214